=== PATIENT | male | born 1945 | race Caucasian/White ===

== ENCOUNTER 2017-07-03 20:06 | Inpatient (IN) | payer OTHER ==
[~2017-07-03] VITALS: Ht 182.9 cm; Wt 74.0 kg
[~2017-07-03 20:06] MED LIST: BUPR-79 PO; CRD1 PO; CTP1 PO; FINA5TAB PO; FLR1 PO; MULT-589 PO; PHEN-1043 PO; SERT-234 PO; SYMIN INH
[2017-07-03] MEDS ORDERED: SYMIN160 INH (20:52)
[2017-07-03] MEDS ORDERED: DOXA1TAB88 PO (20:52)
--- NOTE | 2017-07-03 21:52 | EMERGENCY ROOM VISIT NOTE ---
History Report prepared by Shivaibtheo: Kathi Lugo Under the Supervision of: Dr. Mindy Cool D.O. First contact with patient: 21:08 Chief Complaint: SHORTNESS OF BREATH Stated Complaint: TROUBLE BREATHING History of Present Illness The patient is a 72 year old male who presents to the Emergency Room with complaints of persistent shortness of breath. He has a history of COPD and states he has been short of breath for the past day. He has tried using his inhalers with minimal relief. He is still a current smoker. The patient also admits he is an alcoholic and states his last drink was earlier this morning after 5 days straight of drinking. He denies any history of seizures with his alcohol use or experiencing the DT's when he stops drinking. The patient states he was sober for 12 years before he started drinking again after losing his son and in the period of 5 months. He admits he has been nauseous and vomiting since he stopped drinking this morning. He has also experienced some abdominal pain from his vomiting. He denies any recent fevers, hematemesis, chest pain, melena or hematochezia. He denies any feelings of suicidal or homicidal ideation. He denies any visual or auditory hallucinations. Source of History: patient Onset: USED CAR [employer]OV[employer] Position: chest Quality: other (shortness of breath) Timing: other (persistent) Associated Symptoms: + nausea, + vomiting, + abdominal pain, No fevers, No chest pain, No melena, No hematochezia Review of Systems See HPI for pertinent positives & negatives. A total of 10 systems reviewed and were otherwise negative. Past Medical & Surgical Medical Problems: (1) Alcohol withdrawal (2) COPD (chronic obstructive pulmonary disease) (3) Hypertensive urgency (4) Mild emphysema Family History Diabetes mellitus Heart disease Hypertension Social History Smoking Status: Current Every Day Smoker Alcohol Use: occasionally Drug Use: none Marital Status: Housing Status: lives alone Occupation Status: employed Current/Historical Medications Scheduled Budesonide/Formoterol Fumarate (Symbicort 160/4.5 Inhaler ), 2 PUFFS INH BID Doxazosin Mesylate (Doxazosin Mesylate), 1 MG PO HS Sertraline (Zoloft), 2 TABS PO DAILY Allergies Coded Allergies: No Known Allergies (Unverified , 07/03/17) Physical Exam Vital Signs Date Time Temp Pulse Resp B/P (MAP) Pulse Ox O2 Delivery O2 Flow Rate FiO2 07/04/17 02:01 111 22 195/126 96 Room Air 07/04/17 01:35 109 26 201/128 96 Room Air 07/04/17 00:00 66 14 191/98 94 Room Air 07/03/17 23:49 68 07/03/17 23:10 94 16 187/119 97 Room Air 07/03/17 20:30 96 Room Air 07/03/17 20:18 36.3 93 20 137/91 95 Physical Exam GENERAL: Patient is alert, ill appearing, well nourished, no distress, non- toxic. EYE EXAM: normal conjunctiva, PERRL and EOM's grossly intact OROPHARYNX: no exudate, no erythema, lips, buccal mucosa, and tongue normal, mucous membranes are dry NECK: supple, no nuchal rigidity, no adenopathy, non-tender LUNGS: Breath sounds are decreased. Normal chest wall mechanics. No wheezes, rhonchi or rails. HEART: no murmurs, S1 normal and S2 normal ABDOMEN: abdomen soft, non-tender, normo-active bowel sounds, no masses, no rebound or guarding. BACK: Back is symmetrical on inspection and there is no deformity, no midline tenderness, no CVA tenderness. SKIN: no rashes and no bruising UPPER EXTREMITIES: upper extremities are grossly normal. LOWER EXTREMITIES: No pitting edema. NEURO EXAM: Fine tremor. Normal sensorium, cranial nerves II-XII grossly intact , normal speech, no gross weakness of arms, no gross weakness of legs. Medical Decision & Procedures ER Provider Diagnostic Interpretation: Radiology results have been interpreted and reviewed by me. ABDOMEN X-RAY 2 areas of plate like atelectasis in the left lung. No effusion. No wide mediastinum. No focal consolidation. Radiology results have been interpreted by the radiologist and reviewed by me. CT CHEST With Contrast: Comparison: CXR 07/03/17. There is rounded atelectasis in the left lower lobe with pleural thickening posteriorly and a small pleural calcification, possibly the sequela of previous pulmonary infection or asbestos-related pleural disease. There is no airspace consolidation, pleural effusion, or pneumothorax. There is mild centrilobular emphysema. Normal heart size. No pericardial effusion. Normal caliber main pulmonary artery. Thoracic aortic atherosclerosis without aneurysm. Multicompartment mediastinal lymph nodes, not significant by size criteria. Unremarkable visualized upper abdomen. No acute osseous findings. Radiologist: Cullen Xavier M.D. Laboratory Results Test 07/03/17 22:10 07/04/17 01:41 07/04/17 01:45 Immature Granulocyte % (Auto) 0.2 % White Blood Count 6.01 K/uL (4.8-10.8) Red Blood Count 4.91 M/uL (4.7-6.1) Hemoglobin 14.5 g/dL (14.0-18.0) Hematocrit 42.1 % (42-52) Mean Corpuscular Volume 85.7 fL (80-100) Mean Corpuscular Hemoglobin 29.5 pg (25-34) Mean Corpuscular Hemoglobin Concent 34.4 g/dl (32-36) Platelet Count 97 K/uL (130-400) Mean Platelet Volume 10.7 fL (7.4-10.4) Neutrophils (%) (Auto) 82.4 % Lymphocytes (%) (Auto) 8.5 % Monocytes (%) (Auto) 8.2 % Eosinophils (%) (Auto) 0.5 % Basophils (%) (Auto) 0.2 % Neutrophils # (Auto) 4.96 K/uL (1.4-6.5) Lymphocytes # (Auto) 0.51 K/uL (1.2-3.4) Monocytes # (Auto) 0.49 K/uL (0.11-0.59) Eosinophils # (Auto) 0.03 K/uL (0-0.5) Basophils # (Auto) 0.01 K/uL (0-0.2) Immature Granulocyte # (Auto) 0.01 K/uL (0.00-0.02) Platelet Estimate DECREASED Phosphorus Level 2.7 mg/dl (2.5-4.9) Magnesium Level 2.3 mg/dl (1.8-2.4) Total Bilirubin 0.7 mg/dl (0.2-1) Aspartate Amino Transf (AST/SGOT) 84 U/L (15-37) Alanine Aminotransferase (ALT/SGPT) 31 U/L (12-78) Alkaline Phosphatase 95 U/L (45-117) Troponin I < 0.015 ng/ml (0-0.045) Pro-B-Type Natriuretic Peptide 97 pg/ml (0-900) Total Protein 7.9 gm/dl (6.4-8.2) Albumin 3.9 gm/dl (3.4-5.0) Globulin 4.0 gm/dl (2.5-4.0) Albumin/Globulin Ratio 1.0 (0.9-2) Ethyl Alcohol mg/dL 35.0 mg/dl (0-3) Urine Color YELLOW Urine Appearance CLEAR (CLEAR) Urine pH 6.5 (4.5-7.5) Urine Specific [place] 1.025 (1.000-1.030) Urine Protein NEG (NEG) Urine Glucose (UA) TRACE (NEG) Urine Ketones TRACE (NEG) Urine Occult Blood TRACE (NEG) Urine Nitrite NEG (NEG) Urine Bilirubin NEG (NEG) Urine Urobilinogen NEG (NEG) Urine Leukocyte Esterase SMALL (NEG) Urine WBC (Auto) 1-5 /hpf (0-5) Urine RBC (Auto) 0-4 /hpf (0-4) Urine Hyaline Casts (Auto) 0 /lpf (0-5) Urine Epithelial Cells (Auto) 5-10 /lpf (0-5) Urine Bacteria (Auto) NEG (NEG) Urine Opiates Screen NEG (NEG) Urine Methadone, Qualitative NEG (NEG) Urine Barbiturates NEG (NEG) Urine Phencyclidine (PCP) Level NEG (NEG) Ur Amphetamine/Methamphetamine NEG (NEG) MDMA (Ecstasy) Screen NEG (NEG) Urine Benzodiazepines Screen NEG (NEG) Urine Cocaine Metabolite NEG (NEG) Urine Marijuana (THC) NEG (NEG) Bedside Lactic Acid Venous 2.76 mmol/L (0.90-1.70) Laboratory results per my review. Medications Administered Medications (Trade) Dose Ordered Sig/Frances Route Start Time Stop Time Status Last Admin Dose Admin Sodium Chloride 1,000 ml @ 999 mls/hr Q1H1M STAT IV 07/03/17 21:53 07/03/17 22:53 DC 07/03/17 23:50 999 MLS/HR Diazepam (Valium Inj) 5 mg NOW STAT IV 07/03/17 22:49 07/03/17 22:50 DC 07/03/17 23:51 5 MG Sodium Chloride 1,000 ml @ 999 mls/hr Q1H1M STAT IV 07/03/17 23:04 07/04/17 00:04 DC 07/03/17 23:51 999 MLS/HR Albuterol/ Ipratropium (Duoneb) 3 ml NOW STAT INH 07/04/17 00:02 07/04/17 00:03 DC 07/04/17 01:53 3 ML Multivitamins 10 ml/Thiamine HCl 100 mg/Folic Acid 1 mg/Sodium Chloride 1,011.2 ml @ 500 mls/ hr Q2H2M ONCE IV 07/04/17 01:15 07/04/17 03:16 DC 07/04/17 01:53 500 MLS/HR Methylprednisolone Sodium Succinate (Solu-Medrol IV) 125 mg NOW STAT IV 07/04/17 01:51 07/04/17 01:52 DC 07/04/17 01:55 125 MG Pantoprazole Sodium 40 mg/ Syringe 10 ml @ 5 mls/min NOW ONCE IV 07/04/17 02:00 07/04/17 02:01 DC 07/04/17 02:17 5 MLS/MIN Diazepam (Valium Inj) 5 mg NOW STAT IV 07/04/17 02:00 07/04/17 02:01 DC 07/04/17 02:18 5 MG ECG Indication: SOB/dyspnea Rate (beats per minute): 85 Rhythm: sinus rhythm Findings: no acute ischemic change, no ectopy, other (normal axis, normal intervals) ED Course 2142: The patient was evaluated in room C2. A complete history and physical exam was performed. 2153: NSS 1000 ml @ 999 mls/hr IV. 2249: Valium 5 mg IV. 2304: NSS 1000 ml @ 999 mls/hr IV. 0000: I reevaluated the patient. He states he feels better after receiving the Valium and IV fluids. 0002: Duoneb 3 ml INH. 0115: Multivitamins 10 ml/Thiamine HCl 100 mg/Folic Acid 1 mg/NSS 1011.2 ml @ 500 mls/hr IV. 0151: Solu-Medrol 125 mg IV. 0200: Pantoprazole Sodium 40 mg/Syringe 0208: I reevaluated the patient. He is still hypertensive. He is not tachycardic. He is otherwise resting comfortably. I discussed my recommendation that he remain in the hospital for further evaluation and management. He verbalized complete understanding and agreement. 0220: I discussed the patients case with Dr. Tolliver, FP resident working with [facility] Hospitalist. The patient will be further evaluated. Medical Decision Prior records/ancillary studies reviewed. Triage Nursing notes reviewed. The patient's history was concerning for respiratory difficulties. Differential diagnosis: Etiologies such as infections, reactive airway disease, pneumonia, pneumothorax , COPD, CHF, cardiac ischemia, pulmonary embolism, musculoskeletal, gastrointestinal, as well as others were entertained. No evidence for DT's, no seizures. Pt hypertensive but not tachycardic, no hallucinations. No evidence of occult infection, not hypoxic. Likely breathing worse from not using inhalers this week while driving. Doubt PE, cxr abnormal but CT without any additional acute pathology. Thrombocytopenia likely chronic from EtOH. No evidence of infectious etiology. Pt given IVF as AG and elevated lactate likely from Etoh and dehydration. Lactate improved. Doubt occult bacteremia/sepsis. Pt given valium to help with withdrawal sx. Pt admitted for continued monitoring given age, risk, sx. BP improved with valium but would begin to escalate again as effects of valium would wear off. Doubt cardiac pathology, no evidence fo Gi bleed, given protonix as a precaution given etoh hx and vomiting. Abd soft/nt, doubt additional Gi pathology. Medication Reconcilliation Current Medication List: was personally reviewed by me Blood Pressure Screening Patient's blood pressure: Elevated blood pressure Blood pressure disposition: Referred to PCP Consults Time Called: 0201 Consulting Physician: Dr. Tolliver, [facility] Hospitalist Returned Call: 0220 I discussed the patients case with Dr. Tolliver, [facility] Hospitalist. The patient will be further evaluated. Impression Primary Impression: COPD exacerbation Additional Impressions: Alcohol withdrawal Thrombocytopenia Hypertension Scribe Attestation The scribe's documentation has been prepared under my direction and personally reviewed by me in its entirety. I confirm that the note above accurately reflects all work, treatment, procedures, and medical decision making performed by me. Departure Information Dispostion Being Evaluated By Hospitalist Referrals No Doctor, Assigned (PCP) Patient Instructions [facility] Problem Qualifiers Additional Impressions: Alcohol withdrawal Complication of substance-induced condition: uncomplicated Qualified Codes: F10.230 - Alcohol dependence with withdrawal, uncomplicated Hypertension Hypertension type: essential hypertension Qualified Codes: I10 - Essential ( primary) hypertension
[2017-07-03] MEDS ORDERED: SODIUM CHLORIDE 0.9% 1000ML 1,000 ML IV STA ×2 (21:53→23:04)
[2017-07-03] MEDS ORDERED: DIAZEPAM INJ 5 MG/ML 2 ML CARP IV STA (22:49)
[2017-07-03 23:01] LABS: HEMATOCRIT 42.1 % (42-52); MEAN CELL VOLUME 85.7 fL (80-100); MEAN CORPUSCULAR HEMOGLOBIN 29.5 pg (25-34); MEAN CORPUSCULAR HGB CONC 34.4 g/dl (32-36); MEAN PLATELET VOLUME 10.7 fL (7.4-10.4); PLATELET COUNT 97 K/uL (130-400); RED BLOOD COUNT 4.91 M/uL (4.7-6.1); WHITE BLOOD COUNT 6.01 K/uL (4.8-10.8)
[2017-07-03 23:03] LABS: ALT/SGPT 31 U/L (12-78); AST/SGOT 84 U/L (15-37); BASO % 0.2 %; BASO ABS # 0.01 K/uL (0-0.2); BLOOD UREA NITROGEN 21 mg/dl (7-18); BUN/CREATININE RATIO 18.6 (10-20); CALCIUM 8.9 mg/dl (8.5-10.1); CARBON DIOXIDE 20 mmol/L (21-32); CHLORIDE 101 mmol/L (98-107); COMPLETE YES; EOS % 0.5 %; GLUCOSE 92 mg/dl (70-99); IG% 0.2 %; LYMPH % 8.5 %; LYMPH ABS # 0.51 K/uL (1.2-3.4); MAGNESIUM 2.3 mg/dl (1.8-2.4); MONO % 8.2 %; NEUT % 82.4 %; PLT ESTIMATE DECREASED; SODIUM 136 mmol/L (136-145)
[2017-07-03 23:08] LABS: ALKALINE PHOSPHATASE 95 U/L (45-117); PHOSPHORUS 2.7 mg/dl (2.5-4.9)
[2017-07-04] VITALS (16 sets, daily range): BP systolic 137–198; BP diastolic 84–117; PULSE 81–115; TEMP 36.3–36.9; O2SAT 94–97; Ht 182.9 cm; Wt 74.0 kg
[2017-07-04] MEDS ORDERED: ALBUT/IPRATROP 3MG/0.5MG NEB 3 ML VIAL INH STA (00:02)
[2017-07-04] MEDS ORDERED: OPTIRAY 320 IV PRN (00:15)
[2017-07-04] MEDS ORDERED: MULTI-VITAMIN INFUSION INJ 10 ML, THIAMINE HCL INJ 100 MG, FoLIC ACID INJ 1 MG in SODIU... IV ONE (01:15)
[2017-07-04] MEDS ORDERED: METHYLPREDNISOLONE 125 MG VIAL IV STA (01:51)
[2017-07-04 01:52] LABS: URINE APPEARANCE CLEAR (CLEAR); URINE BILIRUBIN NEG (NEG); URINE COLOR YELLOW; URINE NITRITE NEG (NEG); URINE PH 6.5 (4.5-7.5); URINE SPECIFIC GRAVITY 1.025 (1.000-1.030); UROBILINOGEN NEG (NEG); ZZUR CULT IF INDIC CLEAN CATCH NO
[2017-07-04] MEDS ORDERED: PANTOprazole INJ 40 MG in SYRINGE 0 ML IV ONE (02:00)
[2017-07-04] MEDS ORDERED: DIAZEPAM INJ 5 MG/ML 2 ML CARP IV STA (02:00)
[2017-07-04 02:10] LABS: BENZODIAZEPINE, URINE NEG (NEG); COCAINE,URINE NEG (NEG); PHENCYCLIDINE, URINE NEG (NEG)
[2017-07-04 02:19] LABS: MANUAL MICROSCOPIC REQUIRED? NO; REVIEW REQ? NO
[2017-07-04] MEDS ORDERED: LORAZEPAM 1 MG TAB PO PRN (02:45)
[2017-07-04] MEDS ORDERED: MAGNESIUM HYDROXIDE SUSP 30 ML UDC PO PRN (02:45)
[2017-07-04] MEDS ORDERED: ONDANSETRON INJ 2 MG/ML 2 ML VIAL IV PRN (02:45)
[2017-07-04] MEDS ORDERED: CHLORDIAZEPOXIDE 25 MG CAP PO SCH (02:45)
[2017-07-04] MEDS ORDERED: ALUMINUM/MAGNESIUM/SIMETH (MAALOX MAX) 30 ML UDC PO PRN (02:45)
[2017-07-04] MEDS ORDERED: HydrALAZINE HCL 20 MG/ML VIAL IV. PRN (02:45)
[2017-07-04] MEDS ORDERED: ACETAMINOPHEN 325 MG TAB PO PRN (02:45)
[2017-07-04] MEDS ORDERED: POLYETHYLENE (MIRALAX) 17 GM PACK PO PRN (02:45)
--- NOTE | 2017-07-04 03:00 | History and Physical ---
History & Physical Date & Time of Service: Jul 04, 2017 at 02:46 Chief Complaint: Trouble Breathing Primary Care Physician: No Doctor, Assigned History of Present Illness Source: patient, family, hospital records Mr Sauceda is a 72 yo M with known cigarette & alcohol abuse (last admission 1 year ago, had previously been sober about 12 years), who presents today after 5 days of binge drinking which he stopped doing this morning. He reports he has COPD and he felt short of breath today and his inhaler did not provide relief. He denies chest pain. He was previously sober for a long time, but lost his and son in a 5 month period, which made him drink again. Apparently daughter was here earlier (I did not meet her though). He reports he does have high BP but does not take medications for it. Past Medical/Surgical History PMHx Emphysema Alcohol abuse BPH HTN PSHx None Family History Diabetes mellitus Heart disease Hypertension Social History Smoking Status: Current Every Day Smoker Drug Use: none Marital Status: Occupational Status: employed Multi-Drug Resistant Organisms History of MDRO: No Allergies Coded Allergies: No Known Allergies (Unverified , 07/03/17) Home Medications Scheduled Budesonide/Formoterol Fumarate (Symbicort 160/4.5 Inhaler ), 2 PUFFS INH BID Doxazosin Mesylate (Doxazosin Mesylate), 1 MG PO HS Sertraline (Zoloft), 2 TABS PO DAILY Review of Systems See HPI for pertinent positives & negatives. A total of 10 systems reviewed and were otherwise negative. Physical Exam Vital Signs Date Time Temp Pulse Resp B/P (MAP) Pulse Ox O2 Delivery O2 Flow Rate FiO2 07/04/17 02:01 111 22 195/126 96 Room Air 07/04/17 01:35 109 26 201/128 96 Room Air 07/04/17 00:00 66 14 191/98 94 Room Air 07/03/17 23:49 68 07/03/17 23:10 94 16 187/119 97 Room Air 07/03/17 20:30 96 Room Air 07/03/17 20:18 36.3 93 20 137/91 95 General Appearance: WD/WN, + thin Head: normocephalic, atraumatic Eyes: normal inspection ENT: hearing grossly normal Neck: supple, no JVD Respiratory/Chest: lungs clear, normal breath sounds, no respiratory distress, + pertinent finding (after neb / steroid administration) Cardiovascular: no murmur, + tachycardia Abdomen/GI: normal bowel sounds, non tender, soft Extremities/Musculoskelatal: no calf tenderness, normal capillary refill Neurologic/Psych: alert, normal mood/affect, oriented x 3 Skin: no rash Diagnostics Laboratory Results Results Past 24 Hours Test 07/03/17 22:10 07/04/17 01:41 07/04/17 01:45 Range/Units White Blood Count 6.01 4.8-10.8 K/uL Red Blood Count 4.91 4.7-6.1 M/uL Hemoglobin 14.5 14.0-18.0 g/dL Hematocrit 42.1 42-52 % Mean Corpuscular Volume 85.7 80-100 fL Mean Corpuscular Hemoglobin 29.5 25-34 pg Mean Corpuscular Hemoglobin Concent 34.4 32-36 g/dl Platelet Count 97 130-400 K/uL Mean Platelet Volume 10.7 7.4-10.4 fL Neutrophils (%) (Auto) 82.4 % Lymphocytes (%) (Auto) 8.5 % Monocytes (%) (Auto) 8.2 % Eosinophils (%) (Auto) 0.5 % Basophils (%) (Auto) 0.2 % Neutrophils # (Auto) 4.96 1.4-6.5 K/uL Lymphocytes # (Auto) 0.51 1.2-3.4 K/uL Monocytes # (Auto) 0.49 0.11-0.59 K/uL Eosinophils # (Auto) 0.03 0-0.5 K/uL Basophils # (Auto) 0.01 0-0.2 K/uL RDW Standard Deviation 42.6 36.4-46.3 fL RDW Coefficient of Variation 13.6 11.5-14.5 % Immature Granulocyte % (Auto) 0.2 % Immature Granulocyte # (Auto) 0.01 0.00-0.02 K/uL Platelet Estimate DECREASED Sodium Level 136 136-145 mmol/L Potassium Level 4.0 3.5-5.1 mmol/L Chloride Level 101 98-107 mmol/L Carbon Dioxide Level 20 21-32 mmol/L Anion Gap 15.0 3-11 mmol/L Blood Urea Nitrogen 21 7-18 mg/dl Creatinine 1.10 0.60-1.40 mg/dl Est Creatinine Clear Calc Drug Dose 62.5 ml/min Estimated GFR () 78.4 Estimated GFR (Non- 67.7 BUN/Creatinine Ratio 18.6 10-20 Random Glucose 92 70-99 mg/dl Lactic Acid Level 5.4 0.4-2.0 mmol/L Calcium Level 8.9 8.5-10.1 mg/dl Phosphorus Level 2.7 2.5-4.9 mg/dl Magnesium Level 2.3 1.8-2.4 mg/dl Total Bilirubin 0.7 0.2-1 mg/dl Aspartate Amino Transf (AST/SGOT) 84 15-37 U/L Alanine Aminotransferase (ALT/SGPT) 31 12-78 U/L Alkaline Phosphatase 95 45-117 U/L Troponin I < 0.015 0-0.045 ng/ml Pro-B-Type Natriuretic Peptide 97 0-900 pg/ml Total Protein 7.9 6.4-8.2 gm/dl Albumin 3.9 3.4-5.0 gm/dl Globulin 4.0 2.5-4.0 gm/dl Albumin/Globulin Ratio 1.0 0.9-2 Ethyl Alcohol mg/dL 35.0 0-3 mg/dl Urine Color YELLOW Urine Appearance CLEAR CLEAR Urine pH 6.5 4.5-7.5 Urine Specific [place] 1.025 1.000-1.030 Urine Protein NEG NEG Urine Glucose (UA) TRACE NEG Urine Ketones TRACE NEG Urine Occult Blood TRACE NEG Urine Nitrite NEG NEG Urine Bilirubin NEG NEG Urine Urobilinogen NEG NEG Urine Leukocyte Esterase SMALL NEG Urine WBC (Auto) 1-5 0-5 /hpf Urine RBC (Auto) 0-4 0-4 /hpf Urine Hyaline Casts (Auto) 0 0-5 /lpf Urine Epithelial Cells (Auto) 5-10 0-5 /lpf Urine Bacteria (Auto) NEG NEG Urine Opiates Screen NEG NEG Urine Methadone, Qualitative NEG NEG Urine Barbiturates NEG NEG Urine Phencyclidine (PCP) Level NEG NEG Ur Amphetamine/Methamphetamine NEG NEG MDMA (Ecstasy) Screen NEG NEG Urine Benzodiazepines Screen NEG NEG Urine Cocaine Metabolite NEG NEG Urine Marijuana (THC) NEG NEG Bedside Lactic Acid Venous 2.76 0.90-1.70 mmol/L Diagnostic Radiology ABDOMEN X-RAY 2 areas of plate like atelectasis in the left lung. No effusion. No wide mediastinum. No focal consolidation. Radiology results have been interpreted by the radiologist and reviewed by me. CT CHEST With Contrast: Comparison: CXR 07/03/17. There is rounded atelectasis in the left lower lobe with pleural thickening posteriorly and a small pleural calcification, possibly the sequela of previous pulmonary infection or asbestos-related pleural disease. There is no airspace consolidation, pleural effusion, or pneumothorax. There is mild centrilobular emphysema. Normal heart size. No pericardial effusion. Normal caliber main pulmonary artery. Thoracic aortic atherosclerosis without aneurysm. Multicompartment mediastinal lymph nodes, not significant by size criteria. Unremarkable visualized upper abdomen. No acute osseous findings. Normal EKG (LVH criteria) Impression Assessment and Plan 72 yo M with COPD and known alcohol abuse, who presents after 5 days of drinking again with shortness of breath, with mild COPD exacerbation (likely from overall lack of compliance and continued smoking) Acute on Chronic COPD Exacerbation - Duonebs - Solu-medrol given in ED, will switch to prednisone 50mg x 5 days - PRN O2 - Smoking cessation consult Alcohol withdrawal - Librium / Ativan - Seizure precautions - Admit to Tele HTN - Hydralazine PRN BPH - Restart doxazosin Elevated lactate in ED - Decreased on repeat draw, and then received 2L fluids - No evidence of infection at this time - CT of chest ruled out VTE: Heparin CODE STATUS: Full (would discuss w/pt tomorrow) DISPO: Tele Resident Physician Supervision Note: I was present with Dr. Tolliver during the history and exam. I discussed the case with the resident and agree with the findings and plan as documented in the note. Any exceptions or clarifications are listed here: 72 y/o M Hx ETOH abuse and COPD - active smoker - presenting with early withdrawal and SOB - likely COPD exacerbation OE AAO x 2 S1,2 tachy, reg CTA - reduced air entry NT, ND No CCE Pt appears oriented but insists on getting up and walking around the room naked P: Treat for COPD exacerbation Treat fro ETOH withdrawal Smoking and ETOH cessation Documented By: Ricky Ahumada VTE Prophylaxis VTE Risk Assessment Done? Y/N: Yes Risk Level: Moderate Resident Tracking Resident Involvement: Resident Care Provided Care Provided: Adult Hospital Medicine
[2017-07-04] MEDS ORDERED: HydrALAZINE HCL 20 MG/ML VIAL ONE (03:27)
[2017-07-04] MEDS: NSS + 20MEQ KCL 1000ML 1,000 ML IV SCH ×2 (04:38→17:45)
[2017-07-04] MEDS: THIAMINE HCL INJ 100 MG in SYRINGE 9 ML IV SCH (04:39)
[2017-07-04] MEDS: LORAZEPAM 2 MG/ML 1 ML VIAL IV PRN (04:48)
[2017-07-04] MEDS: DOXAZosin TAB 1 MG TAB PO SCH ×2 (05:17→20:52)
[2017-07-04] MEDS: CHLORDIAZEPOXIDE 25MG 1ST DOSE PO SCH ×4 (05:17→21:22)
[2017-07-04] MEDS ORDERED: METOPROLOL TARTRATE 1 MG/ML VIAL IV STA ×2 (05:31→05:49)
[2017-07-04 06:43] LABS: INR 0.9 (0.9-1.1)
[2017-07-04] MEDS: ALBUT/IPRATROP 3MG/0.5MG NEB 3 ML VIAL INH SCH ×4 (07:05→19:15)
--- NOTE | 2017-07-04 07:39 | DIAGNOSTIC IMAGING REPORT ---
CHEST CT WITH CONTRAST CT DOSE: 276.40 mGy.cm HISTORY: Cough. Abnormal chest x-ray. TECHNIQUE: Multiaxial CT images of the chest were performed following the intravenous administration of contrast. A dose lowering technique was utilized adhering to the principles of ALARA. COMPARISON: Chest 05/19/2016. FINDINGS: Small amount of mucoid material within the right mainstem bronchus and partial opacification of the bilateral lower lobe bronchi. There is mild thickening of the central and lower lobe bronchi. No pneumothorax. Mild emphysema. A few tiny tree-in-bud nodular opacities within the base of right lower lobe medially. Patchy and linear densities seen within the left lower lobe posteriorly favor scarring/atelectasis. There is left basilar pleural thickening. No definite pleural or pericardial effusion. The heart is normal in size. No mediastinal or hilar lymphadenopathy. Normal caliber thoracic aorta. The main pulmonary arteries are patent. Severe hepatic steatosis. The visualized liver and adrenal glands are unremarkable. IMPRESSION: 1. Patchy and linear densities within the left lower lobe posteriorly favor scarring/atelectasis. There is also mild left basilar pleural thickening which is likely chronic. 2. A few tiny tree-in-bud nodular opacities within the base of the right lower lobe which favor mild inflammatory/infectious change. 3. Mild central and lower lobe bronchial wall thickening with a few opacified lobe bronchi. 4. Mild emphysema. 5. Severe hepatic steatosis. Electronically signed by: Chris Malave M.D. 07/04/2017 7:37 AM Dictated Date/Time: 07/04/2017 7:30 AM
[2017-07-04] MEDS: HEPARIN SOD 5000 UNIT/0.5 ML CARP SQ SCH ×3 (07:54→21:24)
[2017-07-04] MEDS: BUDESONIDE/FORMOTEROL FUMARATE 160/4.5 60 PUFFS/INHALER INH SCH ×2 (07:56→20:52)
--- NOTE | 2017-07-04 08:04 | DIAGNOSTIC IMAGING REPORT ---
AP CHEST WITH ABDOMINAL SERIES CLINICAL HISTORY: Cough. Vomiting. FINDINGS: An AP upright chest radiograph is compared to study dated 05/19/2016. The examination is significantly degraded by patient rotation. The cardiomediastinal silhouette is unremarkable. Emphysema and chronic interstitial thickening are similar to previous. Linear atelectasis versus scarring are noted in the left mid to lower lung. No airspace consolidation is identified typical for pneumonia and there is no large pleural effusion. No pneumothorax is seen. The bony skeletal structures are osteopenic. Degenerative change is seen throughout the thoracic spine. Supine and erect abdominal radiographs are obtained. No prior studies are available for comparison at the time of dictation. There is a nonobstructed abdominal bowel gas pattern. A mildly thick walled bowel loop is suggested in the right lower quadrant, possibly representing right colon. No evidence of intraperitoneal free air is seen. There are no abnormal abdominal calcifications. The lumbosacral spine and bony pelvis appear intact. Lumbosacral spondylosis is observed. IMPRESSION: 1. Emphysema and chronic parenchymal changes as above. There is no acute cardiopulmonary abnormality. 2. Nonobstructed abdominal bowel gas pattern. 3. A mildly thick walled bowel loop is suggested in the right lower quadrant, likely representing the right colon. Cortical clinically for evidence of colitis. Electronically signed by: Luis Robertson M.D. 07/04/2017 8:02 AM Dictated Date/Time: 07/04/2017 7:59 AM
[2017-07-04] MEDS: LORAZEPAM INJ 1 MG in SYRINGE 0.5 ML IV PRN ×2 (08:27→21:23)
[2017-07-04] MEDS ORDERED: LORAZEPAM INJ 3 MG in SYRINGE 1.5 ML IV PRN (08:30)
[2017-07-04] MEDS ORDERED: LORAZEPAM INJ 2 MG in SYRINGE 1 ML IV PRN (08:30)
[2017-07-04] MEDS: HydrALAZINE HCL 20 MG/ML VIAL IV. PRN (08:55)
[2017-07-04 13:16] LABS: HEMATOCRIT 42.5 % (42-52); MEAN CELL VOLUME 86.7 fL (80-100); MEAN CORPUSCULAR HEMOGLOBIN 30.2 pg (25-34); MEAN CORPUSCULAR HGB CONC 34.8 g/dl (32-36)
[2017-07-04 13:18] LABS: MEAN PLATELET VOLUME 10.4 fL (7.4-10.4); PLATELET COUNT 68 K/uL (130-400)
--- NOTE | 2017-07-04 13:36 | Family Medicine Progress Note ---
Progress Note Date of Service Jul 04, 2017. Subjective Pt evaluation today including: conversation w/ patient, physical exam, chart review, lab review, review of studies Voiding: dee catheter in place, voiding difficulty (pt has BPH and consequent urinary retention) 72M with known alcoholic disease admitted overnight for SOB and urinary retention after having spent 5 days drinking. Pt's son and daughter brought him to the ED from home when pt was overly intoxicated. Pt reports having drunk 1-2 fifths of vodka per day for the last five days, last drink being 07/03/17 in AM. Pt had been sober for 12 years until last year suffered a significant family event, when his and son within 5 months of one another. Pt was hospitalized after a similar binge drinking event 1 year ago then as well. Pt's PCP is with the [place], and his remaining children live in and around [place]. 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 Pt has a significant smoking history, is on treatment for his COPD, HTN and BPH at home, but had not been taking any of his medications for the last 5 days. Pt is resting in bed upright, appears sweaty and somewhat drowsy during the interview this morning, but states that he is comfortable now with the dee and feeling less anxiety than when he came in. Pt denies cough or sputum production, no chest pain, no abdominal pain. When spoke with pt re: inpatient rehab, pt stated he is not interested and wants to go home where he just recently moved in a bunch of [employer] for his business. Constitutional: + weakness Respiratory: + shortness of breath, No cough, No sputum, No dyspnea at rest Cardiovascular: No chest pain, No edema Male : + problem reported (pt reports that he was "freaking out" yesterday because he could not urinate) Psychiatric: + anxiety, + substance abuse (abuses alcohol and cigarettes) Medications Current Inpatient Medications Medications (Trade) Dose Ordered Sig/Frances Route Start Time Stop Time Status Last Admin Dose Admin Ioversol (Optiray 320) 100 ml UD PRN IV 07/04/17 00:15 07/08/17 00:14 Heparin Sodium (Porcine) (Heparin Sq 5000 Unit/0.5ml) 5,000 unit Q8 SQ 07/04/17 07:30 08/03/17 07:29 07/04/17 07:54 5,000 UNIT Potassium Chloride/Sodium Chloride 1,000 ml @ 75 mls/hr [id number] IV 07/04/17 04:30 07/05/17 19:26 07/04/17 04:38 125 MLS/HR Acetaminophen (Tylenol Tab) 650 mg Q4H PRN PO 07/04/17 02:45 08/03/17 02:44 Al Hydrox/Mg Hydrox/Simethicone (Maalox Max Susp) 15 ml Q4H PRN PO 07/04/17 02:45 08/03/17 02:44 Magnesium Hydroxide (Milk Of Magnesia Susp) 30 ml Q12H PRN PO 07/04/17 02:45 08/03/17 02:44 Ondansetron HCl (Zofran Inj) 4 mg Q6H PRN IV 07/04/17 02:45 08/03/17 02:44 Polyethylene (Miralax Powder Packet) 17 gm DAILY PRN PO 07/04/17 02:45 08/03/17 02:44 Multivitamins 10 ml/Thiamine HCl 100 mg/Folic Acid 1 mg/Sodium Chloride 1,011.2 ml @ 500 mls/ hr Q2H2M IV 07/05/17 09:00 08/04/17 08:59 Thiamine HCl 100 mg/Syringe 10 ml @ 2 mls/min Q24H IV 07/04/17 04:30 08/03/17 04:29 07/04/17 04:39 2 MLS/MIN Lorazepam (Ativan Tab) 1 mg ONE PRN PO 07/04/17 02:45 Lorazepam (Ativan Inj) PRN Dosing -Active Protocol Q1H PRN IV 07/04/17 02:45 08/03/17 02:44 07/04/17 04:48 4 MG Budesonide/ Formoterol Fumarate (Symbicort 160/ 4.5 Inh) 2 puffs BID INH 07/04/17 09:00 08/03/17 08:59 07/04/17 07:56 2 PUFFS Doxazosin Mesylate (Cardura Tab) 1 mg HS PO 07/04/17 21:00 08/03/17 20:59 07/04/17 05:17 1 MG Albuterol/ Ipratropium (Duoneb) 3 ml QIDR INH 07/04/17 08:00 08/03/17 07:59 07/04/17 11:06 3 ML Prednisone (PredniSONE TAB) 50 mg DAILY PO 07/04/17 09:00 07/09/17 08:59 07/04/17 07:56 50 MG Chlordiazepoxide (Librium Cap) 25 mg Q6H PO 07/04/17 04:00 07/04/17 22:01 07/04/17 08:54 25 MG Chlordiazepoxide (Librium Cap) 25 mg Q8H PO 07/05/17 06:00 07/05/17 22:01 Chlordiazepoxide (Librium Cap) 10 mg Q8H PO 07/06/17 06:00 07/06/17 22:01 Chlordiazepoxide (Librium Cap) 5 mg Q12H PO 07/07/17 08:00 07/07/17 20:01 Hydralazine HCl (HydrALAZINE INJ) 10 mg Q4H PRN IV. 07/04/17 05:45 08/03/17 05:44 07/04/17 08:55 10 MG Lorazepam 1 mg/ Syringe 1 ml @ 1 mls/min Q1H PRN IV 07/04/17 08:15 08/03/17 08:14 07/04/17 08:27 1 MLS/MIN Lorazepam 2 mg/ Syringe 2 ml @ 1 mls/min Q1H PRN IV 07/04/17 08:30 08/03/17 08:29 Lorazepam 3 mg/ Syringe 3 ml @ 1 mls/min Q1H PRN IV 07/04/17 08:30 08/03/17 08:29 Objective Vital Signs Date Time Temp Pulse Resp B/P (MAP) Pulse Ox O2 Delivery O2 Flow Rate FiO2 07/04/17 11:07 88 18 96 Room Air 07/04/17 10:00 36.7 89 17 157/94 (115) 95 Room Air 07/04/17 08:00 Room Air 07/04/17 07:18 82 200/113 07/04/17 07:05 81 18 95 Room Air 07/04/17 06:56 36.3 81 18 193/116 (141) 97 Room Air 07/04/17 06:45 36.3 81 18 193/116 (141) 97 Room Air 07/04/17 06:30 81 183/116 (138) 07/04/17 05:53 99 198/112 07/04/17 05:15 99 198/112 (140) 07/04/17 04:00 95 Room Air 07/04/17 04:00 36.5 115 26 196/117 95 Room Air 07/04/17 03:45 36.5 115 26 196/117 (143) 95 Room Air 07/04/17 03:23 107 18 218/137 93 07/04/17 02:01 111 22 195/126 96 Room Air 07/04/17 01:35 109 26 201/128 96 Room Air 07/04/17 00:00 66 14 191/98 94 Room Air 07/03/17 23:49 68 07/03/17 23:10 94 16 187/119 97 Room Air 07/03/17 20:30 96 Room Air 07/03/17 20:18 36.3 93 20 137/91 95 Physical Exam General Appearance: + mild distress, + cachetic, + thin Eyes: normal inspection, EOMI Neck: supple, no adenopathy, no JVD Respiratory/Chest: chest non-tender, no respiratory distress, no accessory muscle use, + wheezing (expiratory wheezes at LLL) Cardiovascular: regular rate, rhythm, no edema, no JVD, no murmur Abdomen: normal bowel sounds, non tender, soft Neurologic/Psychiatric: + depressed affect, + pertinent finding (drowsy and dozing off during initial interview; more alert later during lunch) Skin: normal color, warm/dry, no rash, + diaphoresis Laboratory Results 07/04/17 12:58 Test 07/03/17 22:10 07/04/17 01:41 07/04/17 01:45 07/04/17 05:49 Immature Granulocyte % (Auto) 0.2 % White Blood Count 6.01 K/uL (4.8-10.8) Red Blood Count 4.91 M/uL (4.7-6.1) Hemoglobin 14.5 g/dL (14.0-18.0) Hematocrit 42.1 % (42-52) Mean Corpuscular Volume 85.7 fL (80-100) Mean Corpuscular Hemoglobin 29.5 pg (25-34) Mean Corpuscular Hemoglobin Concent 34.4 g/dl (32-36) Platelet Count 97 K/uL (130-400) Mean Platelet Volume 10.7 fL (7.4-10.4) Neutrophils (%) (Auto) 82.4 % Lymphocytes (%) (Auto) 8.5 % Monocytes (%) (Auto) 8.2 % Eosinophils (%) (Auto) 0.5 % Basophils (%) (Auto) 0.2 % Neutrophils # (Auto) 4.96 K/uL (1.4-6.5) Lymphocytes # (Auto) 0.51 K/uL (1.2-3.4) Monocytes # (Auto) 0.49 K/uL (0.11-0.59) Eosinophils # (Auto) 0.03 K/uL (0-0.5) Basophils # (Auto) 0.01 K/uL (0-0.2) Immature Granulocyte # (Auto) 0.01 K/uL (0.00-0.02) Platelet Estimate DECREASED Est Creatinine Clear Calc Drug Dose 62.5 ml/min Phosphorus Level 2.7 mg/dl (2.5-4.9) Magnesium Level 2.3 mg/dl (1.8-2.4) Total Bilirubin 0.7 mg/dl (0.2-1) Aspartate Amino Transf (AST/SGOT) 84 U/L (15-37) Alanine Aminotransferase (ALT/SGPT) 31 U/L (12-78) Alkaline Phosphatase 95 U/L (45-117) Troponin I < 0.015 ng/ml (0-0.045) Pro-B-Type Natriuretic Peptide 97 pg/ml (0-900) Total Protein 7.9 gm/dl (6.4-8.2) Albumin 3.9 gm/dl (3.4-5.0) Globulin 4.0 gm/dl (2.5-4.0) Albumin/Globulin Ratio 1.0 (0.9-2) Ethyl Alcohol mg/dL 35.0 mg/dl (0-3) Urine Color YELLOW Urine Appearance CLEAR (CLEAR) Urine pH 6.5 (4.5-7.5) Urine Specific [place] 1.025 (1.000-1.030) Urine Protein NEG (NEG) Urine Glucose (UA) TRACE (NEG) Urine Ketones TRACE (NEG) Urine Occult Blood TRACE (NEG) Urine Nitrite NEG (NEG) Urine Bilirubin NEG (NEG) Urine Urobilinogen NEG (NEG) Urine Leukocyte Esterase SMALL (NEG) Urine WBC (Auto) 1-5 /hpf (0-5) Urine RBC (Auto) 0-4 /hpf (0-4) Urine Hyaline Casts (Auto) 0 /lpf (0-5) Urine Epithelial Cells (Auto) 5-10 /lpf (0-5) Urine Bacteria (Auto) NEG (NEG) Urine Opiates Screen NEG (NEG) Urine Methadone, Qualitative NEG (NEG) Urine Barbiturates NEG (NEG) Urine Phencyclidine (PCP) Level NEG (NEG) Ur Amphetamine/Methamphetamine NEG (NEG) MDMA (Ecstasy) Screen NEG (NEG) Urine Benzodiazepines Screen NEG (NEG) Urine Cocaine Metabolite NEG (NEG) Urine Marijuana (THC) NEG (NEG) Bedside Lactic Acid Venous 2.76 mmol/L (0.90-1.70) Prothrombin Time 10.0 SECONDS (9.0-12.0) Prothromb Time International Ratio 0.9 (0.9-1.1) Test 07/04/17 12:57 07/04/17 12:58 Red Blood Count 4.90 M/uL (4.7-6.1) Mean Corpuscular Volume 86.7 fL (80-100) Mean Corpuscular Hemoglobin 30.2 pg (25-34) Mean Corpuscular Hemoglobin Concent 34.8 g/dl (32-36) RDW Standard Deviation 43.9 fL (36.4-46.3) RDW Coefficient of Variation 13.8 % (11.5-14.5) Mean Platelet Volume 10.4 fL (7.4-10.4) Assessment and Plan 72M here for EtOH withdrawal with SOB (COPD exac vs PNA vs anxiety) and oliguria SOB sec to COPD exac - pt non compliant with his COPD medications and is a lifetime smoker - Solumedrol given in ED, switched now to Prednisone 50 PO daily - continuing home Symbicort and Duoneb - lactic acid trending down, procalcitonin negative, afebrile - O2 saturations 95-96 on room air - O2 ordered PRN but pt has not used it - CT of chest showed mild emphysema, chronic atelectasis in left lobe, mild inflammatory/infectious change. Also, severe hepatic steatosis. - Smoking cessation consult ordered EtOH withdrawal - AWSS scores are trending down per nurses, as of 10 am AWSS=2 and so did not qualify for any additional doses of Ativan. - titrating Librium dose so as not to cause excessive drowsiness - pt has used inpatient rehab for his alcohol abuse in the past, goal is to have him do that here but pt has expressed disinterest. Will discuss again tomorrow. Hypertension, chronic - continuing home Clonidine - BPs were high and labile on admission 187-218/91-137. Last BP is 166/97. BPH - after being given fluids, pt reported inability to empty his bladder. - dee in place - continuing home Doxazosin VTE ppx: Heparin Code status: full Dispo: Tele. Spoke with daughter (Ira [phone]) who lives 3 hours away and would like a daily afternoon update via phone. Pt has verbally agreed to this. Continued [facility] stay due to: abnormal vital signs, multiple IV medications needed Discharge planning: home Reviewed: Pt Seen/Exam by Me History feeling better since admission. upset about his drinking. would like to quit. breathing ok. Constitutional: denies: fever Cardiovascular: denies chest pain Gastrointestinal/Abdominal: negative: abdominal pain General Appearance: no apparent distress Respiratory: lungs clear, no respiratory distress Cardiovascular: regular rate, rhythm Gastrointestinal: normal bowel sounds, non tender, soft Neurologic/Psychiatric: alert, oriented x 3, other (anxious) Skin Characteristics: warm/dry Assessment/Plan Resident Physician Supervision Note: I was present with Dr. Robles in bedside. I verified the carson history and physical, reviewed labs and image studies, discussed the case with the resident and agree with the findings and care plan.
--- NOTE | 2017-07-04 13:41 | Medical Student: [facility] ---
Med Student Progress Note Date of Service Jul 04, 2017. Subjective Pt evaluation today including: conversation w/ patient, physical exam, chart review, lab review, review of studies Patient reports improvement since admission to the hospital. He continues being monitored for symptoms of withdrawal. He does not appear to be in any respiratory distress and he states he is comfortable. He is drowsy this morning after receiving ativan for high AWSS scores. Unable to address the patient's psychiatric problems at this time as he continued to fall asleep while I was talking to him. He states, "I would love for this to be my last drink, but I always end up not listening to my logical self and find myself drinking again for one reason or another." He would like to quit drinking, and states that he has done it in the past. His drinking has been more difficult to control since his and son . Review of Systems Constitutional: + sweats, + fatigue, No fever, No chills Eyes: No worsening of vision Respiratory: + dyspnea on exertion, No cough, No sputum, No wheezing, No shortness of breath Cardiac: No chest pain, No orthopnea, No edema, No palpitations Abdomen: No pain, No nausea, No vomiting, No diarrhea, No constipation Musculoskeletal: No joint pain Male : + slowing stream (Secondary to BPH), No dysuria, No urinary frequency , No incontinence Psychiatric: + depression symptoms Skin: No rash, No itch All Other Systems: Reviewed and Negative Objective Vital Signs Date Time Temp Pulse Resp B/P (MAP) Pulse Ox O2 Delivery O2 Flow Rate FiO2 07/04/17 11:07 88 18 96 Room Air 07/04/17 10:00 36.7 89 17 157/94 (115) 95 Room Air 07/04/17 08:00 Room Air 07/04/17 07:18 82 200/113 07/04/17 07:05 81 18 95 Room Air 07/04/17 06:56 36.3 81 18 193/116 (141) 97 Room Air 07/04/17 06:45 36.3 81 18 193/116 (141) 97 Room Air 07/04/17 06:30 81 183/116 (138) 07/04/17 05:53 99 198/112 07/04/17 05:15 99 198/112 (140) 07/04/17 04:00 95 Room Air 07/04/17 04:00 36.5 115 26 196/117 95 Room Air 07/04/17 03:45 36.5 115 26 196/117 (143) 95 Room Air 07/04/17 03:23 107 18 218/137 93 07/04/17 02:01 111 22 195/126 96 Room Air 07/04/17 01:35 109 26 201/128 96 Room Air 07/04/17 00:00 66 14 191/98 94 Room Air 07/03/17 23:49 68 07/03/17 23:10 94 16 187/119 97 Room Air 07/03/17 20:30 96 Room Air 07/03/17 20:18 36.3 93 20 137/91 95 Physical Exam Eyes: bilateral eyes normal inspection, bilateral eyes PERRL, bilateral eyes EOMI ENT: normal ENT inspection, hearing grossly normal, TMs normal, pharynx normal Neck: supple, no adenopathy, thyroid normal, no JVD, no carotid bruits, trachea midline Respiratory/Chest: chest non-tender, lungs clear, normal breath sounds, no respiratory distress, no accessory muscle use Cardiovascular: regular rate, rhythm, no edema, no gallop, no JVD, + gallop/S4 Abdomen: normal bowel sounds, non tender, soft, no organomegaly, no pulsatile mass Extremities: normal range of motion, non-tender, normal inspection, no pedal edema, no calf tenderness Neurologic/Psychiatric: no motor/sensory deficits, normal mood/affect, oriented x 3 Skin: normal color, warm/dry, no rash Lymphatic: no adenopathy Laboratory Results Last 24 Hours Test 07/03/17 22:10 07/04/17 01:41 07/04/17 01:45 07/04/17 05:49 White Blood Count 6.01 K/uL Red Blood Count 4.91 M/uL Hemoglobin 14.5 g/dL Hematocrit 42.1 % Mean Corpuscular Volume 85.7 fL Mean Corpuscular Hemoglobin 29.5 pg Mean Corpuscular Hemoglobin Concent 34.4 g/dl Platelet Count 97 K/uL Mean Platelet Volume 10.7 fL Neutrophils (%) (Auto) 82.4 % Lymphocytes (%) (Auto) 8.5 % Monocytes (%) (Auto) 8.2 % Eosinophils (%) (Auto) 0.5 % Basophils (%) (Auto) 0.2 % Neutrophils # (Auto) 4.96 K/uL Lymphocytes # (Auto) 0.51 K/uL Monocytes # (Auto) 0.49 K/uL Eosinophils # (Auto) 0.03 K/uL Basophils # (Auto) 0.01 K/uL RDW Standard Deviation 42.6 fL RDW Coefficient of Variation 13.6 % Immature Granulocyte % (Auto) 0.2 % Immature Granulocyte # (Auto) 0.01 K/uL Platelet Estimate DECREASED Sodium Level 136 mmol/L Potassium Level 4.0 mmol/L Chloride Level 101 mmol/L Carbon Dioxide Level 20 mmol/L Anion Gap 15.0 mmol/L Blood Urea Nitrogen 21 mg/dl Creatinine 1.10 mg/dl Est Creatinine Clear Calc Drug Dose 62.5 ml/min Estimated GFR () 78.4 Estimated GFR (Non- 67.7 BUN/Creatinine Ratio 18.6 Random Glucose 92 mg/dl Lactic Acid Level 5.4 mmol/L Calcium Level 8.9 mg/dl Phosphorus Level 2.7 mg/dl Magnesium Level 2.3 mg/dl Total Bilirubin 0.7 mg/dl Aspartate Amino Transf (AST/SGOT) 84 U/L Alanine Aminotransferase (ALT/SGPT) 31 U/L Alkaline Phosphatase 95 U/L Troponin I < 0.015 ng/ml Pro-B-Type Natriuretic Peptide 97 pg/ml Total Protein 7.9 gm/dl Albumin 3.9 gm/dl Globulin 4.0 gm/dl Albumin/Globulin Ratio 1.0 Ethyl Alcohol mg/dL 35.0 mg/dl Urine Color YELLOW Urine Appearance CLEAR Urine pH 6.5 Urine Specific [place] 1.025 Urine Protein NEG Urine Glucose (UA) TRACE Urine Ketones TRACE Urine Occult Blood TRACE Urine Nitrite NEG Urine Bilirubin NEG Urine Urobilinogen NEG Urine Leukocyte Esterase SMALL Urine WBC (Auto) 1-5 /hpf Urine RBC (Auto) 0-4 /hpf Urine Hyaline Casts (Auto) 0 /lpf Urine Epithelial Cells (Auto) 5-10 /lpf Urine Bacteria (Auto) NEG Urine Opiates Screen NEG Urine Methadone, Qualitative NEG Urine Barbiturates NEG Urine Phencyclidine (PCP) Level NEG Ur Amphetamine/Methamphetamine NEG MDMA (Ecstasy) Screen NEG Urine Benzodiazepines Screen NEG Urine Cocaine Metabolite NEG Urine Marijuana (THC) NEG Bedside Lactic Acid Venous 2.76 mmol/L Prothrombin Time 10.0 SECONDS Prothromb Time International Ratio 0.9 Test 8/3/17 12:57 07/04/17 12:58 White Blood Count 5.00 K/uL Red Blood Count 4.90 M/uL Hemoglobin 14.8 g/dL Hematocrit 42.5 % Mean Corpuscular Volume 86.7 fL Mean Corpuscular Hemoglobin 30.2 pg Mean Corpuscular Hemoglobin Concent 34.8 g/dl RDW Standard Deviation 43.9 fL RDW Coefficient of Variation 13.8 % Platelet Count 68 K/uL Mean Platelet Volume 10.4 fL Assessment and Plan Assessment and Plan: Assessment 72 yo M with COPD and known alcohol abuse, who presents after 5 days of drinking again with shortness of breath. Plan Alcohol withdrawal - Librium / Ativan PRN - Seizure precautions - On telemetry Acute on Chronic COPD Exacerbation - Seems unlikely that this is truly a COPD exacerbation. More likely due to alcohol withdrawal and overall deconditioning. - Duonebs - D/C solumedrol and transition to prednisone - Smoking cessation consult is placed HTN - Hydralazine PRN titrated to SBP <160 - Patient is not currently on home meds for HTN. [facility]. BPH - Restart doxazosin Elevated lactate - Decreased on repeat draw - No evidence of infection at this time - Likely due to several day binge drinking Continued [facility] stay due to: multiple IV medications needed Discharge planning: home
[2017-07-04 13:54] LABS: CALCIUM 8.6 mg/dl (8.5-10.1); CREATININE 1.3 mg/dl (0.60-1.40); POTASSIUM 3.5 mmol/L (3.5-5.1)
[2017-07-04 14:03] LABS: BETA-HYDROXYBUTYRATE 3.27 mg/dL (0.2-2.81)
[2017-07-05] VITALS (12 sets, daily range): BP systolic 132–180; BP diastolic 83–114; PULSE 75–107; TEMP 36.4–36.9; O2SAT 94–98
[2017-07-05] MEDS: CHLORDIAZEPOXIDE 25MG Q8H DOSE PO SCH ×3 (06:32→21:51)
[2017-07-05] MEDS: HEPARIN SOD 5000 UNIT/0.5 ML CARP SQ SCH ×3 (06:32→21:51)
[2017-07-05] MEDS: NSS + 20MEQ KCL 1000ML 1,000 ML IV SCH (06:33)
[2017-07-05] MEDS: LORAZEPAM INJ 1 MG in SYRINGE 0.5 ML IV PRN ×4 (07:36→20:56)
[2017-07-05] MEDS: BUDESONIDE/FORMOTEROL FUMARATE 160/4.5 60 PUFFS/INHALER INH SCH ×2 (07:37→20:55)
[2017-07-05] MEDS: ALBUT/IPRATROP 3MG/0.5MG NEB 3 ML VIAL INH SCH ×2 (07:37→12:00)
[2017-07-05] MEDS: THIAMINE HCL INJ 100 MG in SYRINGE 9 ML IV SCH (08:38)
[2017-07-05] MEDS ORDERED: MULTI-VITAMIN INFUSION INJ 10 ML, THIAMINE HCL INJ 100 MG, FoLIC ACID INJ 1 MG in SODIU... IV SCH (09:00)
--- NOTE | 2017-07-05 11:15 | Family Medicine Progress Note ---
Progress Note Date of Service Jul 05, 2017. Subjective Pt evaluation today including: conversation w/ patient, physical exam, chart review, conversation w/ workforce consultant, review of inpatient medication list Pain: none PO Intake: clear liquids Voiding: no voiding problems anxiety and sweats improving shortness of breath unchanged lower abdominal pain improving very hungry does not want to go to rehab Constitutional: + fatigue, No fever, No chills Respiratory: No cough, No wheezing, No shortness of breath Cardiovascular: No chest pain, No palpitations Abdomen: No pain, No nausea, No vomiting, No diarrhea Psychiatric: + insomnia Skin: No rash, No itch, No new/changing skin lesions Medications Current Inpatient Medications Medications (Trade) Dose Ordered Sig/Frances Route Start Time Stop Time Status Last Admin Dose Admin Ioversol (Optiray 320) 100 ml UD PRN IV 07/04/17 00:15 07/08/17 00:14 Heparin Sodium (Porcine) (Heparin Sq 5000 Unit/0.5ml) 5,000 unit Q8 SQ 07/04/17 07:30 08/03/17 07:29 07/05/17 06:32 5,000 UNIT Potassium Chloride/Sodium Chloride 1,000 ml @ 75 mls/hr [id number] IV 07/04/17 04:30 07/05/17 19:26 07/05/17 06:33 75 MLS/HR Acetaminophen (Tylenol Tab) 650 mg Q4H PRN PO 07/04/17 02:45 08/03/17 02:44 Al Hydrox/Mg Hydrox/Simethicone (Maalox Max Susp) 15 ml Q4H PRN PO 07/04/17 02:45 08/03/17 02:44 Magnesium Hydroxide (Milk Of Magnesia Susp) 30 ml Q12H PRN PO 07/04/17 02:45 08/03/17 02:44 Ondansetron HCl (Zofran Inj) 4 mg Q6H PRN IV 07/04/17 02:45 08/03/17 02:44 Polyethylene (Miralax Powder Packet) 17 gm DAILY PRN PO 07/04/17 02:45 08/03/17 02:44 Multivitamins 10 ml/Thiamine HCl 100 mg/Folic Acid 1 mg/Sodium Chloride 1,011.2 ml @ 500 mls/ hr Q2H2M IV 07/05/17 09:00 08/04/17 08:59 07/05/17 09:12 500 MLS/HR Thiamine HCl 100 mg/Syringe 10 ml @ 2 mls/min Q24H IV 07/04/17 04:30 08/03/17 04:29 07/05/17 08:38 2 MLS/MIN Lorazepam (Ativan Tab) 1 mg ONE PRN PO 07/04/17 02:45 Lorazepam (Ativan Inj) PRN Dosing -Active Protocol Q1H PRN IV 07/04/17 02:45 08/03/17 02:44 07/04/17 04:48 4 MG Budesonide/ Formoterol Fumarate (Symbicort 160/ 4.5 Inh) 2 puffs BID INH 07/04/17 09:00 08/03/17 08:59 07/05/17 07:37 2 PUFFS Doxazosin Mesylate (Cardura Tab) 1 mg HS PO 07/04/17 21:00 08/03/17 20:59 07/04/17 20:52 1 MG Albuterol/ Ipratropium (Duoneb) 3 ml QIDR INH 07/04/17 08:00 08/03/17 07:59 07/05/17 07:37 3 ML Prednisone (PredniSONE TAB) 50 mg DAILY PO 07/04/17 09:00 07/09/17 08:59 07/05/17 07:37 50 MG Chlordiazepoxide (Librium Cap) 25 mg Q8H PO 07/05/17 06:00 07/05/17 22:01 07/05/17 06:32 25 MG Chlordiazepoxide (Librium Cap) 10 mg Q8H PO 07/06/17 06:00 07/06/17 22:01 Chlordiazepoxide (Librium Cap) 5 mg Q12H PO 07/07/17 08:00 07/07/17 20:01 Hydralazine HCl (HydrALAZINE INJ) 10 mg Q4H PRN IV. 07/04/17 05:45 08/03/17 05:44 07/04/17 08:55 10 MG Lorazepam 1 mg/ Syringe 1 ml @ 1 mls/min Q1H PRN IV 07/04/17 08:15 08/03/17 08:14 07/05/17 07:36 1 MLS/MIN Lorazepam 2 mg/ Syringe 2 ml @ 1 mls/min Q1H PRN IV 07/04/17 08:30 08/03/17 08:29 Lorazepam 3 mg/ Syringe 3 ml @ 1 mls/min Q1H PRN IV 07/04/17 08:30 08/03/17 08:29 Objective Vital Signs Date Time Temp Pulse Resp B/P (MAP) Pulse Ox O2 Delivery O2 Flow Rate FiO2 07/05/17 08:09 36.8 78 16 132/84 (100) 95 07/05/17 07:37 75 18 97 Room Air 07/05/17 04:00 Room Air 07/05/17 03:20 36.4 75 18 163/92 (115) 96 Room Air 07/05/17 00:02 36.7 85 18 163/90 (114) 96 Room Air 07/05/17 00:00 Room Air 07/04/17 20:00 Room Air 07/04/17 19:30 36.6 88 18 147/87 (107) 96 Room Air 07/04/17 19:15 89 18 94 Room Air 07/04/17 16:04 36.9 95 18 166/97 (120) 94 Room Air 07/04/17 16:00 96 Room Air 07/04/17 15:46 97 16 96 Room Air 07/04/17 14:04 36.5 96 18 137/84 (101) 96 Room Air 07/04/17 12:00 Room Air Physical Exam General Appearance: WD/WN, no apparent distress, + pertinent finding (appears to be sweaty ) Eyes: normal inspection, PERRL ENT: hearing grossly normal, pharynx normal, + pertinent finding (has some front teeth missing) Neck: no JVD, no carotid bruits, trachea midline Respiratory/Chest: no respiratory distress, no accessory muscle use, + wheezing (diffuse wheezing throughout) Cardiovascular: regular rate, rhythm, no edema, no murmur Abdomen: normal bowel sounds, non tender, soft Extremities: non-tender, no pedal edema, no calf tenderness Neurologic/Psychiatric: alert, oriented x 3 Laboratory Results Results Past 24 Hours Test 07/04/17 12:57 07/04/17 12:58 Range/Units Sodium Level 134 136-145 mmol/L Potassium Level 3.5 3.5-5.1 mmol/L Chloride Level 100 98-107 mmol/L Carbon Dioxide Level 22 21-32 mmol/L Anion Gap 12.0 3-11 mmol/L Blood Urea Nitrogen 14 7-18 mg/dl Creatinine 1.30 0.60-1.40 mg/dl Est Creatinine Clear Calc Drug Dose 52.9 ml/min Estimated GFR () 64.1 Estimated GFR (Non- 55.3 BUN/Creatinine Ratio 11.0 10-20 Random Glucose 303 70-99 mg/dl Calcium Level 8.6 8.5-10.1 mg/dl Beta-Hydroxybutyric Acid 3.27 0.2-2.81 mg/dL Procalcitonin 0.16 0-0.5 ng/ml White Blood Count 5.00 4.8-10.8 K/uL Red Blood Count 4.90 4.7-6.1 M/uL Hemoglobin 14.8 14.0-18.0 g/dL Hematocrit 42.5 42-52 % Mean Corpuscular Volume 86.7 80-100 fL Mean Corpuscular Hemoglobin 30.2 25-34 pg Mean Corpuscular Hemoglobin Concent 34.8 32-36 g/dl RDW Standard Deviation 43.9 36.4-46.3 fL RDW Coefficient of Variation 13.8 11.5-14.5 % Platelet Count 68 130-400 K/uL Mean Platelet Volume 10.4 7.4-10.4 fL Lactic Acid Level 4.0 0.4-2.0 mmol/L Assessment and Plan 72M here for EtOH withdrawal with SOB (COPD exac vs PNA vs anxiety) and oliguria SOB sec to COPD exac - pt non compliant with his COPD medications and is a lifetime smoker - Solumedrol given in ED, switched now to Prednisone 50 PO daily - continuing home Symbicort and Duoneb - O2 saturations 95-96 on room air - CT of chest showed mild emphysema, chronic atelectasis in left lobe, mild inflammatory/infectious change. Also, severe hepatic steatosis. - Smoking cessation consult ordered EtOH withdrawal - titrating Librium dose so as not to cause excessive drowsiness - pt has used inpatient rehab for his alcohol abuse in the past, goal is to have him do that here but pt has expressed disinterest. Hypertension, chronic - continuing home Clonidine - BPs were high and labile on admission 187-218/91-137. - will add lisinopril 10mg OD and titrate it up while cutting clonidine down BPH - dee in place - continuing home Doxazosin Depression/Anxiety - on zoloft at home 2 pills daily, unsure of dose - hasn't received it here yet. will get home dose. in the meantime start 50mgs daily and follow Diet - advance diet to regular diet Dispo - case management to talk to patient about rehab options - ordered PT/OT VTE ppx: Heparin Continued [facility] stay due to: home environment unsafe for pt Reviewed: Pt Seen/Exam by Me History feeling tired and exhausted hasn't been able to sleep much Constitutional: denies: fever Respiratory: negative: short of breath Cardiovascular: denies chest pain General Appearance: no apparent distress Respiratory: lungs clear, no respiratory distress Cardiovascular: regular rate, rhythm Neurologic/Psychiatric: alert, oriented x 3 Assessment/Plan Resident Physician Supervision Note: I was present with Dr. Fernandez in bedside. I verified the carson history and physical, reviewed labs and image studies, discussed the case with the resident and agree with the findings and care plan.
[2017-07-05] MEDS ORDERED: LISINOPRIL 10 MG TAB PO ONE (12:15)
[2017-07-05] MEDS: IPRATROPIUM BROMIDE/ALBUTEROL respimat INH INH SCH ×2 (18:19→20:55)
[2017-07-05] MEDS: DOXAZosin TAB 1 MG TAB PO SCH (20:56)
[2017-07-05] MEDS: LORAZEPAM 2 MG/ML 1 ML VIAL IV PRN (23:15)
[2017-07-05] MEDS: HydrALAZINE HCL 20 MG/ML VIAL IV. PRN (23:15)
[2017-07-06] VITALS (11 sets, daily range): BP systolic 132–166; BP diastolic 77–92; PULSE 71–87; TEMP 36.5–36.9; O2SAT 94–97
[2017-07-06] MEDS: LORAZEPAM INJ 1 MG in SYRINGE 0.5 ML IV PRN ×4 (01:36→22:01)
[2017-07-06] MEDS: CHLORDIAZEPOXIDE 10MG Q8H DOSE PO SCH ×3 (05:51→21:59)
[2017-07-06] MEDS: HEPARIN SOD 5000 UNIT/0.5 ML CARP SQ SCH ×3 (05:52→22:00)
[2017-07-06] MEDS: BUDESONIDE/FORMOTEROL FUMARATE 160/4.5 60 PUFFS/INHALER INH SCH ×2 (08:51→22:00)
[2017-07-06] MEDS: THIAMINE HCL INJ 100 MG in SYRINGE 9 ML IV SCH (08:52)
[2017-07-06] MEDS: IPRATROPIUM BROMIDE/ALBUTEROL respimat INH INH SCH ×4 (08:52→22:00)
[2017-07-06] MEDS ORDERED: SERTRALINE HCL 50 MG TAB PO SCH (09:00)
[2017-07-06] MEDS ORDERED: LISINOPRIL 10 MG TAB PO SCH (09:00)
--- NOTE | 2017-07-06 14:58 | Family Medicine Progress Note ---
Progress Note Date of Service Jul 06, 2017. Subjective Pt evaluation today including: conversation w/ patient, physical exam, chart review, lab review, review of studies, conversation w/ continuous improvement consultant, review of inpatient medication list Pain: none PO Intake: good Voiding: dee catheter in place Patient continues to have hot and cold sweats overnight Anxiety improved Friend went home to get home medication dosages Had 2 episodes of runny diarrhea, was unable to make it to the toilet Constitutional: + chills, + sweats, + fatigue, No fever Respiratory: No cough, No sputum, No shortness of breath Cardiovascular: No chest pain, No edema, No palpitations Abdomen: + diarrhea, No pain, No nausea, No vomiting Medications Current Inpatient Medications Medications (Trade) Dose Ordered Sig/Frances Route Start Time Stop Time Status Last Admin Dose Admin Ioversol (Optiray 320) 100 ml UD PRN IV 07/04/17 00:15 07/08/17 00:14 Heparin Sodium (Porcine) (Heparin Sq 5000 Unit/0.5ml) 5,000 unit Q8 SQ 07/04/17 07:30 08/03/17 07:29 07/05/17 14:09 5,000 UNIT Acetaminophen (Tylenol Tab) 650 mg Q4H PRN PO 07/04/17 02:45 08/03/17 02:44 Al Hydrox/Mg Hydrox/Simethicone (Maalox Max Susp) 15 ml Q4H PRN PO 07/04/17 02:45 08/03/17 02:44 Magnesium Hydroxide (Milk Of Magnesia Susp) 30 ml Q12H PRN PO 07/04/17 02:45 08/03/17 02:44 Ondansetron HCl (Zofran Inj) 4 mg Q6H PRN IV 07/04/17 02:45 08/03/17 02:44 Polyethylene (Miralax Powder Packet) 17 gm DAILY PRN PO 07/04/17 02:45 08/03/17 02:44 Thiamine HCl 100 mg/Syringe 10 ml @ 2 mls/min Q24H IV 07/04/17 04:30 08/03/17 04:29 07/06/17 08:52 2 MLS/MIN Lorazepam (Ativan Tab) 1 mg ONE PRN PO 07/04/17 02:45 Lorazepam (Ativan Inj) PRN Dosing -Active Protocol Q1H PRN IV 07/04/17 02:45 08/03/17 02:44 07/05/17 23:15 1 MG Budesonide/ Formoterol Fumarate (Symbicort 160/ 4.5 Inh) 2 puffs BID INH 07/04/17 09:00 08/03/17 08:59 07/06/17 08:51 2 PUFFS Albuterol/ Ipratropium (Duoneb) 3 ml QIDR INH 07/04/17 08:00 08/03/17 07:59 07/05/17 07:37 3 ML Prednisone (PredniSONE TAB) 50 mg DAILY PO 07/04/17 09:00 07/09/17 08:59 07/06/17 08:52 50 MG Chlordiazepoxide (Librium Cap) 10 mg Q8H PO 07/06/17 06:00 07/06/17 22:01 07/06/17 05:51 10 MG Chlordiazepoxide (Librium Cap) 5 mg Q12H PO 07/07/17 08:00 07/07/17 20:01 Hydralazine HCl (HydrALAZINE INJ) 10 mg Q4H PRN IV. 07/04/17 05:45 08/03/17 05:44 07/05/17 23:15 10 MG Lorazepam 1 mg/ Syringe 1 ml @ 1 mls/min Q1H PRN IV 07/04/17 08:15 08/03/17 08:14 07/06/17 09:26 1 MLS/MIN Lorazepam 2 mg/ Syringe 2 ml @ 1 mls/min Q1H PRN IV 07/04/17 08:30 08/03/17 08:29 07/05/17 16:19 1 MLS/MIN Lorazepam 3 mg/ Syringe 3 ml @ 1 mls/min Q1H PRN IV 07/04/17 08:30 08/03/17 08:29 Albuterol/ Ipratropium (Combivent Respimat Inh) 1 puffs QID INH 07/05/17 17:00 08/04/17 16:59 07/06/17 08:52 1 PUFFS Doxazosin Mesylate (Cardura Tab) 4 mg HS PO 07/06/17 21:00 08/03/17 20:59 Lisinopril (Zestril Tab) 20 mg QAM PO 07/07/17 09:00 08/05/17 08:59 Sertraline HCl (Zoloft Tab) 100 mg BID PO 07/06/17 21:00 08/05/17 08:59 Mirtazapine (Remeron Tab) 30 mg HS PO 07/06/17 21:00 08/05/17 20:59 Objective Vital Signs Date Time Temp Pulse Resp B/P (MAP) Pulse Ox O2 Delivery O2 Flow Rate FiO2 07/06/17 12:00 96 Room Air 07/06/17 11:36 36.9 79 18 166/84 (111) 96 Room Air 07/06/17 08:00 95 Room Air 07/06/17 07:21 36.5 71 18 145/84 (104) 96 Room Air 07/06/17 05:00 36.7 73 16 147/88 (107) 97 Room Air 07/06/17 04:33 36.7 79 18 159/92 (114) 97 Room Air 07/06/17 04:00 Room Air 07/06/17 01:00 36.7 85 16 154/91 (112) 97 Room Air 07/06/17 00:00 Room Air 07/05/17 23:00 36.7 75 18 180/114 (136) 97 Room Air 07/05/17 20:00 Room Air 07/05/17 19:48 36.5 107 18 143/84 (103) 97 Room Air 07/05/17 16:00 96 Room Air 07/05/17 15:38 36.8 98 20 134/83 (100) 94 Room Air Physical Exam General Appearance: WD/WN, no apparent distress, + pertinent finding (appears tired) ENT: hearing grossly normal, pharynx normal Neck: supple, no JVD, no carotid bruits Respiratory/Chest: chest non-tender, no respiratory distress, no accessory muscle use, + wheezing (mild bilateral wheeze) Cardiovascular: regular rate, rhythm, no JVD, no murmur Abdomen: normal bowel sounds, non tender, soft Extremities: non-tender, no pedal edema, no calf tenderness Neurologic/Psychiatric: alert, normal mood/affect, oriented x 3 Assessment and Plan 72M here for EtOH withdrawal with SOB (COPD exac vs PNA vs anxiety) and oliguria due to noncompliance with home meds SOB sec to COPD exac - pt non compliant with his COPD medications and is a lifetime smoker - Solumedrol given in ED, switched now to Prednisone 50 PO daily - continuing home Symbicort and Duoneb - O2 saturations 95-96 on room air - CT of chest showed mild emphysema, chronic atelectasis in left lobe, mild inflammatory/infectious change. Also, severe hepatic steatosis. - Smoking cessation consult ordered EtOH withdrawal - titrating Librium dose so as not to cause excessive drowsiness - pt has used inpatient rehab for his alcohol abuse in the past, goal is to have him do that here but pt has expressed disinterest. Hypertension, chronic - stopped home clonidine - switched to lisinopril 20mg OD BPH - dee in place - continuing home Doxazosin 4mg daily qhs - will attempt a voiding trial tomorrow Depression/Anxiety - on zoloft and being given 100mg bid - Remeron 30mg QHS Diet - advance diet to regular diet Dispo - case management to talk to patient about rehab options - ordered PT/OT VTE ppx: Heparin Resident Physician Supervision Note: I interviewed and examined the patient. Discussed with Dr. Fernandez and agree with findings and plan as documented in the note. Any exceptions or clarifications are listed here: None Documented By: Rosas Licea diarrhea. notes happened a few times in the past few weeks - explosive and out of the blue. not constant or recurrent. not clearly tied to eating, but also doesn't recall waking him from sleep. breathing better. vitals noted nad breathing unlabored abd soft nd nt (presumed) COPD exacerbation -seems improving, continue current management for now, anticipate home on anticholinergic EtOH withdrawal -improving, continue current management diarrhea -check for Cdiff -?follow for how closely tied to eating -- ??pancreatic insufficiency from EtOH -if Cdiff negative and not clearly tied to eating, either consider fecal fat or outpt GI referral BPH w urinary retention -friend brought in home meds - he's actually on 4mg doxazosin HS - will increase to home dosing DVT proph - heparin SQ Continued [facility] stay due to: voiding difficulties, home environment unsafe for pt
[2017-07-06] MEDS ORDERED: METRONIDAZOLE 500 MG TAB PO ONE (21:06)
--- NOTE | 2017-07-06 21:09 | Progress Note ---
Progress Note Date of Service Jul 06, 2017. Progress Note Notified by nursing of C.diff positive status at 21:00. Patient otherwise stable, without reported abdominal tenderness, WBC is < 15, and serum albumin > 3. Patient categorized as mild-moderate C.diff infection. Patient started on Metronidazole 500 TID PO x 10 days
[2017-07-06] MEDS: MIRTAZAPINE TAB 15 MG TAB PO SCH (21:40)
[2017-07-06] MEDS: SERTRALINE HCL 100 MG TAB PO SCH (21:40)
[2017-07-06] MEDS: DOXAZosin MESYLATE TAB 2 MG TAB PO SCH (21:41)
[2017-07-07] VITALS (8 sets, daily range): BP systolic 105–135; BP diastolic 66–81; PULSE 68–89; TEMP 36.3–37.1; O2SAT 93–96
[2017-07-07] MEDS: THIAMINE HCL INJ 100 MG in SYRINGE 9 ML IV SCH (04:53)
[2017-07-07] MEDS: HEPARIN SOD 5000 UNIT/0.5 ML CARP SQ SCH ×3 (05:56→21:09)
[2017-07-07 06:38] LABS: HEMATOCRIT 37.4 % (42-52); MEAN CELL VOLUME 86.6 fL (80-100); MEAN CORPUSCULAR HEMOGLOBIN 29.2 pg (25-34); MEAN CORPUSCULAR HGB CONC 33.7 g/dl (32-36); RED BLOOD COUNT 4.32 M/uL (4.7-6.1); WHITE BLOOD COUNT 7.67 K/uL (4.8-10.8)
[2017-07-07 07:14] LABS: BUN/CREATININE RATIO 14.6 (10-20); CALCIUM 8.6 mg/dl (8.5-10.1); CREATININE 0.94 mg/dl (0.60-1.40)
[2017-07-07 07:26] LABS: MEAN PLATELET VOLUME 11.9 fL (7.4-10.4); PLATELET COUNT 71 K/uL (130-400)
[2017-07-07] MEDS: ALBUT/IPRATROP 3MG/0.5MG NEB 3 ML VIAL INH SCH ×5 (08:00→16:00)
[2017-07-07] MEDS: BUDESONIDE/FORMOTEROL FUMARATE 160/4.5 60 PUFFS/INHALER INH SCH ×2 (10:23→20:51)
[2017-07-07] MEDS: CHLORDIAZEPOXIDE 5MG Q12H DOSE PO SCH ×2 (10:23→21:08)
[2017-07-07] MEDS: IPRATROPIUM BROMIDE/ALBUTEROL respimat INH INH SCH ×4 (10:23→20:51)
[2017-07-07] MEDS: METRONIDAZOLE 500 MG TAB PO SCH ×3 (10:24→20:52)
[2017-07-07] MEDS: SERTRALINE HCL 100 MG TAB PO SCH ×2 (10:24→20:53)
--- NOTE | 2017-07-07 11:29 | Family Medicine Progress Note ---
Progress Note Date of Service Jul 07, 2017. Subjective Pt evaluation today including: conversation w/ patient, physical exam, chart review, lab review, conversation w/ career development consultant PO Intake: good Voiding: dee catheter in place Patient had cdiff return as positive and was started on metronidazole Diarrhea has slowed down (no bm's overnight) Had some abdominal cramping overnight No fevers, night sweats or chills overnight Hot and cold sweats have subsided and anxiety has improved Feels very tired and wants to rest Additional Comments: please see above note for ROS Medications Current Inpatient Medications Medications (Trade) Dose Ordered Sig/Frances Route Start Time Stop Time Status Last Admin Dose Admin Ioversol (Optiray 320) 100 ml UD PRN IV 07/04/17 00:15 07/08/17 00:14 Heparin Sodium (Porcine) (Heparin Sq 5000 Unit/0.5ml) 5,000 unit Q8 SQ 07/04/17 07:30 08/03/17 07:29 07/05/17 14:09 5,000 UNIT Acetaminophen (Tylenol Tab) 650 mg Q4H PRN PO 07/04/17 02:45 08/03/17 02:44 Al Hydrox/Mg Hydrox/Simethicone (Maalox Max Susp) 15 ml Q4H PRN PO 07/04/17 02:45 08/03/17 02:44 Magnesium Hydroxide (Milk Of Magnesia Susp) 30 ml Q12H PRN PO 07/04/17 02:45 08/03/17 02:44 Ondansetron HCl (Zofran Inj) 4 mg Q6H PRN IV 07/04/17 02:45 08/03/17 02:44 Polyethylene (Miralax Powder Packet) 17 gm DAILY PRN PO 07/04/17 02:45 08/03/17 02:44 Thiamine HCl 100 mg/Syringe 10 ml @ 2 mls/min Q24H IV 07/04/17 04:30 08/03/17 04:29 07/07/17 04:53 2 MLS/MIN Lorazepam (Ativan Tab) 1 mg ONE PRN PO 07/04/17 02:45 Lorazepam (Ativan Inj) PRN Dosing -Active Protocol Q1H PRN IV 07/04/17 02:45 08/03/17 02:44 07/05/17 23:15 1 MG Budesonide/ Formoterol Fumarate (Symbicort 160/ 4.5 Inh) 2 puffs BID INH 07/04/17 09:00 08/03/17 08:59 07/07/17 10:23 2 PUFFS Albuterol/ Ipratropium (Duoneb) 3 ml QIDR INH 07/04/17 08:00 08/03/17 07:59 07/05/17 07:37 3 ML Prednisone (PredniSONE TAB) 50 mg DAILY PO 07/04/17 09:00 07/09/17 08:59 07/06/17 08:52 50 MG Chlordiazepoxide (Librium Cap) 5 mg Q12H PO 07/07/17 08:00 07/07/17 20:01 07/07/17 10:23 5 MG Hydralazine HCl (HydrALAZINE INJ) 10 mg Q4H PRN IV. 07/04/17 05:45 08/03/17 05:44 07/05/17 23:15 10 MG Lorazepam 1 mg/ Syringe 1 ml @ 1 mls/min Q1H PRN IV 07/04/17 08:15 08/03/17 08:14 07/06/17 22:01 1 MLS/MIN Lorazepam 2 mg/ Syringe 2 ml @ 1 mls/min Q1H PRN IV 07/04/17 08:30 08/03/17 08:29 07/05/17 16:19 1 MLS/MIN Lorazepam 3 mg/ Syringe 3 ml @ 1 mls/min Q1H PRN IV 07/04/17 08:30 08/03/17 08:29 Albuterol/ Ipratropium (Combivent Respimat Inh) 1 puffs QID INH 07/05/17 17:00 08/04/17 16:59 07/07/17 10:23 1 PUFFS Doxazosin Mesylate (Cardura Tab) 4 mg HS PO 07/06/17 21:00 08/03/17 20:59 07/06/17 21:41 4 MG Lisinopril (Zestril Tab) 20 mg QAM PO 07/07/17 09:00 08/05/17 08:59 Sertraline HCl (Zoloft Tab) 100 mg BID PO 07/06/17 21:00 08/05/17 08:59 07/07/17 10:24 100 MG Mirtazapine (Remeron Tab) 30 mg HS PO 07/06/17 21:00 08/05/17 20:59 07/06/17 21:40 30 MG Metronidazole (Flagyl Tab) 500 mg TID PO 07/07/17 09:00 07/17/17 08:59 07/07/17 10:24 500 MG Objective Vital Signs Date Time Temp Pulse Resp B/P (MAP) Pulse Ox O2 Delivery O2 Flow Rate FiO2 07/07/17 07:31 36.3 68 18 132/79 (96) 95 Room Air 07/07/17 04:26 36.6 78 18 132/81 (98) 95 Room Air 07/07/17 04:00 Room Air 07/07/17 00:00 Room Air 07/06/17 23:25 36.7 81 20 132/77 (95) 95 Room Air 07/06/17 20:00 Room Air 07/06/17 19:22 36.6 81 20 163/85 (111) 95 Room Air 07/06/17 16:00 94 Room Air 07/06/17 15:40 36.7 87 18 138/88 (105) 95 Room Air 07/06/17 12:00 96 Room Air 07/06/17 11:36 36.9 79 18 166/84 (111) 96 Room Air Physical Exam General Appearance: WD/WN, no apparent distress, + pertinent finding (patient appears tired) Neck: supple, no JVD, no carotid bruits, trachea midline Respiratory/Chest: no respiratory distress, no accessory muscle use, + crackles (mild crackles at the bases) Cardiovascular: regular rate, rhythm, no edema, no murmur Abdomen: normal bowel sounds, soft, + tenderness (mild tenderness throughout) Extremities: non-tender, no calf tenderness, normal capillary refill Neurologic/Psychiatric: alert, normal mood/affect, oriented x 3 Skin: normal color, warm/dry, no rash Assessment and Plan 72M here for EtOH withdrawal with SOB (COPD exac vs PNA vs anxiety) and oliguria due to noncompliance with home meds Was found to be c.diff positive and was started on Metronidazole tid for 10 days. Seems to be improving from his withdrawal symptoms. Will try to d/c dee and have a voiding trial today. Plan to discharge tomorrow with steroid taper. SOB sec to COPD exac - pt non compliant with his COPD medications and is a lifetime smoker - Solumedrol given in ED, now on 50mg prednisone PO, will taper today likely to 25 - continuing home Symbicort and Duoneb - O2 saturations 95-96 on room air - CT of chest showed mild emphysema, chronic atelectasis in left lobe, mild inflammatory/infectious change. Also, severe hepatic steatosis. - Smoking cessation consult ordered Hypokalemia - potassium was 3 - give 40meq of potassium once and 20 daily EtOH withdrawal - titrating Librium dose so as not to cause excessive drowsiness - pt has used inpatient rehab for his alcohol abuse in the past, goal is to have him do that here but pt has expressed disinterest. C.diff - metronidazole tid for 10 days Hypertension, chronic - stopped home clonidine - switched to lisinopril 20mg OD BPH - will d/c dee and have a voiding trial - continuing home Doxazosin 4mg daily qhs Depression/Anxiety - on zoloft and being given 100mg bid - Remeron 30mg QHS Diet - advance diet to regular diet Dispo - case management talked to patient about rehab options but patient does not want to go to rehab - ordered PT/OT Resident Physician Supervision Note: I interviewed and examined the patient. Discussed with Dr. Fernandez and agree with findings and plan as documented in the note. Any exceptions or clarifications are listed here: None Documented By: Rosas Licea feeling better diarrhea slowing son updated w pt's permission and appreciation. all other ROS otherwise negative except for as above vitals noted nad breathing unlabored no pallor or icterus COPD exac - improving Cdiff colitis - improving. flagyl. discussed potential of disulfiram like reaction w pt - he's hopeful this will help w EtOH abuse BPH/urinary retention - dee now out, voiding, continue to follow EtOH withdrawal - improving possibly home 07/08 Continued [facility] stay due to: home environment unsafe for pt
[2017-07-07] MEDS ORDERED: NURSING VERBAL MED ORDER ONE (11:45)
[2017-07-07] MEDS: LISINOPRIL 20 MG TAB PO SCH (11:50)
[2017-07-07] MEDS ORDERED: POTASSIUM CHLORIDE 20 MEQ TABCR PO ONE (12:00)
[2017-07-07 18:19] LABS: BUN/CREATININE RATIO 11.2 (10-20); CALCIUM 8.6 mg/dl (8.5-10.1); CREATININE 1.4 mg/dl (0.60-1.40); POTASSIUM 3.6 mmol/L (3.5-5.1)
[2017-07-07] MEDS: DOXAZosin MESYLATE TAB 2 MG TAB PO SCH (20:54)
[2017-07-07] MEDS: MIRTAZAPINE TAB 15 MG TAB PO SCH (20:55)
[2017-07-08] VITALS (7 sets, daily range): BP systolic 116–197; BP diastolic 65–110; PULSE 69–89; TEMP 36.2–37; O2SAT 93–97
[2017-07-08] MEDS: HydrALAZINE HCL 20 MG/ML VIAL IV. PRN (03:33)
[2017-07-08] MEDS: THIAMINE HCL INJ 100 MG in SYRINGE 9 ML IV SCH (04:43)
[2017-07-08] MEDS: HEPARIN SOD 5000 UNIT/0.5 ML CARP SQ SCH ×3 (06:00→22:00)
[2017-07-08 07:06] LABS: HEMATOCRIT 36.1 % (42-52); MEAN CELL VOLUME 88.5 fL (80-100); MEAN CORPUSCULAR HEMOGLOBIN 29.7 pg (25-34); MEAN CORPUSCULAR HGB CONC 33.5 g/dl (32-36); RED BLOOD COUNT 4.08 M/uL (4.7-6.1); WHITE BLOOD COUNT 9.96 K/uL (4.8-10.8)
[2017-07-08 07:38] LABS: MEAN PLATELET VOLUME 10.5 fL (7.4-10.4); PLATELET COUNT 92 K/uL (130-400)
[2017-07-08] MEDS: ALBUT/IPRATROP 3MG/0.5MG NEB 3 ML VIAL INH SCH ×2 (08:00→12:00)
[2017-07-08] MEDS: METRONIDAZOLE 500 MG TAB PO SCH ×3 (08:40→21:00)
[2017-07-08] MEDS: LISINOPRIL 20 MG TAB PO SCH (08:40)
[2017-07-08] MEDS: POTASSIUM CHLORIDE 20 MEQ TABCR PO SCH (08:41)
[2017-07-08] MEDS: IPRATROPIUM BROMIDE/ALBUTEROL respimat INH INH SCH ×4 (08:41→20:58)
[2017-07-08] MEDS: SERTRALINE HCL 100 MG TAB PO SCH ×2 (08:41→21:02)
[2017-07-08] MEDS: BUDESONIDE/FORMOTEROL FUMARATE 160/4.5 60 PUFFS/INHALER INH SCH ×2 (08:41→20:59)
--- NOTE | 2017-07-08 20:06 | Family Medicine Progress Note ---
Progress Note Date of Service Jul 08, 2017. Subjective Pt evaluation today including: conversation w/ patient, physical exam, chart review, lab review Pt resting comfortably in bed today. Discussed with pt at length options for going home. Pt expressed that he still does not have his strength yet. Discussed risk of further adverse events like infections should he remain in the hospital too long. Discussed with pt the option of inpatient rehab, but pt refused. Pt states he will go home. Pt denies pain anywhere, states his stool is loose, but that the diarrhea is improving. Pt is seen ambulating to the toilet during the interview. Constitutional: + weakness, No fever, No chills, No sweats Respiratory: No cough, No sputum, No shortness of breath Cardiovascular: No chest pain, No edema, No palpitations Abdomen: + diarrhea, No pain, No nausea, No vomiting, No constipation Objective Physical Exam General Appearance: WD/WN, no apparent distress, + cachetic Eyes: normal inspection, PERRL, EOMI Respiratory/Chest: lungs clear, normal breath sounds, no respiratory distress, no accessory muscle use Cardiovascular: regular rate, rhythm, no edema, no gallop, no JVD, no murmur Abdomen: normal bowel sounds, non tender, soft, no organomegaly Extremities: normal range of motion, normal inspection, no pedal edema Neurologic/Psychiatric: alert, normal mood/affect, oriented x 3 Assessment and Plan 72M here for EtOH withdrawal with SOB (COPD exac vs PNA vs anxiety) and oliguria due to noncompliance with home meds SOB sec to COPD exac - resolved - pt non compliant with his COPD medications and is a lifetime smoker - Solumedrol given in ED, now on 50mg prednisone PO, tapering to 25 - continuing home Symbicort and Duoneb - O2 saturations 95-96 on room air - CT of chest showed mild emphysema, chronic atelectasis in left lobe, mild inflammatory/infectious change. Also, severe hepatic steatosis. - Smoking cessation consult ordered Hypokalemia - improving - potassium was 3 - gave 40meq of potassium once and 20 daily EtOH withdrawal - improving - titrated Librium dose so as not to cause excessive drowsiness. Pt is no longer requiring PRN doses for anxiety. - Have discussed at length the option of transferring to inpatient rehab, pt declined. C.diff - pt complained of diarrhea on Saturday, culture came back + for C. diff. - Metronidazole administered, will continue dose for 2 weeks post DC Hypertension, chronic - stopped home clonidine - switched to lisinopril 20mg OD BPH - Janis dee pt voiding well - continuing home Doxazosin 4mg daily qhs Depression/Anxiety - on zoloft and being given 100mg bid - Remeron 30mg QHS Diet - regular diet Dispo - case management talked to patient about rehab options but patient does not want to go to rehab. Will go home - ordered PT/OT Resident Physician Supervision Note: I interviewed and examined the patient. Discussed with Dr. Robles and agree with findings and plan as documented in the note. Any exceptions or clarifications are listed here: None Documented By: Rosas Licea diarrhea improving. weakness improving. doesn't want to think about home vs rehab. vitals noted nad breathing unlabored no pallor or icterus cdiff colitis - improving - flagyl EtOH withdrawal - resolved COPD / exacerbation - improving encouraged activity, PT/OT -- discussed risk of nosocomial infection and deconditioning -- tomorrow either home or [facility] Continued [facility] stay due to: home environment unsafe for pt Discharge planning: home
[2017-07-08] MEDS: DOXAZosin MESYLATE TAB 2 MG TAB PO SCH (21:00)
[2017-07-08] MEDS: MIRTAZAPINE TAB 15 MG TAB PO SCH (21:01)
[2017-07-08] MEDS: LORAZEPAM INJ 1 MG in SYRINGE 0.5 ML IV PRN (23:51)
[2017-07-09] VITALS (12 sets, daily range): BP systolic 125–169; BP diastolic 71–85; PULSE 72–101; TEMP 36.4–37; O2SAT 92–98
[2017-07-09] MEDS: THIAMINE HCL INJ 100 MG in SYRINGE 9 ML IV SCH (04:52)
[2017-07-09] MEDS: HEPARIN SOD 5000 UNIT/0.5 ML CARP SQ SCH ×3 (06:00→21:53)
[2017-07-09] MEDS: SERTRALINE HCL 100 MG TAB PO SCH ×2 (07:54→20:48)
[2017-07-09] MEDS: LISINOPRIL 20 MG TAB PO SCH (07:55)
[2017-07-09] MEDS: METRONIDAZOLE 500 MG TAB PO SCH ×3 (07:55→20:48)
[2017-07-09] MEDS: BUDESONIDE/FORMOTEROL FUMARATE 160/4.5 60 PUFFS/INHALER INH SCH ×2 (07:57→20:45)
[2017-07-09] MEDS: IPRATROPIUM BROMIDE/ALBUTEROL respimat INH INH SCH ×4 (07:57→20:45)
[2017-07-09] MEDS: POTASSIUM CHLORIDE 20 MEQ TABCR PO SCH (07:57)
--- NOTE | 2017-07-09 19:15 | Family Medicine Progress Note ---
Progress Note Date of Service Jul 09, 2017. Subjective Pt evaluation today including: conversation w/ patient, physical exam, chart review, lab review Voiding: no voiding problems Pt resting comfortably in bed, complaining of not being able to get enough rest at the hospital. Discussed at length with pt the need to rest at home or at [facility], so as to prevent complications from in hospital infections. Pt agreed that he would be able to go to [facility] tomorrow. Pt irritable but cooperative. Constitutional: No fever, No chills Respiratory: No cough, No sputum, No shortness of breath Cardiovascular: No chest pain, No orthopnea Abdomen: No pain, No nausea Male : No dysuria, No incontinence Objective Physical Exam General Appearance: WD/WN, no apparent distress, + thin, + pertinent finding ( irritable.) Eyes: normal inspection, PERRL, EOMI Respiratory/Chest: lungs clear, normal breath sounds, no respiratory distress Cardiovascular: regular rate, rhythm, no edema, no JVD Abdomen: normal bowel sounds, non tender, soft Extremities: normal range of motion, non-tender, normal inspection, no pedal edema Neurologic/Psychiatric: no motor/sensory deficits, alert, oriented x 3 Assessment and Plan 72M here for EtOH withdrawal with SOB (COPD exac vs PNA vs anxiety) and oliguria due to noncompliance with home meds SOB sec to COPD exac - resolved - pt non compliant with his COPD medications and is a lifetime smoker - Solumedrol given in ED, now on 50mg prednisone PO, tapering to 25 - continuing home Symbicort and Duoneb - O2 saturations 95-96 on room air - CT of chest showed mild emphysema, chronic atelectasis in left lobe, mild inflammatory/infectious change. Also, severe hepatic steatosis. - Smoking cessation consult ordered Hypokalemia - improving - potassium was 3 - gave 40meq of potassium once and 20 daily EtOH withdrawal - improving - titrated Librium dose so as not to cause excessive drowsiness. Pt is no longer requiring PRN doses for anxiety. - Have discussed at length the option of transferring to inpatient rehab, pt declined. C.diff - pt complained of diarrhea on Saturday, culture came back + for C. diff. - Metronidazole administered, will continue dose for 2 weeks post DC Hypertension, chronic - stopped home clonidine - switched to lisinopril 20mg OD BPH - DCed dee, pt voiding well - continuing home Doxazosin 4mg daily qhs Depression/Anxiety - on zoloft and being given 100mg bid - Remeron 30mg QHS Diet - regular diet Dispo - will go to [facility] tomorrow. Resident Physician Supervision Note: I interviewed and examined the patient. Discussed with Dr. Robles and agree with findings and plan as documented in the note. Any exceptions or clarifications are listed here: None Documented By: Rosas Licea diarrhea improving breathing better. vitals noted nad breathing unlabored no pallor or icterus Cdiff - flagyl COPD exac - improving etoh withdrawal - improved weakness/deconditioning - [facility] tomorrow Continued [facility] stay due to: home environment unsafe for pt Discharge planning: rehab hospital Resident Tracking Resident Involvement: Resident Care Provided Care Provided: Adult Hospital Medicine
[2017-07-09] MEDS: DOXAZosin MESYLATE TAB 2 MG TAB PO SCH (20:47)
[2017-07-09] MEDS: MIRTAZAPINE TAB 15 MG TAB PO SCH (20:48)
[2017-07-09] MEDS: LORAZEPAM INJ 1 MG in SYRINGE 0.5 ML IV PRN (21:46)
[2017-07-10] VITALS (7 sets, daily range): BP systolic 144–183; BP diastolic 70–100; PULSE 73–89; TEMP 36.3–36.5; O2SAT 93–97
[2017-07-10] MEDS: HydrALAZINE HCL 20 MG/ML VIAL IV. PRN (03:59)
[2017-07-10] MEDS: THIAMINE HCL INJ 100 MG in SYRINGE 9 ML IV SCH (04:01)
[2017-07-10] MEDS: HEPARIN SOD 5000 UNIT/0.5 ML CARP SQ SCH ×2 (04:06→14:00)
--- NOTE | 2017-07-10 06:33 | Discharge Instructions ---
Discharge Instructions Date of Service Jul 10, 2017. Admission Reason for Admission: Alcohol Withdrawl, Copd Exacerbation Discharge Discharge Diagnosis / Problem: Alcohol Withdrawal, COPD Exacerbation Discharge Goals Goal(s): Decrease discomfort, Improve function, Increase independence, Improve disease control, Learn about illness, Therapeutic intervention Activity Recommendations Activity Limitations: as noted below Lifting Limitations: gradually increase as tolerated Shower/Bathe: no limitations . Instructions / Follow-Up Instructions / Follow-Up COPD - wasn't taking meds at home, therefore under treated. - Exacerbation resolving - Meds as ordered should suffice to finish exac treatment - Please encourage compliance with inhalers after DC from rehab. C diff - active infection, currently improving with treatment on metronidazole - treat as above, follow closely after 1st week of cessation from antibiotics Alcohol withdrawal - resolved - encourage sobriety after DC from rehab Urinary retention - wasn't taking meds at home, therefore under treated - continue doxazosin - having presumably prostate retated LUTS - may need straight q6 PRN urinary retention - if an ongoing issue consider dee or urology eval Current Hospital Diet Patient's current hospital diet: Regular Diet Discharge Diet Recommended Diet: Regular Diet Pending Studies Studies pending at discharge: no Medical Emergencies . Who to Call and When: Medical Emergencies: If at any time you feel your situation is an emergency, please call 911 immediately. . Non-Emergent Contact Non-Emergency issues call your: Primary Care Provider Call Non-Emergent contact if: you have any medication questions . Past History Medical & Surgical History: (1) COPD exacerbation (2) Alcohol withdrawal . "Provider Documentation" section prepared by Nay Robles. . VTE Core Measure Inpt VTE Proph given/why not?: Enoxaparin (Lovenox)SQ
[2017-07-10] MEDS ORDERED: MTR500 PO ×2 (06:40→10:53)
[2017-07-10] MEDS ORDERED: LSN20 PO ×2 (06:40→10:53)
--- NOTE | 2017-07-10 06:43 | Discharge Summary ---
Discharge Summary Date of Service Jul 10, 2017. (Nay Robles M.D.) Discharge Summary Admission Date: Jul 04, 2017 at 02:41 Discharge Date: Jul 10, 2017 Discharge Disposition: Rehab Principal Diagnosis: Alcohol withdrawal, COPD exacerbation (Nay Robles M.D.) Medication Reconciliation New Medications: Lisinopril (Lisinopril) 20 Mg Tab 20 MG PO QAM for 30 Days, #30 TAB 3 Refills Metronidazole (Metronidazole) 500 Mg Tab 500 MG PO TID for 10 Days, #30 TAB 0 Refills Continued Medications: Budesonide/Formoterol Fumarate (Symbicort 160/4.5 Inhaler ) Aero 2 PUFFS INH BID, INHALER PT STATES "DOESN'T TAKE REGULARLY". Doxazosin Mesylate (Doxazosin Mesylate) 1 Mg Tab 1 MG PO HS Sertraline (Zoloft) Unknown Strength Tab 2 TABS PO DAILY, TAB Discharge Exam Pt complains of dribbling when urinating and bladder fullness but denies dysuria. Pt worried about [facility] ability to take care of his bladder issues should he retain urine again. Pt refuses to urinate into bucket per nurse. Pt also complains of shortness of breath when he gets up to go to the bathroom, but denies chest pain or dizziness. No syncope reported. Review of Systems: Constitutional: + weakness, No fever, No chills, No sweats Respiratory: + shortness of breath, No cough, No sputum, No dyspnea at rest Cardiovascular: No chest pain, No orthopnea, No edema Abdomen: No pain, No nausea, No vomiting, No diarrhea Musculoskeletal: No joint pain, No muscle pain, No swelling Genitourinary - Male: + urinary frequency, + urinary retention, No hematuria , No dysuria Neurologic: No paralysis, No balance problems Physical Exam: General Appearance: WD/WN, no apparent distress Eyes: normal inspection, PERRL, EOMI Respiratory/Chest: chest non-tender, lungs clear, no respiratory distress, no accessory muscle use Cardiovascular: regular rate, rhythm, no edema, no murmur, normal peripheral pulses Abdomen / GI: normal bowel sounds, non tender, soft Extremities: normal inspection, no pedal edema, normal range of motion Neurologic/Psychiatric: alert, normal mood/affect, oriented x 3 Skin: normal color, warm/dry, no rash (Nay Robles M.D.) Hospital Course 72M here for EtOH withdrawal with SOB (COPD exac vs PNA vs anxiety) and oliguria due to noncompliance with home meds SOB sec to COPD exac - resolved - Pt found to be non compliant with his COPD medications and is a lifetime smoker. - Solumedrol given in ED, now on 50mg prednisone PO, tapering to 25. - Continued home Symbicort and Duoneb. Educated pt on importance of taking meds regularly. - O2 saturations 95-96 on room air - CT of chest showed mild emphysema, chronic atelectasis in left lobe, mild inflammatory/infectious change. Also, severe hepatic steatosis. - Smoking cessation consult given. Hypokalemia - improved. - potassium was 3 - gave 40meq of potassium once and 20 daily EtOH withdrawal - improving - Treated with IV Ativan, IV phenobarbital, nursing 1:1, Librium and IV electrolyte monitoring and replacement per protocol. - Have discussed at length the option of transferring to inpatient alcoholic rehab, pt declined. C.diff - Pt developed diarrhea on Saturday, culture came back + for C. diff. - Metronidazole administered, prescribed doses to be completed 2 weeks post DC. Hypertension, chronic - Stopped home clonidine - Switched to lisinopril 20mg OD BPH - DCed dee, pt voiding well. On last day, pt complained of bladder fullness and dribbling. - Sent [facility] instructions to treat with straight cath if more than 300ml left in bladder PRN. - Continuing home Doxazosin 4mg daily qhs. Depression/Anxiety - On zoloft and being given 100mg bid - Remeron 30mg QHS. Diet - regular diet Total Time Spent: Greater than 30 minutes This includes examination of the patient, discharge planning, medication reconciliation, and communication with other providers. (Nay Robles M.D.) Resident Physician Supervision Note: I interviewed and examined the patient. Discussed with Dr. Robles and agree with findings and plan as documented in the note. Any exceptions or clarifications are listed here: None Documented By: Rosas Licea urinary retention bothering him able to void but always feeling like he has to void. discussed management of this - dee vs attempting to void and straight cath prn - for now since retention but able to void medically would prefer straight cath prn. he's amenable to this. extensive extensive discussion on rehab placement - he's reticent to go but really today notes mostly due to urinary retention - after discussions on how this can be managed at rehab and that in general it's an outpatient dx he's still reticent but ceases to refuse to leave. no other acute complaints today. vitals noted up to bathroom twice to try to void during interview, somewhat angry, but able to be calmed. breathing unlabored COPD exacerbation - improving Cdiff - flagyl EtOH abuse/withdrawal - out of withdrawal BPH w urinary retention - had dee, now back on doxazosin, ongoing follow and straight cath q6 prn, possibly will need re-placement of dee and/or urology evaluation deconditioning / weakness - for rehab otherwise as above Total Time Spent: Greater than 30 minutes (Rosas Licea, D.Travis.) Discharge Instructions Please refer to the electronic Patient Visit Report (Discharge Instructions) for additional information. (Nay Robles M.D.) Follow-Up Recommend follow up with your PCP to evaluate for further treatment for BPH. (Nay Robles M.D.) [facility]
[2017-07-10] MEDS: METRONIDAZOLE 500 MG TAB PO SCH ×2 (08:06→14:00)
[2017-07-10] MEDS: LISINOPRIL 20 MG TAB PO SCH (08:06)
[2017-07-10] MEDS: SERTRALINE HCL 100 MG TAB PO SCH (08:07)
[2017-07-10] MEDS: POTASSIUM CHLORIDE 20 MEQ TABCR PO SCH (08:08)
[2017-07-10] MEDS: IPRATROPIUM BROMIDE/ALBUTEROL respimat INH INH SCH ×2 (08:08→13:00)
[2017-07-10] MEDS: BUDESONIDE/FORMOTEROL FUMARATE 160/4.5 60 PUFFS/INHALER INH SCH (08:08)
--- NOTE | 2017-07-11 19:42 | Progress Note ---
Progress Note Date of Service Jul 11, 2017. Progress Note informed by case management this AM that pt never arrived at [facility] yesterday [facility] case management, [facility] team have been trying to reach pt by phone -no answers i've tried to call personally - no answer [facility] called noting that pt's sister called them wondering if they knew patient's whereabouts - noted that they and sister are also trying to reach him this is an unfortunate turn of events in his decision making since he was willing to go to [facility], and his medical plan was set to continue under the auspices that he would be going to a rehab hospital. in that respect it would be likely that his Cdiff would continue to improve w treatment, COPD would be under treatment, and urinary retention would have time to self-resolve under medical supervision and straight cath q6 prn, failing that then dee. were he to tell us he never planned on going to [facility] discharge plan would have been modified to make home safe (likely including short term dee and urology follow up w urinary retention) discussed with family practice nurse practitioner for other options since pt has not been accessible by phone and i have fears for his well being since his essentially AMA status has him at risk - she will see if police would be able to check on him for safety.
== END 2017-07-10 16:00 | DRG 191 ==
LOC: C.EDB 20:07 → C.MED 07-04 02:41 → ENRESERV 07-04 03:01 → C.MED 07-06 09:06
PROVIDERS: ADMIT Internal Medicine; ATTEND Family Medicine
DX: J44.1 Chronic obstructive pulmonary disease with (acute) exacerbation (principal); F10.239 Alcohol dependence with withdrawal, unspecified; B96.89 Other specified bacterial agents as the cause of diseases classified elsewhere; F17.200 Nicotine dependence, unspecified, uncomplicated; I10 Essential (primary) hypertension; D69.6 Thrombocytopenia, unspecified; N40.0 Benign prostatic hyperplasia without lower urinary tract symptoms; F32.9 Major depressive disorder, single episode, unspecified; F41.9 Anxiety disorder, unspecified; Z82.49 Family history of ischemic heart disease and other diseases of the circulatory system; Z83.3 Family history of diabetes mellitus

== ENCOUNTER 2017-11-07 17:16 | Inpatient (IN) | payer OTHER ==
[~2017-11-07] VITALS: Ht 182.9 cm; Wt 78.5 kg
[~2017-11-07 17:16] MED LIST changes: -BUPR-79 PO; -CRD1 PO; -CTP1 PO; +DOXA1TAB88 PO; -FINA5TAB PO; -FLR1 PO; +LSN20 PO; +MTR500 PO; -MULT-589 PO; -PHEN-1043 PO; -SYMIN INH; +SYMIN160 INH
[2017-11-07] MEDS ORDERED: ONDANSETRON INJ 2 MG/ML 2 ML VIAL IV STA (17:32)
[2017-11-07] MEDS ORDERED: LORAZEPAM 2 MG/ML 1 ML VIAL IV STA ×3 (17:32→19:04)
[2017-11-07] MEDS ORDERED: ALBUT/IPRATROP 3MG/0.5MG NEB 3 ML VIAL INH STA (17:32)
[2017-11-07] MEDS ORDERED: MULTI-VITAMIN INFUSION INJ 10 ML, THIAMINE HCL INJ 100 MG, FoLIC ACID INJ 1 MG in SODIU... IV ONE ×2 (17:45→21:45)
[2017-11-07] MEDS ORDERED: METHYLPREDNISOLONE IV 125 MG in SYRINGE 0 ML IV STA (18:06)
--- NOTE | 2017-11-07 18:06 | EMERGENCY ROOM VISIT NOTE ---
History First contact with patient: 17:21 Chief Complaint: OTHER COMPLAINT Stated Complaint: ALCOHOL WITHDRAW, COPD, TROUBLE BREATHING History of Present Illness 72 M presents to the ED with SOB, abdominal pain, vomiting, shaking for one day. Patient has a PMH significant for alcohol abuse, COPD. He says that he has been on a 5 day drinking binge and reports having his last drink last night. He reports drinking 750 ml of Vodka and smokes 1 PPD. Over the past day, he describes general abdominal discomfort, nausea and vomiting. He describes about 5 episodes of nonbloody emesis. He also reports to falling and hitting his head. Patient was brought in by a friend who has been watching over him, otherwise he lives alone. Patient was released from a 21 day alcohol rehab program on . Patient also endorses hematuria. Review of Systems see below Eyes: + worsening of vision Respiratory: + cough, + wheezing, + shortness of breath, No hemoptysis Abdomen: + pain, + nausea, + vomiting, + diarrhea, No GI bleeding Genitourinary - Male: + hematuria Psychiatric: + anxiety, + substance abuse Past Medical/Surgical History Medical Problems: (1) Alcohol withdrawal (2) COPD (chronic obstructive pulmonary disease) (3) Delirium tremens (4) Hypertensive urgency (5) Mild emphysema Family History Diabetes mellitus Heart disease Hypertension Social History Smoking Status: Current Every Day Smoker Alcohol Use: occasionally Drug Use: none Marital Status: Housing Status: lives alone Occupation Status: employed Current/Historical Medications Scheduled Doxazosin Mesylate (Doxazosin), 4 MG PO HS Mirtazapine (Mirtazapine), 30 MG PO HS Sertraline (Zoloft), 100 MG PO DAILY Physical Exam Vital Signs Date Time Temp Pulse Resp B/P (MAP) Pulse Ox O2 Delivery O2 Flow Rate FiO2 11/07/17 19:14 101 20 148/87 92 Room Air 11/07/17 18:53 106 22 182/95 96 Room Air 11/07/17 18:34 106 26 95 Room Air 11/07/17 17:53 97 11/07/17 17:40 97 Room Air 11/07/17 17:18 36.4 97 18 175/82 95 Room Air Physical Exam see below General Appearance: + moderate distress Head: normocephalic, atraumatic Eyes: PERRL, EOMI (normal movement, but patient has difficulty tracking and focusing ) Neck: supple, no adenopathy Respiratory/Chest: chest non-tender, + accessory muscle use, + wheezing ( left sided ) Cardiovascular: regular rate, rhythm, no edema, no gallop, no murmur Abdomen / GI: + distended Extremities: no calf tenderness, no pedal edema Neurologic/Psych: legal compliance officer II-XII nml as tested, no motor/sensory deficits Medical Decision & Procedures Laboratory Results 11/07/17 18:20 Red Blood Count 4.61, Mean Corpuscular Volume 90.0, Mean Corpuscular Hemoglobin 30.8, Mean Corpuscular Hemoglobin Concent 34.2, Mean Platelet Volume 10.1, Neutrophils (%) (Auto) 91.5, Lymphocytes (%) (Auto) 4.3, Monocytes (%) (Auto) 4.0, Eosinophils (%) (Auto) 0.0, Basophils (%) (Auto) 0.1, Neutrophils # (Auto) 7.05, Lymphocytes # (Auto) 0.33, Monocytes # (Auto) 0.31, Eosinophils # (Auto) 0.00, Basophils # (Auto) 0.01 11/07/17 18:20 Test 11/07/17 18:20 11/07/17 18:27 11/07/17 18:30 White Blood Count 7.71 K/uL (4.8-10.8) Red Blood Count 4.61 M/uL (4.7-6.1) Hemoglobin 14.2 g/dL (14.0-18.0) Hematocrit 41.5 % (42-52) Mean Corpuscular Volume 90.0 fL (80-100) Mean Corpuscular Hemoglobin 30.8 pg (25-34) Mean Corpuscular Hemoglobin Concent 34.2 g/dl (32-36) Platelet Count 73 K/uL (130-400) Mean Platelet Volume 10.1 fL (7.4-10.4) Neutrophils (%) (Auto) 91.5 % Lymphocytes (%) (Auto) 4.3 % Monocytes (%) (Auto) 4.0 % Eosinophils (%) (Auto) 0.0 % Basophils (%) (Auto) 0.1 % Neutrophils # (Auto) 7.05 K/uL (1.4-6.5) Lymphocytes # (Auto) 0.33 K/uL (1.2-3.4) Monocytes # (Auto) 0.31 K/uL (0.11-0.59) Eosinophils # (Auto) 0.00 K/uL (0-0.5) Basophils # (Auto) 0.01 K/uL (0-0.2) RDW Standard Deviation 44.1 fL (36.4-46.3) RDW Coefficient of Variation 13.5 % (11.5-14.5) Immature Granulocyte % (Auto) 0.1 % Immature Granulocyte # (Auto) 0.01 K/uL (0.00-0.02) Prothrombin Time 9.5 SECONDS (9.0-12.0) Prothromb Time International Ratio 0.9 (0.9-1.1) Activated Partial Thromboplast Time 24.0 SECONDS (21.0-31.0) Partial Thromboplastin Ratio 0.9 Anion Gap 15.0 mmol/L (3-11) Est Creatinine Clear Calc Drug Dose 70.1 ml/min Estimated GFR () 83.9 Estimated GFR (Non- 72.4 BUN/Creatinine Ratio 18.1 (10-20) Calcium Level 8.8 mg/dl (8.5-10.1) Total Bilirubin 0.6 mg/dl (0.2-1) Aspartate Amino Transf (AST/SGOT) 45 U/L (15-37) Alanine Aminotransferase (ALT/SGPT) 32 U/L (12-78) Alkaline Phosphatase 96 U/L (45-117) Total Creatine Kinase 134 U/L (39-308) Troponin I < 0.015 ng/ml (0-0.045) Total Protein 8.1 gm/dl (6.4-8.2) Albumin 3.9 gm/dl (3.4-5.0) Globulin 4.2 gm/dl (2.5-4.0) Albumin/Globulin Ratio 0.9 (0.9-2) Lipase 128 U/L (73-393) Ethyl Alcohol mg/dL 15.0 mg/dl (0-3) Urine Color YELLOW Urine Appearance CLEAR (CLEAR) Urine pH 5.0 (4.5-7.5) Urine Specific [place] 1.027 (1.000-1.030) Urine Protein TRACE (NEG) Urine Glucose (UA) TRACE (NEG) Urine Ketones 2+ (NEG) Urine Occult Blood 2+ (NEG) Urine Nitrite POS (NEG) Urine Bilirubin NEG (NEG) Urine Urobilinogen NEG (NEG) Urine Leukocyte Esterase SMALL (NEG) Urine WBC (Auto) 10-30 /hpf (0-5) Urine RBC (Auto) 0-4 /hpf (0-4) Urine Hyaline Casts (Auto) 0 /lpf (0-5) Urine Epithelial Cells (Auto) 5-10 /lpf (0-5) Urine Bacteria (Auto) 1+ (NEG) Urine Yeast (Auto) BUDDING (NONE PRSENT) Medications Administered Medications (Trade) Dose Ordered Sig/Frances Route Start Time Stop Time Status Last Admin Dose Admin Ondansetron HCl (Zofran Inj) 4 mg NOW STAT IV 11/07/17 17:32 11/07/17 17:40 DC 11/07/17 18:20 4 MG Lorazepam (Ativan Inj) 1 mg NOW STAT IV 11/07/17 17:32 11/07/17 17:40 DC 11/07/17 18:20 1 MG Albuterol/ Ipratropium (Duoneb) 3 ml ONE STAT INH 11/07/17 17:32 11/07/17 17:40 DC 11/07/17 18:10 3 ML Multivitamins 10 ml/Thiamine HCl 100 mg/Folic Acid 1 mg/Sodium Chloride 1,011.2 ml @ 250 mls/ hr Q4H3M ONCE IV 11/07/17 17:45 11/07/17 21:47 11/07/17 18:20 250 MLS/HR Methylprednisolone Sodium Succinate 125 mg/Syringe 2 ml @ 1.5 mls/min ONE STAT IV 11/07/17 18:06 11/07/17 18:08 DC 11/07/17 18:25 1.5 MLS/MIN Sodium Chloride 1,000 ml @ 999 mls/hr Q1H1M IV 11/07/17 19:15 12/07/17 19:14 11/07/17 19:08 999 MLS/HR Lorazepam (Ativan Inj) 2 mg NOW STAT IV 11/07/17 19:04 11/07/17 19:06 DC 11/07/17 19:08 2 MG ECG Rate (beats per minute): 94 Rhythm: normal sinus Change: no significant change ED Course 1800 History and physical performed 181 Ordered labs and imaging 183 Prescribed patient Ativan, Zofran, banana bag 1900 Reaccessed patient, provided 2nd dose of ativan 1930 discussed case with hospitalist Medical Decision 72 M presents to the ED with SOB, abdominal pain, vomiting, shaking for one day Considering the following differential; alcohol withdraw, Wernicke Korsakoff, COPD, pancreatitis, liver cirrhosis, viral gastroenteritis Ordered the following test; CBC, CMP, lipase, PT INR, PTT, EKG, Chest Xray, head CT No acute finding found on head CT and CXR. Treating the patients withdrawal symptoms/dehydration; Zofran, Ativan, banana bag Treating patient for COPD exacerbation; Duoneb treatment and IV Solumedrol. Admitting the patient for acute withdrawal. Dr. Holt discussed the case with Dr. Ahumada Impression Primary Impression: Alcohol withdrawal Departure Information Dispostion Admitted as an inpatient Condition FAIR Referrals No Doctor, Assigned (PCP) Patient Instructions [facility]
--- NOTE | 2017-11-07 18:14 | DIAGNOSTIC IMAGING REPORT ---
CHEST ONE VIEW PORTABLE CLINICAL HISTORY: Shortness of breath. COMPARISON STUDY: Chest radiograph and chest CT July 03, 2017. FINDINGS: Lung volumes are normal. There is no pneumothorax or pleural effusion. There is no evidence of pulmonary edema. Blunting of the left costophrenic angle is chronic. Linear left lung opacities are consistent with atelectasis or scarring. There is no consolidation to suggest pneumonia. Cardiomediastinal silhouette is normal. IMPRESSION: 1. No acute findings. 2. Linear left lung opacities consistent with atelectasis or scarring. Electronically signed by: Chavez Alvarez M.D. 11/07/2017 6:13 PM Dictated Date/Time: 11/07/2017 6:08 PM
[2017-11-07 18:45] LABS: INR 0.9 (0.9-1.1); PARTIAL THROMBOPLASTIN RATIO 0.9; PROTHROMBIN TIME (PATIENT) 9.5 SECONDS (9.0-12.0)
--- NOTE | 2017-11-07 18:51 | DIAGNOSTIC IMAGING REPORT ---
CT OF THE HEAD WITHOUT CONTRAST CLINICAL HISTORY: alcohol intox, fall COMPARISON STUDY: Head CT May 19, 2016. CT DOSE: 614.27 mGy.cm TECHNIQUE: Helical axial images of the head were obtained without IV contrast. Automated exposure control was utilized for the study. A dose lowering technique was utilized adhering to the principles of ALARA. FINDINGS: No acute intracranial hemorrhage, midline shift or mass effect is present. Ventricular system is stable. Basilar cisterns are patent. There are no extra-axial collections. Extensive white matter hypodensities are similar to prior exam and suggest small vessel disease. There are no findings to suggest acute dural sinus thrombosis or acute territorial infarct. There is no calvarial fracture. A probable left maxillary sinus mucous retention cyst is partially imaged. IMPRESSION: 1. No acute intracranial findings. No significant change since exam of May 19, 2016. 2. No calvarial fracture. Electronically signed by: Chavez Alvarez M.D. 11/07/2017 6:49 PM Dictated Date/Time: 11/07/2017 6:45 PM
[2017-11-07 18:57] LABS: HEMATOCRIT 41.5 % (42-52); MEAN CORPUSCULAR HEMOGLOBIN 30.8 pg (25-34); MEAN CORPUSCULAR HGB CONC 34.2 g/dl (32-36); MEAN PLATELET VOLUME 10.1 fL (7.4-10.4); PLATELET COUNT 73 K/uL (130-400); RED BLOOD COUNT 4.61 M/uL (4.7-6.1); WHITE BLOOD COUNT 7.71 K/uL (4.8-10.8)
[2017-11-07 18:58] LABS: BASO % 0.1 %; BASO ABS # 0.01 K/uL (0-0.2); COMPLETE YES; IG% 0.1 %; LYMPH % 4.3 %; LYMPH ABS # 0.33 K/uL (1.2-3.4); NEUT % 91.5 %
[2017-11-07 18:59] LABS: ALT/SGPT 32 U/L (12-78); AST/SGOT 45 U/L (15-37); BLOOD UREA NITROGEN 19 mg/dl (7-18); BUN/CREATININE RATIO 18.1 (10-20); CALCIUM 8.8 mg/dl (8.5-10.1); CARBON DIOXIDE 16 mmol/L (21-32); CHLORIDE 105 mmol/L (98-107); CREATININE 1.04 mg/dl (0.60-1.40); GLUCOSE 122 mg/dl (70-99); POTASSIUM 4.4 mmol/L (3.5-5.1); SODIUM 136 mmol/L (136-145)
[2017-11-07 19:03] LABS: URINE APPEARANCE CLEAR (CLEAR); URINE BILIRUBIN NEG (NEG); URINE COLOR YELLOW; URINE NITRITE POS (NEG); URINE SPECIFIC GRAVITY 1.027 (1.000-1.030); UROBILINOGEN NEG (NEG); ZZUR CULT IF INDIC CLEAN CATCH YES
[2017-11-07 19:04] LABS: ALB/GLOB RATIO 0.9 (0.9-2); ALKALINE PHOSPHATASE 96 U/L (45-117)
[2017-11-07 19:04] LABS: MANUAL MICROSCOPIC REQUIRED? NO; REVIEW REQ? YES
[2017-11-07] MEDS ORDERED: SODIUM CHLORIDE 0.9% 1000ML 1,000 ML IV SCH (19:15)
[2017-11-07] MEDS ORDERED: DOXA4TAB5 PO (19:20)
[2017-11-07] MEDS ORDERED: SERT-234 PO (19:20)
[2017-11-07] MEDS ORDERED: RMR15 PO (19:20)
[2017-11-07] MEDS ORDERED: LORAZEPAM 2 MG/ML 1 ML VIAL IV PRN ×2 (19:45)
--- NOTE | 2017-11-07 19:53 | EMERGENCY ROOM VISIT NOTE ---
ED Visit Note First contact with patient: 17:21 Resident Physician Supervision Note: Dr. Robles was resident physician during care of patient. I separately evaluated patient and did history and exam. I discussed the case with the resident and generally agree with the findings and plan. 72 yr old male arrives following week long etoh binge. He is quite tremulous, tachycardic and hypertensive 1 day post last drink. Findings consistent with acute etoh withdrawal. Also with mild COPD exacerbation on top of this. No clear evidence aspiration though did admit some vomiting. Labs consistent with dehydration (low bicarb). Given IV fluids, Ativan IV, Banana Bag for etoh issues, given duoneb/solumedrol for COPD exacerbation. Reviewed with hospitalist and will defer abx to them as not clear lung infection and UA may just be dehydration related. Diagnosis: Alcohol Withdrawal COPD Exacerbation Dehydration Documented By: Eze Holt MD
[2017-11-07] MEDS ORDERED: ALBUT/IPRATROP 3MG/0.5MG NEB 3 ML VIAL INH PRN (20:00)
[2017-11-07] MEDS ORDERED: CLONIDINE HCL 0.1 MG TAB PO PRN (20:00)
--- NOTE | 2017-11-07 20:29 | History and Physical ---
History & Physical Date & Time of Service: Nov 07, 2017 at 20:08 Chief Complaint: Alcohol Withdraw, Copd, Trouble Breathing Primary Care Physician: No Doctor, Assigned History of Present Illness Source: patient 72 y/o M Hx ETOH abuse, COPD. The pt was admitted approximately one month prior and attended a 21 day rehab program following. Upon discharge he promptly resumed alcohol use. He has been on a 5 day darian, consuming at least a 5th of Vodka daily. He became ill earlier in the day, describing abdominal discomfort, nausea and 5 episodes of vomiting. He additionally c/o weakness and SOB which is chronic. He denies CP, fevers/rigors, diarrhea. He is exhibiting moderate withdrawal symptoms at the time of admission. Labs are consistent with dehydration. Past Medical/Surgical History 1) Alcohol abuse 2) COPD 3) Thrombocytopenia Family History Diabetes mellitus Heart disease Hypertension Social History Smoking Status: Current Every Day Smoker Drug Use: none Marital Status: Occupational Status: employed Multi-Drug Resistant Organisms History of MDRO: No Allergies Coded Allergies: No Known Allergies (Unverified , 07/03/17) Home Medications Scheduled Doxazosin Mesylate (Doxazosin), 4 MG PO HS Mirtazapine (Mirtazapine), 30 MG PO HS Sertraline (Zoloft), 100 MG PO DAILY Review of Systems Constitutional: No fever, No chills, No sweats Eyes: + worsening of vision ENT: + hearing loss, + nasal symptoms Respiratory: + cough, + shortness of breath (chronic), No wheezing Cardiovascular: No chest pain, No orthopnea, No PND Abdomen: + pain, + nausea, + vomiting Genitourinary - Male: No hematuria, No dysuria Psychiatric: No depression symptoms Endocrine: No fatigue Hematologic / Lymphatic: No abnormal bleeding/bruising, No clotting problems Integumentary: No rash Allergic / Immunologic: No environmental allergies Physical Exam Vital Signs Date Time Temp Pulse Resp B/P (MAP) Pulse Ox O2 Delivery O2 Flow Rate FiO2 11/07/17 19:14 101 20 148/87 92 Room Air 11/07/17 18:53 106 22 182/95 96 Room Air 11/07/17 18:34 106 26 95 Room Air 11/07/17 17:53 97 11/07/17 17:40 97 Room Air 11/07/17 17:18 36.4 97 18 175/82 95 Room Air General Appearance: WD/WN, no apparent distress, + pertinent finding ( Disheveled, elderly male - no distress - tremors noted BL) Head: normocephalic Eyes: normal inspection ENT: normal ENT inspection, pharynx normal Neck: supple, no JVD Respiratory/Chest: chest non-tender, lungs clear, normal breath sounds Cardiovascular: no edema, no gallop, + tachycardia Abdomen/GI: normal bowel sounds, non tender, soft Back: normal inspection, no CVA tenderness Extremities/Musculoskelatal: normal inspection, no calf tenderness, normal capillary refill, no pedal edema, normal range of motion Neurologic/Psych: it service continuity supervisor II-XII nml as tested, no motor/sensory deficits, alert, oriented x 3 Skin: + pertinent finding (Genrrally erythematous in appearance) Diagnostics Laboratory Results Results Past 24 Hours Test 11/07/17 18:20 11/07/17 18:27 11/07/17 18:30 Range/Units White Blood Count 7.71 4.8-10.8 K/uL Red Blood Count 4.61 4.7-6.1 M/uL Hemoglobin 14.2 14.0-18.0 g/dL Hematocrit 41.5 42-52 % Mean Corpuscular Volume 90.0 80-100 fL Mean Corpuscular Hemoglobin 30.8 25-34 pg Mean Corpuscular Hemoglobin Concent 34.2 32-36 g/dl Platelet Count 73 130-400 K/uL Mean Platelet Volume 10.1 7.4-10.4 fL Neutrophils (%) (Auto) 91.5 % Lymphocytes (%) (Auto) 4.3 % Monocytes (%) (Auto) 4.0 % Eosinophils (%) (Auto) 0.0 % Basophils (%) (Auto) 0.1 % Neutrophils # (Auto) 7.05 1.4-6.5 K/uL Lymphocytes # (Auto) 0.33 1.2-3.4 K/uL Monocytes # (Auto) 0.31 0.11-0.59 K/uL Eosinophils # (Auto) 0.00 0-0.5 K/uL Basophils # (Auto) 0.01 0-0.2 K/uL RDW Standard Deviation 44.1 36.4-46.3 fL RDW Coefficient of Variation 13.5 11.5-14.5 % Immature Granulocyte % (Auto) 0.1 % Immature Granulocyte # (Auto) 0.01 0.00-0.02 K/uL Prothrombin Time 9.5 9.0-12.0 SECONDS Prothromb Time International Ratio 0.9 0.9-1.1 Activated Partial Thromboplast Time 24.0 21.0-31.0 SECONDS Partial Thromboplastin Ratio 0.9 Sodium Level 136 136-145 mmol/L Potassium Level 4.4 3.5-5.1 mmol/L Chloride Level 105 98-107 mmol/L Carbon Dioxide Level 16 21-32 mmol/L Anion Gap 15.0 3-11 mmol/L Blood Urea Nitrogen 19 7-18 mg/dl Creatinine 1.04 0.60-1.40 mg/dl Est Creatinine Clear Calc Drug Dose 70.1 ml/min Estimated GFR () 83.9 Estimated GFR (Non- 72.4 BUN/Creatinine Ratio 18.1 10-20 Random Glucose 122 70-99 mg/dl Calcium Level 8.8 8.5-10.1 mg/dl Total Bilirubin 0.6 0.2-1 mg/dl Aspartate Amino Transf (AST/SGOT) 45 15-37 U/L Alanine Aminotransferase (ALT/SGPT) 32 12-78 U/L Alkaline Phosphatase 96 45-117 U/L Total Creatine Kinase 134 39-308 U/L Troponin I < 0.015 0-0.045 ng/ml Total Protein 8.1 6.4-8.2 gm/dl Albumin 3.9 3.4-5.0 gm/dl Globulin 4.2 2.5-4.0 gm/dl Albumin/Globulin Ratio 0.9 0.9-2 Lipase 128 73-393 U/L Ethyl Alcohol mg/dL 15.0 0-3 mg/dl Urine Color YELLOW Urine Appearance CLEAR CLEAR Urine pH 5.0 4.5-7.5 Urine Specific [place] 1.027 1.000-1.030 Urine Protein TRACE NEG Urine Glucose (UA) TRACE NEG Urine Ketones 2+ NEG Urine Occult Blood 2+ NEG Urine Nitrite POS NEG Urine Bilirubin NEG NEG Urine Urobilinogen NEG NEG Urine Leukocyte Esterase SMALL NEG Urine WBC (Auto) 10-30 0-5 /hpf Urine RBC (Auto) 0-4 0-4 /hpf Urine Hyaline Casts (Auto) 0 0-5 /lpf Urine Epithelial Cells (Auto) 5-10 0-5 /lpf Urine Bacteria (Auto) 1+ NEG Urine Yeast (Auto) BUDDING NONE PRSENT Microbiology Results 11/07/17 Urine Culture, Received Pending Impression Assessment and Plan 72 y/o M Hx ETOH abuse, COPD. The pt was admitted approximately one month prior and attended a 21 day rehab program following. Upon discharge he promptly resumed alcohol use. He has been on a 5 day darian, consuming at least a 5th of Vodka daily. He became ill earlier in the day, describing abdominal discomfort, nausea and 5 episodes of vomiting. He additionally c/o weakness and SOB which is chronic. He denies CP, fevers/rigors, diarrhea. He is exhibiting moderate withdrawal symptoms at the time of admission. Labs are consistent with dehydration. 1) Alcohol abuse - early DTs - Pt placed on PRN Ativan, scheduled Librium, Thiamine, Folate and IVF. He will be started on a Bblocker and PRN Hydralazine as he takes scheduled Doxazosin. 2) Nausea and vomiting - etiology not clear - may be ETOH-related. Appears to have resolved - IVF and fluids provided - clear diet. 3) COPD - no evidence of exacerbation - he may hae baselein 02 requirements and continues to smoke. He has been placed on an 02 protocol and PRN Duonebs. He would likely benefit from scheduled medication, however, compliance is an issue. 4) Tobacco use - there is no intent to quit presently and we believe ETOH is a more pressing issue. 5) Thrombocytopenia - platelet count is stable. Full code - SCDs due to fall risk Total time for this admit including review of labs, meds, imaging - discussion with pt and ER attending - 37 min Level of Care Telemetry Resuscitation Status FULL RESUSCITATION VTE Prophylaxis VTE Risk Assessment Done? Y/N: Yes Risk Level: Low Given or contraindicated: SCD's
[2017-11-07 21:00] VITALS: BP_SYST 223; BP_DIAS 125; BP_DIAS 131; PULSE 120; TEMP 37.2; O2SAT 93; Ht 182.9 cm; Wt 78.5 kg
[2017-11-07] MEDS ORDERED: LORAZEPAM INJ 2 MG in SYRINGE 1 ML IV PRN (21:45)
[2017-11-07] MEDS: CHLORDIAZEPOXIDE 25 MG CAP PO SCH (21:52)
[2017-11-07] MEDS: HydrALAZINE HCL 20 MG/ML VIAL IV. PRN (21:52)
[2017-11-07 22:06] VITALS: BP 199/107; PULSE 103
[2017-11-07] MEDS: DOXAZosin MESYLATE TAB 4 MG TAB PO SCH (22:37)
[2017-11-07] MEDS: METOPROLOL TARTRATE 25 MG TAB PO SCH (22:37)
[2017-11-07 23:05] VITALS: BP 195/111; PULSE 112; TEMP 36.8; O2SAT 95
[2017-11-08] VITALS (11 sets, daily range): BP systolic 146–210; BP diastolic 85–121; PULSE 62–95; TEMP 36.3–37; O2SAT 93–98
[2017-11-08] MEDS: LORAZEPAM 2 MG/ML 1 ML VIAL IV PRN ×2 (00:14→03:28)
[2017-11-08] MEDS: D5W AND NSS 1,000 ML IV SCH ×2 (03:28→08:00)
[2017-11-08] MEDS ORDERED: NURSING VERBAL MED ORDER ONE (04:45)
[2017-11-08] MEDS: HydrALAZINE HCL 20 MG/ML VIAL IV. PRN (04:50)
[2017-11-08] MEDS ORDERED: HydrALAZINE HCL 20 MG/ML VIAL IV. STA (05:29)
[2017-11-08] MEDS: CHLORDIAZEPOXIDE 25 MG CAP PO SCH ×3 (06:13→21:06)
[2017-11-08] MEDS: MULTI-VITAMIN INFUSION INJ 10 ML, THIAMINE HCL INJ 100 MG, FoLIC ACID INJ 1 MG in SODIU... IV SCH ×2 (08:16→19:43)
[2017-11-08] MEDS: SERTRALINE HCL 100 MG TAB PO SCH (08:17)
[2017-11-08] MEDS: METOPROLOL TARTRATE 25 MG TAB PO SCH ×3 (08:17→19:48)
[2017-11-08] MEDS ORDERED: MULTI-VITAMIN INFUSION INJ 10 ML, THIAMINE HCL INJ 100 MG, FoLIC ACID INJ 1 MG in SODIU... IV SCH (09:00)
[2017-11-08 09:56] LABS: BUN/CREATININE RATIO 17.5 (10-20); CALCIUM 8.4 mg/dl (8.5-10.1); CREATININE 0.93 mg/dl (0.60-1.40); MAGNESIUM 2.3 mg/dl (1.8-2.4); POTASSIUM 3.7 mmol/L (3.5-5.1)
--- NOTE | 2017-11-08 10:41 | Clinical Documentation Query ---
SUMMER Siddiqui : CLINICAL DOCUMENTATION QUERY Patient is a 72 year old male admitted for evaluation and treatment of abdominal pain, vomiting, tremors. Patient reported hematuria on admission. Issues with retention and frequency on night of admission. UA additionally positive for nitrite, leukocyte esterase, WBC's. Urine culture pending. As appropriate, until ruled out, consider documentation of possible and/or suspected diagnosis(es). In your clinical opinion is this patient being managed for: ( ) (Possible/Suspected) Urinary tract infection (x ) Not Agree ( ) Other explanation of clinical findings (Please Explain) ( ) Unable to determine (Please Define) ( ) Need to Discuss The medical record reflects the following clinical findings, treatment, and risk factors. Clinical Indicators: As above Treatment: UA additionally positive for nitrite, leukocyte esterase, WBC's. Urine culture pending. Please clarify and document your clinical opinion in the progress notes and discharge summary. Terms such as "probable", "suspected", "likely", "questionable", "possible", or "still to be ruled out" are acceptable. IF IN AGREEMENT, YOU MUST DOCUMENT ABOVE DIAGNOSTIC STATEMENT IN DAILY PROGRESS NOTES AND DISCHARGE SUMMARY. This document is not part of the patient's record. Thank You, Anand Cano, RN [phone]
--- NOTE | 2017-11-08 17:42 | Hospitalist Progress Note ---
Hospitalist Progress Note Date of Service Nov 08, 2017. (Sarina Loza PA-C) Subjective Pt evaluation today including: conversation w/ patient, physical exam, chart review, lab review, review of studies, review of inpatient medication list Patient seen and evaluated. Currently withdrawing from alcohol. He reports he feels anxious and restless. He is on schedule Librium with Ativan per AWSS protocol. Tolerating diet so far without issue. Was incontinent of loose stool. Case management discussed with patient and supervisor dog license officer. Initially stated he would prefer to return home but then agreed to having help. money position officer concern that ETOH treatment did not focus on depression as patient does present with concerns for this. Patient is pleasant and calm. Tremors noted but affect is flat. Minimally conversational. Constitutional: No fever, No chills Respiratory: No cough, No shortness of breath Cardiovascular: No chest pain Abdomen: + diarrhea, No pain, No nausea, No vomiting, No constipation, No GI bleeding Musculoskeletal: No swelling, No calf pain Male : No dysuria Psychiatric: + substance abuse Skin: No rash (Sarina Loza, DATC) Medications Current Inpatient Medications Medications (Trade) Dose Ordered Sig/Frances Route Start Time Stop Time Status Last Admin Dose Admin Lorazepam (Ativan Inj) 1 mg Q2H PRN IV 11/07/17 19:45 12/07/17 19:44 Lorazepam (Ativan Inj) 2 mg Q2H PRN IV 11/07/17 19:45 12/07/17 19:44 11/07/17 21:51 2 MG Chlordiazepoxide (Librium Cap) 25 mg Q8H PO 11/07/17 22:00 12/07/17 21:59 11/08/17 15:24 25 MG Metoprolol Tartrate (Lopressor Tab) 12.5 mg TID PO 11/08/17 09:00 12/08/17 08:59 11/08/17 15:23 12.5 MG Albuterol/ Ipratropium (Duoneb) 3 ml Q6H PRN INH 11/07/17 20:00 12/07/17 19:59 Dextrose/Sodium Chloride 1,000 ml @ 100 mls/hr Q10H IV 11/07/17 22:00 11/08/17 17:59 11/08/17 03:28 100 MLS/HR Doxazosin Mesylate (Cardura Tab) 4 mg HS PO 11/08/17 21:00 12/08/17 20:59 11/07/17 22:37 4 MG Sertraline HCl (Zoloft Tab) 100 mg DAILY PO 11/08/17 09:00 12/08/17 08:59 11/08/17 08:17 100 MG Multivitamins 10 ml/Thiamine HCl 100 mg/Folic Acid 1 mg/Sodium Chloride 1,011.2 ml @ 100 mls/ hr Q10H7M IV 11/08/17 09:00 12/08/17 08:59 11/08/17 08:16 100 MLS/HR Lorazepam 1 mg/ Syringe 1 ml @ 1 mls/min Q2H PRN IV 11/07/17 21:45 12/07/17 21:44 Lorazepam 2 mg/ Syringe 2 ml @ 1 mls/min Q2H PRN IV 11/07/17 21:45 12/07/17 21:44 Lorazepam (Ativan Inj) PRN Dosing -Active Protocol Q1H PRN IV 11/07/17 23:45 12/07/17 23:44 11/08/17 03:28 2 MG Hydralazine HCl (HydrALAZINE INJ) 10 mg Q6 PRN IV. 11/08/17 08:45 12/08/17 08:44 (Sarina Loza, DATC) Objective Vital Signs Date Time Temp Pulse Resp B/P (MAP) Pulse Ox O2 Delivery O2 Flow Rate FiO2 11/08/17 16:10 36.9 72 18 150/86 (107) 97 11/08/17 16:00 98 Nasal Cannula 2.0 11/08/17 12:00 Nasal Cannula 2.0 11/08/17 12:00 37.0 83 18 165/94 (117) 96 Nasal Cannula 3.0 11/08/17 10:27 156/85 (108) 11/08/17 08:00 97 Nasal Cannula 2.0 11/08/17 07:34 36.5 80 18 178/99 (125) 97 Nasal Cannula 2.0 181/95 (123) 11/08/17 05:18 83 162/88 (112) 11/08/17 04:00 Nasal Cannula 2.0 11/08/17 03:22 36.3 95 18 210/121 (150) 93 Nasal Cannula 2.0 11/08/17 00:57 36.7 85 16 170/90 (116) 95 Nasal Cannula 2.0 11/07/17 23:59 Nasal Cannula 2.0 11/07/17 23:05 36.8 112 24 195/111 (139) 95 Nasal Cannula 2.0 11/07/17 22:06 103 199/107 (137) 11/07/17 21:00 37.2 120 24 223/125 93 Nasal Cannula 2.0 223/131 11/07/17 20:18 96 16 171/93 96 Nasal Cannula 2.0 11/07/17 19:14 101 20 148/87 92 Room Air 11/07/17 18:53 106 22 182/95 96 Room Air 11/07/17 18:34 106 26 95 Room Air 11/07/17 17:53 97 11/07/17 17:40 97 Room Air (Sarina Loza, PA-C) Physical Exam General Appearance: + mild distress (mildly restless/tremors) Eyes: + abnormal sclerae exam (mild icterus) ENT: hearing grossly normal Neck: supple, no JVD, trachea midline Respiratory/Chest: lungs clear, normal breath sounds, no respiratory distress, no accessory muscle use Cardiovascular: regular rate, rhythm, no gallop, no murmur Abdomen: normal bowel sounds, non tender, soft Extremities: no pedal edema, no calf tenderness Neurologic/Psychiatric: alert, oriented x 3, + depressed affect, + pertinent finding (tremors of b/l hands) Skin: normal color, warm/dry (Sarina Loza, PA-C) Laboratory Results Last 24 Hours Test 11/07/17 18:20 11/07/17 18:27 11/07/17 18:30 11/08/17 09:00 White Blood Count 7.71 K/uL Red Blood Count 4.61 M/uL Hemoglobin 14.2 g/dL Hematocrit 41.5 % Mean Corpuscular Volume 90.0 fL Mean Corpuscular Hemoglobin 30.8 pg Mean Corpuscular Hemoglobin Concent 34.2 g/dl Platelet Count 73 K/uL Mean Platelet Volume 10.1 fL Neutrophils (%) (Auto) 91.5 % Lymphocytes (%) (Auto) 4.3 % Monocytes (%) (Auto) 4.0 % Eosinophils (%) (Auto) 0.0 % Basophils (%) (Auto) 0.1 % Neutrophils # (Auto) 7.05 K/uL Lymphocytes # (Auto) 0.33 K/uL Monocytes # (Auto) 0.31 K/uL Eosinophils # (Auto) 0.00 K/uL Basophils # (Auto) 0.01 K/uL RDW Standard Deviation 44.1 fL RDW Coefficient of Variation 13.5 % Immature Granulocyte % (Auto) 0.1 % Immature Granulocyte # (Auto) 0.01 K/uL Prothrombin Time 9.5 SECONDS Prothromb Time International Ratio 0.9 Activated Partial Thromboplast Time 24.0 SECONDS Partial Thromboplastin Ratio 0.9 Sodium Level 136 mmol/L 134 mmol/L Potassium Level 4.4 mmol/L 3.7 mmol/L Chloride Level 105 mmol/L 104 mmol/L Carbon Dioxide Level 16 mmol/L 23 mmol/L Anion Gap 15.0 mmol/L 7.0 mmol/L Blood Urea Nitrogen 19 mg/dl 16 mg/dl Creatinine 1.04 mg/dl 0.93 mg/dl Est Creatinine Clear Calc Drug Dose 70.1 ml/min 79.3 ml/min Estimated GFR () 83.9 96.1 Estimated GFR (Non- 72.4 82.9 BUN/Creatinine Ratio 18.1 17.5 Random Glucose 122 mg/dl 179 mg/dl Calcium Level 8.8 mg/dl 8.4 mg/dl Total Bilirubin 0.6 mg/dl Aspartate Amino Transf (AST/SGOT) 45 U/L Alanine Aminotransferase (ALT/SGPT) 32 U/L Alkaline Phosphatase 96 U/L Total Creatine Kinase 134 U/L Troponin I < 0.015 ng/ml Total Protein 8.1 gm/dl Albumin 3.9 gm/dl Globulin 4.2 gm/dl Albumin/Globulin Ratio 0.9 Lipase 128 U/L Ethyl Alcohol mg/dL 15.0 mg/dl Urine Color YELLOW Urine Appearance CLEAR Urine pH 5.0 Urine Specific [place] 1.027 Urine Protein TRACE Urine Glucose (UA) TRACE Urine Ketones 2+ Urine Occult Blood 2+ Urine Nitrite POS Urine Bilirubin NEG Urine Urobilinogen NEG Urine Leukocyte Esterase SMALL Urine WBC (Auto) 10-30 /hpf Urine RBC (Auto) 0-4 /hpf Urine Hyaline Casts (Auto) 0 /lpf Urine Epithelial Cells (Auto) 5-10 /lpf Urine Bacteria (Auto) 1+ Urine Yeast (Auto) BUDDING Magnesium Level 2.3 mg/dl (Sarina Loza PA-C) Assessment and Plan 72 y/o M Hx ETOH abuse, COPD. The pt was admitted approximately one month prior and attended a 21 day rehab program following. Upon discharge he promptly resumed alcohol use. He has been on a 5 day binge, consuming at least a 5th of Vodka daily. He became ill earlier in the day, describing abdominal discomfort, nausea and 5 episodes of vomiting. He additionally c/o weakness and SOB which is chronic. He denies CP, fevers/rigors, diarrhea. He is exhibiting moderate withdrawal symptoms at the time of admission. Labs are consistent with dehydration. ETOH Abuse: Early DTs - Completed 21 day program through [place] then resumed drinking - supervisor dog license officer concerned that may need focus on both ETOH and depression - guilt and depression over of son and - Banana bag and continued hydration - AWSS protocol with PRN Ativan; Continue Librium 25 mg Q8H FRANCES and will taper pending response Nausea and Vomiting: Likely ETOH-Related: - Resolving - continue clear liquid diet and re-evaluate in AM for advancement COPD without Exacerbation: - PRN nebulizers Thrombocytopenia: Likely from ETOH Use/Liver Disease?: STABLE DVT Prophylaxis: SCDs Disposition: - Agreeing for rehab - case management following Continued [facility] stay due to: multiple IV medications needed (Sarina Loza PA-C) After examining patient, I agree with above note. I also discussed case with APC and patient. I also answered all of the patient's questions. My exam is below: General Appearance: WD/WN, no apparent distress Eyes: scleral icterus noted Neck: supple, no JVD, trachea midline Respiratory/Chest: lungs clear, normal breath sounds, no respiratory distress Cardiovascular: regular rate, rhythm, no gallop, no murmur Abdomen: normal bowel sounds, non tender, soft Extremities: no pedal edema, no calf tenderness, tremors noted, Neurologic/Psychiatric: alert, decreased affect Skin: normal color, warm/dry (Jeovany Cervantes M.D.)
[2017-11-08] MEDS: DOXAZosin MESYLATE TAB 4 MG TAB PO SCH (19:48)
[2017-11-08] MEDS ORDERED: METOCLOPRAMIDE HCL INJ 5 MG/ML 2 ML VIAL IV SCH (21:00)
[2017-11-09] VITALS (8 sets, daily range): BP systolic 125–199; BP diastolic 78–106; PULSE 60–98; TEMP 36.4–36.9; O2SAT 94–98
[2017-11-09] MEDS: MULTI-VITAMIN INFUSION INJ 10 ML, THIAMINE HCL INJ 100 MG, FoLIC ACID INJ 1 MG in SODIU... IV SCH ×2 (05:10→16:27)
[2017-11-09] MEDS: CHLORDIAZEPOXIDE 25 MG CAP PO SCH ×3 (05:10→21:10)
[2017-11-09 07:47] LABS: RED BLOOD COUNT 4.55 M/uL (4.7-6.1); WHITE BLOOD COUNT 8.18 K/uL (4.8-10.8)
[2017-11-09 07:48] LABS: HEMATOCRIT 41.1 % (42-52); MEAN CELL VOLUME 90.3 fL (80-100); MEAN CORPUSCULAR HEMOGLOBIN 30.8 pg (25-34); MEAN CORPUSCULAR HGB CONC 34.1 g/dl (32-36)
[2017-11-09 07:56] LABS: MEAN PLATELET VOLUME 11.7 fL (7.4-10.4); PLATELET COUNT 62 K/uL (130-400)
[2017-11-09 08:20] LABS: BUN/CREATININE RATIO 14.1 (10-20); CALCIUM 7.9 mg/dl (8.5-10.1); CREATININE 1.02 mg/dl (0.60-1.40); POTASSIUM 3.4 mmol/L (3.5-5.1)
[2017-11-09] MEDS ORDERED: POTASSIUM CHLORIDE 10 MEQ TABCR PO STA (08:33)
[2017-11-09] MEDS: METOPROLOL TARTRATE 25 MG TAB PO SCH ×3 (08:40→20:30)
[2017-11-09] MEDS: SERTRALINE HCL 100 MG TAB PO SCH (08:40)
[2017-11-09] MEDS: DOXAZosin MESYLATE TAB 4 MG TAB PO SCH (20:31)
[2017-11-09] MEDS: LORAZEPAM INJ 1 MG in SYRINGE 0.5 ML IV PRN (21:09)
--- NOTE | 2017-11-09 21:20 | Progress Note ---
Subjective Date of Service: Nov 09, 2017. Subjective Pt evaluation today including: conversation w/ patient, physical exam, chart review, lab review 72 yo male presents to hospital with recent alcohol intoxication and is currently going through withdrawal. Patient reports that his symptoms have only mildly improved since when I saw him yesterday. Patient continues to feel fatigued and is having mild tremors. Patient states that the ativan helps with his symptoms. Px denies nausea, vomiting. Problem List Medical Problems: (1) Alcohol intoxication Status: Acute (2) COPD exacerbation Status: Acute (3) Fall Status: Acute (4) Head injury Status: Acute (5) Hypertension Status: Acute (6) Orthostatic dizziness Status: Acute (7) Scalp laceration Status: Acute Review of Systems Constitutional: No fever, No chills ENT: No hearing loss Respiratory: No cough, No sputum Cardiac: No chest pain, No orthopnea Abdomen: No pain, No nausea Musculoskeletal: No joint pain Psychiatric: No depression symptoms, No anhedonism Skin: No rash, No itch All Other Systems: Reviewed and Negative Medications Current Inpatient Medications Medications (Trade) Dose Ordered Sig/Frances Route Start Time Stop Time Status Last Admin Dose Admin Lorazepam (Ativan Inj) 1 mg Q2H PRN IV 11/07/17 19:45 12/07/17 19:44 Lorazepam (Ativan Inj) 2 mg Q2H PRN IV 11/07/17 19:45 12/07/17 19:44 11/07/17 21:51 2 MG Chlordiazepoxide (Librium Cap) 25 mg Q8H PO 11/07/17 22:00 12/07/17 21:59 11/10/17 06:01 25 MG Metoprolol Tartrate (Lopressor Tab) 12.5 mg TID PO 11/08/17 09:00 12/08/17 08:59 11/10/17 08:29 12.5 MG Albuterol/ Ipratropium (Duoneb) 3 ml Q6H PRN INH 11/07/17 20:00 12/07/17 19:59 Doxazosin Mesylate (Cardura Tab) 4 mg HS PO 11/08/17 21:00 12/08/17 20:59 11/09/17 20:31 4 MG Sertraline HCl (Zoloft Tab) 100 mg DAILY PO 11/08/17 09:00 12/08/17 08:59 11/10/17 08:30 100 MG Multivitamins 10 ml/Thiamine HCl 100 mg/Folic Acid 1 mg/Sodium Chloride 1,011.2 ml @ 100 mls/ hr Q10H7M IV 11/08/17 09:00 12/08/17 08:59 11/10/17 03:19 100 MLS/HR Lorazepam 1 mg/ Syringe 1 ml @ 1 mls/min Q2H PRN IV 11/07/17 21:45 12/07/17 21:44 11/10/17 00:07 1 MLS/MIN Lorazepam 2 mg/ Syringe 2 ml @ 1 mls/min Q2H PRN IV 11/07/17 21:45 12/07/17 21:44 Lorazepam (Ativan Inj) PRN Dosing -Active Protocol Q1H PRN IV 11/07/17 23:45 12/07/17 23:44 11/08/17 03:28 2 MG Hydralazine HCl (HydrALAZINE INJ) 10 mg Q6 PRN IV. 11/08/17 08:45 12/08/17 08:44 11/10/17 01:43 10 MG Potassium Chloride (Klor-Con M10) 30 meq BID PO 11/10/17 18:00 11/11/17 09:01 UNV Objective Vital Signs Date Time Temp Pulse Resp B/P (MAP) Pulse Ox O2 Delivery O2 Flow Rate FiO2 11/09/17 19:41 36.4 76 20 160/88 (112) 95 Room Air 11/09/17 17:00 95 Room Air 11/09/17 17:00 36.9 83 20 125/78 (94) 94 Room Air 11/09/17 16:07 36.8 74 16 95 11/09/17 16:00 Room Air 11/09/17 12:00 36.7 98 17 148/90 (109) 94 Room Air 11/09/17 12:00 Room Air 11/09/17 08:00 Room Air 11/09/17 08:00 36.4 64 17 163/90 (114) 98 Room Air 11/09/17 04:00 Nasal Cannula 2.0 11/09/17 03:45 36.8 60 18 159/87 (111) 98 Room Air 11/08/17 23:59 Nasal Cannula 2.0 11/08/17 23:05 36.6 62 19 146/88 (107) 98 Nasal Cannula 2.0 Physical Exam General Appearance: WD/WN, no apparent distress Neck: supple, no adenopathy Respiratory/Chest: chest non-tender, lungs clear, normal breath sounds Cardiovascular: regular rate, rhythm, no edema Abdomen: normal bowel sounds, non tender, soft Extremities: normal range of motion, non-tender Lymphatic: no adenopathy Laboratory Results Last 24 Hours Test 11/09/17 07:18 White Blood Count 8.18 K/uL Red Blood Count 4.55 M/uL Hemoglobin 14.0 g/dL Hematocrit 41.1 % Mean Corpuscular Volume 90.3 fL Mean Corpuscular Hemoglobin 30.8 pg Mean Corpuscular Hemoglobin Concent 34.1 g/dl RDW Standard Deviation 44.1 fL RDW Coefficient of Variation 13.4 % Platelet Count 62 K/uL Mean Platelet Volume 11.7 fL Sodium Level 138 mmol/L Potassium Level 3.4 mmol/L Chloride Level 109 mmol/L Carbon Dioxide Level 22 mmol/L Anion Gap 7.0 mmol/L Blood Urea Nitrogen 14 mg/dl Creatinine 1.02 mg/dl Est Creatinine Clear Calc Drug Dose 74.0 ml/min Estimated GFR () 85.9 Estimated GFR (Non- 74.1 BUN/Creatinine Ratio 14.1 Random Glucose 87 mg/dl Calcium Level 7.9 mg/dl Assessment and Plan 72 y/o M Hx ETOH abuse, COPD. The pt was admitted approximately one month prior and attended a 21 day rehab program following. Upon discharge he promptly resumed alcohol use. He has been on a 5 day binge, consuming at least a 5th of Vodka daily. He became ill earlier in the day, describing abdominal discomfort, nausea and 5 episodes of vomiting. He additionally c/o weakness and SOB which is chronic. He denies CP, fevers/rigors, diarrhea. He is exhibiting moderate withdrawal symptoms at the time of admission. Labs are consistent with dehydration. 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 Nausea and Vomiting: Likely ETOH-Related: - Appears to have resolved. advance diet as tolerated. COPD without Exacerbation: - PRN nebulizers Thrombocytopenia: Likely from ETOH Use/Liver Disease?: STABLE DVT Prophylaxis: SCDs Disposition: - Agreeing for rehab - case management following Continued [facility] stay due to: multiple IV medications needed
[2017-11-10] MEDS: LORAZEPAM INJ 1 MG in SYRINGE 0.5 ML IV PRN (00:07)
[2017-11-10 01:35] VITALS: BP 180/93
[2017-11-10] MEDS: HydrALAZINE HCL 20 MG/ML VIAL IV. PRN ×2 (01:43→21:41)
[2017-11-10] MEDS: MULTI-VITAMIN INFUSION INJ 10 ML, THIAMINE HCL INJ 100 MG, FoLIC ACID INJ 1 MG in SODIU... IV SCH ×3 (03:19→21:24)
[2017-11-10 04:24] VITALS: BP 136/73; PULSE 71
[2017-11-10] MEDS: CHLORDIAZEPOXIDE 25 MG CAP PO SCH ×3 (06:01→21:42)
[2017-11-10 06:47] LABS: HEMATOCRIT 41.6 % (42-52); MEAN CELL VOLUME 89.3 fL (80-100); MEAN CORPUSCULAR HEMOGLOBIN 30.7 pg (25-34); MEAN CORPUSCULAR HGB CONC 34.4 g/dl (32-36); PLATELET COUNT 53 K/uL (130-400); RED BLOOD COUNT 4.66 M/uL (4.7-6.1); WHITE BLOOD COUNT 6.66 K/uL (4.8-10.8)
[2017-11-10 07:18] LABS: CREATININE 0.79 mg/dl (0.60-1.40); POTASSIUM 3.1 mmol/L (3.5-5.1)
[2017-11-10] MEDS ORDERED: NURSING VERBAL MED ORDER ONE (07:30)
[2017-11-10 07:58] VITALS: BP 162/89; PULSE 70; TEMP 36.2; O2SAT 95
[2017-11-10] MEDS ORDERED: POTASSIUM CHLORIDE 10 MEQ TABCR PO ONE (08:00)
[2017-11-10] MEDS ORDERED: POTASSIUM CHLORIDE 20 MEQ TABCR PO ONE (08:00)
[2017-11-10] MEDS: METOPROLOL TARTRATE 25 MG TAB PO SCH ×3 (08:29→21:27)
[2017-11-10] MEDS: SERTRALINE HCL 100 MG TAB PO SCH (08:30)
[2017-11-10 09:34] VITALS: BP 125/70; PULSE 89
[2017-11-10 15:57] VITALS: BP 135/81; PULSE 73; TEMP 36.5; O2SAT 95
[2017-11-10] MEDS ORDERED: LORAZEPAM 1 MG TAB PO PRN (21:15)
[2017-11-10 21:21] VITALS: BP 162/87; PULSE 75
[2017-11-10] MEDS: DOXAZosin MESYLATE TAB 4 MG TAB PO SCH (21:25)
[2017-11-10] MEDS: POTASSIUM CHLORIDE 10 MEQ TABCR PO SCH (21:25)
[2017-11-11] VITALS (11 sets, daily range): BP systolic 138–208; BP diastolic 81–100; PULSE 70–91; TEMP 36.3–36.9; O2SAT 94–97
[2017-11-11 03:14] LABS: URINE APPEARANCE CLEAR (CLEAR); URINE BILIRUBIN NEG (NEG); URINE COLOR YELLOW; URINE NITRITE POS (NEG); URINE SPECIFIC GRAVITY 1.014 (1.000-1.030); UROBILINOGEN NEG (NEG); ZZURINE CULT IF INDIC CATH YES
[2017-11-11 03:19] LABS: MANUAL MICROSCOPIC REQUIRED? NO; REVIEW REQ? NO
[2017-11-11] MEDS: HydrALAZINE HCL 20 MG/ML VIAL IV. PRN ×2 (04:49→15:59)
[2017-11-11] MEDS: CEFTRIAXONE SOD INJ 1 GM in DEXTROSE 5% ADD-VANTAGE 50ML 50 ML IV SCH (04:50)
[2017-11-11] MEDS: LORAZEPAM INJ 1 MG in SYRINGE 0.5 ML IV PRN ×4 (05:16→16:52)
[2017-11-11] MEDS: CHLORDIAZEPOXIDE 25 MG CAP PO SCH (05:19)
--- NOTE | 2017-11-11 06:07 | Progress Note ---
Progress Note Date of Service Nov 11, 2017. Progress Note urinary frequency and retention (300cc post void) x 24 hours noted by RN, admission UA was positive for UTI however urine culture equivocal and no abx noted to be administered. UA repeat with cath and once again positive for UTI with nitrates pos. Rocephin initiated. Prostatis vs Uti? Considered addition of Tamsulosin but will defer to day teams reassessment as patient already on Doxazosin.
--- NOTE | 2017-11-11 07:00 | Progress Note ---
Subjective Date of Service: Nov 10, 2017. Subjective Pt evaluation today including: conversation w/ patient, physical exam, chart review Patient examined at 15:00 on 72 yo male in hospital for alcohol withdrawal. Patient reports feeling some mild improvement as his tremors and anxiety have decreased somewhat. Patient denies any nausea, vomiting, chest pain, abd. pain, diarrhea. Problem List Medical Problems: (1) Alcohol intoxication Status: Acute (2) COPD exacerbation Status: Acute (3) Fall Status: Acute (4) Head injury Status: Acute (5) Hypertension Status: Acute (6) Orthostatic dizziness Status: Acute (7) Scalp laceration Status: Acute Review of Systems All Other Systems: Reviewed and Negative Medications Current Inpatient Medications Medications (Trade) Dose Ordered Sig/Frances Route Start Time Stop Time Status Last Admin Dose Admin Lorazepam (Ativan Inj) 1 mg Q2H PRN IV 11/07/17 19:45 12/07/17 19:44 Lorazepam (Ativan Inj) 2 mg Q2H PRN IV 11/07/17 19:45 12/07/17 19:44 11/07/17 21:51 2 MG Chlordiazepoxide (Librium Cap) 25 mg Q8H PO 11/07/17 22:00 12/07/17 21:59 11/11/17 05:19 25 MG Metoprolol Tartrate (Lopressor Tab) 12.5 mg TID PO 11/08/17 09:00 12/08/17 08:59 11/10/17 21:27 12.5 MG Albuterol/ Ipratropium (Duoneb) 3 ml Q6H PRN INH 11/07/17 20:00 12/07/17 19:59 Doxazosin Mesylate (Cardura Tab) 4 mg HS PO 11/08/17 21:00 12/08/17 20:59 11/10/17 21:25 4 MG Sertraline HCl (Zoloft Tab) 100 mg DAILY PO 11/08/17 09:00 12/08/17 08:59 11/10/17 08:30 100 MG Multivitamins 10 ml/Thiamine HCl 100 mg/Folic Acid 1 mg/Sodium Chloride 1,011.2 ml @ 100 mls/ hr Q10H7M IV 11/08/17 09:00 12/08/17 08:59 11/10/17 21:24 100 MLS/HR Lorazepam 1 mg/ Syringe 1 ml @ 1 mls/min Q2H PRN IV 11/07/17 21:45 12/07/17 21:44 11/11/17 05:16 1 MLS/MIN Lorazepam 2 mg/ Syringe 2 ml @ 1 mls/min Q2H PRN IV 11/07/17 21:45 12/07/17 21:44 Lorazepam (Ativan Inj) PRN Dosing -Active Protocol Q1H PRN IV 11/07/17 23:45 12/07/17 23:44 11/08/17 03:28 2 MG Hydralazine HCl (HydrALAZINE INJ) 10 mg Q6 PRN IV. 11/08/17 08:45 12/08/17 08:44 11/11/17 04:49 10 MG Potassium Chloride (Klor-Con M10) 30 meq BID PO 11/10/17 21:00 11/11/17 21:01 11/10/17 21:25 30 MEQ Ceftriaxone Sodium 1 gm/ Dextrose 50 ml @ 100 mls/hr Q24H IV 11/11/17 05:00 11/16/17 04:59 11/11/17 04:50 100 MLS/HR Objective Vital Signs Date Time Temp Pulse Resp B/P (MAP) Pulse Ox O2 Delivery O2 Flow Rate FiO2 11/11/17 05:52 138/81 (100) 11/11/17 04:55 36.3 88 24 208/100 (136) 96 Room Air 11/11/17 00:30 Room Air 11/11/17 00:16 36.8 71 20 160/89 (112) 94 Room Air 11/10/17 21:21 75 162/87 (112) 11/10/17 15:57 36.5 73 18 135/81 (99) 95 Room Air 11/10/17 15:25 Room Air 11/10/17 09:34 89 125/70 (88) 11/10/17 08:00 Room Air 11/10/17 07:58 36.2 70 20 162/89 (113) 95 Physical Exam Comments: General Appearance: not in any acute distress Eyes: + abnormal sclerae exam (mild icterus) ENT: hearing grossly normal Neck: supple, no JVD, trachea midline Respiratory/Chest: lungs clear, normal breath sounds, no respiratory distress, no accessory muscle use Cardiovascular: regular rate, rhythm, no gallop, no murmur Abdomen: normal bowel sounds, non tender, soft Extremities: no pedal edema, no calf tenderness Neurologic/Psychiatric: alert, oriented x 3, + depressed affect, + pertinent finding (decreased tremors of b/l hands) Skin: normal color, warm/dry Laboratory Results Last 24 Hours Test 11/11/17 00:00 11/11/17 06:30 Urine Color YELLOW Urine Appearance CLEAR Urine pH 6.0 Urine Specific [place] 1.014 Urine Protein NEG Urine Glucose (UA) NEG Urine Ketones NEG Urine Occult Blood NEG Urine Nitrite POS Urine Bilirubin NEG Urine Urobilinogen NEG Urine Leukocyte Esterase NEG Urine WBC (Auto) 1-5 /hpf Urine RBC (Auto) 0-4 /hpf Urine Hyaline Casts (Auto) 0 /lpf Urine Epithelial Cells (Auto) 5-10 /lpf Urine Bacteria (Auto) 1+ Assessment and Plan 72 y/o M Hx ETOH abuse, COPD. The pt was admitted approximately one month prior and attended a 21 day rehab program following. Upon discharge he promptly resumed alcohol use. He has been on a 5 day binge, consuming at least a 5th of Vodka daily. He became ill earlier in the day, describing abdominal discomfort, nausea and 5 episodes of vomiting. He additionally c/o weakness and SOB which is chronic. He denies CP, fevers/rigors, diarrhea. He is exhibiting moderate withdrawal symptoms at the time of admission. Labs are consistent with dehydration. ETOH Abuse:going through withdrawal -Stable and improving. 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 will check in AM Nausea and Vomiting: Likely ETOH-Related: - Appears to have resolved. advance diet as tolerated. COPD without Exacerbation: - PRN nebulizers Thrombocytopenia: Likely from ETOH Use/Liver Disease?: STABLE DVT Prophylaxis: SCDs Disposition: - Agreeing for rehab - case management following Continued [facility] stay due to: multiple IV medications needed
[2017-11-11 07:30] LABS: HEMATOCRIT 42.2 % (42-52); MEAN CORPUSCULAR HGB CONC 34.8 g/dl (32-36); MEAN PLATELET VOLUME 12.3 fL (7.4-10.4); PLATELET COUNT 69 K/uL (130-400); RED BLOOD COUNT 4.74 M/uL (4.7-6.1); WHITE BLOOD COUNT 6.88 K/uL (4.8-10.8)
[2017-11-11] MEDS: MULTI-VITAMIN INFUSION INJ 10 ML, THIAMINE HCL INJ 100 MG, FoLIC ACID INJ 1 MG in SODIU... IV SCH (07:41)
[2017-11-11] MEDS: POTASSIUM CHLORIDE 10 MEQ TABCR PO SCH ×2 (07:42→21:10)
[2017-11-11] MEDS: METOPROLOL TARTRATE 25 MG TAB PO SCH ×3 (07:42→21:10)
[2017-11-11] MEDS: SERTRALINE HCL 100 MG TAB PO SCH (07:44)
[2017-11-11 07:49] LABS: CALCIUM 8.4 mg/dl (8.5-10.1); CREATININE 0.92 mg/dl (0.60-1.40); POTASSIUM 3.7 mmol/L (3.5-5.1)
--- NOTE | 2017-11-11 12:48 | Hospitalist Progress Note ---
Hospitalist Progress Note Date of Service Nov 11, 2017. (Sarina Loza PA-C) Subjective Pt evaluation today including: conversation w/ patient, physical exam, chart review, lab review, review of studies, review of inpatient medication list Patient seen and evaluated. No acute events overnight. Required 1 mg Ativan in later evening and 1 mg this AM. Complaining of urinary retention and feeling of the need to void but not going. Started Rocephin overnight and will continue at this time. He has had long standing issues with urination and follows with Dr. Villatoro. Was previously on Flomax but reports that it has not helped. Currently on Doxazosin 4 mg. Doesn't think he has tried Proscar but given this medication will take time to be effective would defer to outpatient. Reporting less anxiousness and improvement in tremors. Tolerating lunch on my visit without issue. Constitutional: No fever, No chills, No sweats Respiratory: No cough, No shortness of breath Cardiovascular: No chest pain, No palpitations Abdomen: No pain, No nausea, No vomiting, No diarrhea, No constipation Musculoskeletal: No swelling, No calf pain Male : + urinary frequency, + problem reported (retention - chronic) Psychiatric: + anxiety (improving), + substance abuse (Sarina Loza, LIZETH -C) Medications Current Inpatient Medications Medications (Trade) Dose Ordered Sig/Frances Route Start Time Stop Time Status Last Admin Dose Admin Lorazepam (Ativan Inj) 1 mg Q2H PRN IV 11/07/17 19:45 12/07/17 19:44 Lorazepam (Ativan Inj) 2 mg Q2H PRN IV 11/07/17 19:45 12/07/17 19:44 11/07/17 21:51 2 MG Metoprolol Tartrate (Lopressor Tab) 12.5 mg TID PO 11/08/17 09:00 12/08/17 08:59 11/11/17 07:42 12.5 MG Albuterol/ Ipratropium (Duoneb) 3 ml Q6H PRN INH 11/07/17 20:00 12/07/17 19:59 Doxazosin Mesylate (Cardura Tab) 4 mg HS PO 11/08/17 21:00 12/08/17 20:59 11/10/17 21:25 4 MG Sertraline HCl (Zoloft Tab) 100 mg DAILY PO 11/08/17 09:00 12/08/17 08:59 11/11/17 07:44 100 MG Multivitamins 10 ml/Thiamine HCl 100 mg/Folic Acid 1 mg/Sodium Chloride 1,011.2 ml @ 100 mls/ hr Q10H7M IV 11/08/17 09:00 12/08/17 08:59 11/11/17 07:41 100 MLS/HR Lorazepam 1 mg/ Syringe 1 ml @ 1 mls/min Q2H PRN IV 11/07/17 21:45 12/07/17 21:44 11/11/17 09:42 1 MLS/MIN Lorazepam 2 mg/ Syringe 2 ml @ 1 mls/min Q2H PRN IV 11/07/17 21:45 12/07/17 21:44 Lorazepam (Ativan Inj) PRN Dosing -Active Protocol Q1H PRN IV 11/07/17 23:45 12/07/17 23:44 11/08/17 03:28 2 MG Hydralazine HCl (HydrALAZINE INJ) 10 mg Q6 PRN IV. 11/08/17 08:45 12/08/17 08:44 11/11/17 04:49 10 MG Potassium Chloride (Klor-Con M10) 30 meq BID PO 11/10/17 21:00 11/11/17 21:01 11/11/17 07:42 30 MEQ Ceftriaxone Sodium 1 gm/ Dextrose 50 ml @ 100 mls/hr Q24H IV 11/11/17 05:00 11/16/17 04:59 11/11/17 04:50 100 MLS/HR Chlordiazepoxide (Librium Cap) 10 mg Q8H PO 11/11/17 14:00 12/07/17 21:59 (Sarina Loza, DARLENE) Objective Vital Signs Date Time Temp Pulse Resp B/P (MAP) Pulse Ox O2 Delivery O2 Flow Rate FiO2 11/11/17 09:42 88 155/92 (113) 11/11/17 07:39 Room Air 11/11/17 06:56 36.4 85 17 175/95 (121) 96 Room Air 11/11/17 05:52 138/81 (100) 11/11/17 04:55 36.3 88 24 208/100 (136) 96 Room Air 11/11/17 00:30 Room Air 11/11/17 00:16 36.8 71 20 160/89 (112) 94 Room Air 11/10/17 21:21 75 162/87 (112) 11/10/17 15:57 36.5 73 18 135/81 (99) 95 Room Air 11/10/17 15:25 Room Air (Sarina Loza PA-C) Physical Exam General Appearance: WD/WN, no apparent distress Eyes: + pertinent finding (mildly icteric sclera) ENT: hearing grossly normal Neck: supple, no JVD, trachea midline Respiratory/Chest: lungs clear, normal breath sounds, no respiratory distress, no accessory muscle use Cardiovascular: regular rate, rhythm, no gallop, no murmur Abdomen: normal bowel sounds, non tender, soft Extremities: no pedal edema, no calf tenderness Neurologic/Psychiatric: alert, normal mood/affect, oriented x 3, + pertinent finding (mild hand tremor) Skin: normal color, warm/dry (Sarina Loza, LIZETH-C) Laboratory Results Last 24 Hours Test 11/11/17 00:00 11/11/17 06:30 Urine Color YELLOW Urine Appearance CLEAR Urine pH 6.0 Urine Specific [place] 1.014 Urine Protein NEG Urine Glucose (UA) NEG Urine Ketones NEG Urine Occult Blood NEG Urine Nitrite POS Urine Bilirubin NEG Urine Urobilinogen NEG Urine Leukocyte Esterase NEG Urine WBC (Auto) 1-5 /hpf Urine RBC (Auto) 0-4 /hpf Urine Hyaline Casts (Auto) 0 /lpf Urine Epithelial Cells (Auto) 5-10 /lpf Urine Bacteria (Auto) 1+ White Blood Count 6.88 K/uL Red Blood Count 4.74 M/uL Hemoglobin 14.7 g/dL Hematocrit 42.2 % Mean Corpuscular Volume 89.0 fL Mean Corpuscular Hemoglobin 31.0 pg Mean Corpuscular Hemoglobin Concent 34.8 g/dl RDW Standard Deviation 42.7 fL RDW Coefficient of Variation 13.1 % Platelet Count 69 K/uL Mean Platelet Volume 12.3 fL Sodium Level 138 mmol/L Potassium Level 3.7 mmol/L Chloride Level 107 mmol/L Carbon Dioxide Level 21 mmol/L Anion Gap 10.0 mmol/L Blood Urea Nitrogen 11 mg/dl Creatinine 0.92 mg/dl Est Creatinine Clear Calc Drug Dose 82.0 ml/min Estimated GFR () 97.3 Estimated GFR (Non- 84.0 BUN/Creatinine Ratio 12.0 Random Glucose 90 mg/dl Calcium Level 8.4 mg/dl (Sarina Loza, DATC) Assessment and Plan Mr. Sauceda is a 72 y/o male who [facility] but promptly resumed drinking. Went on 5 day binge consuming 5th of vodka daily where with withdrawal symptoms and abdominal pain/nausea/vomiting ETOH Abuse with Withdrawal: IMPROVING - Tolerating diet and will stop further fluids - give MVI, Folic 1 mg, and Thiamine 100 mg daily - Continue AWSS protocol with PRN Ativan - requiring less dosing - Taper Librium - continue with 10 mg TID and continue to taper Chronic Urinary Retention with BPH: - Previously on Flomax but reports minimal improvement - UTI possible? Will treat with Rocephin and monitor - Would defer Proscar to outpatient given no added benefit immediately - follows with Dr. Villatoro - Bladder scan and straight cath PRN Hypokalemia: RESOLVED Nausea/Vomiting: RESOLVED - likely due to ETOH use COPD without Exacerbation: - Nebulizers PRN Thrombocytopenia: STABLE DVT Prophylaxis: SCDs since he is fall risk Disposition: - Agreeing for rehab - case management following - discussing with patient's binder caser tomorrow Continued [facility] stay due to: multiple IV medications needed Discharge planning: other (ETOH rehab) (Sarina Loza, PA-C) i personally examined pt and verified all carson points w Ubaldo Loza PAC feeling weak and peeing all the time angry with me for having him go to [facility] last time notes that he doesn't want to leave the hospital until his voiding situation is better and he's not as weak. wants to achieve this with rest. vitals noted nad breathing unlabored no pallor or icterus EtOH abuse and withdrawal - appearing out of risk w time since last drink and general lack of symptoms. at this point refusing rehab again BPH w LUTS - d/w urology and can see as outpt, as above noted will give trial to flomax instead of doxazosin, although doubt it will make a big impact. can start proscar, most importantly will need outpt urology f/u. d/w pt quite frankly thought that it is unrealistic for him to expect much of any (let alone dramatic) change in his LUTS without urology involvement, which by medical necessity and confirmed by informal discussion with urology is as outpt deconditioning/weakness - PT/OT, d/w pt re rehab again and he fairly angrily refused, noted that he wants to rest to get stronger, states that resting in bed and watching saturday night football will make him stronger. d/w him that this, too, is fairly unrealistic, and if he's too weak right now staying in bed will only make him weaker. otherwise as above (Rosas Licea, D.O.)
[2017-11-11] MEDS: CHLORDIAZEPOXIDE 10 MG CAP PO SCH ×2 (14:02→21:17)
[2017-11-11] MEDS: DOXAZosin MESYLATE TAB 4 MG TAB PO SCH (21:09)
[2017-11-12] VITALS (7 sets, daily range): BP systolic 92–180; BP diastolic 51–99; PULSE 72–84; TEMP 36.4–36.7; O2SAT 95–97
[2017-11-12] MEDS: HydrALAZINE HCL 20 MG/ML VIAL IV. PRN (04:48)
[2017-11-12] MEDS: CEFTRIAXONE SOD INJ 1 GM in DEXTROSE 5% ADD-VANTAGE 50ML 50 ML IV SCH (04:48)
[2017-11-12] MEDS: CHLORDIAZEPOXIDE 10 MG CAP PO SCH ×3 (05:10→21:16)
[2017-11-12] MEDS: SERTRALINE HCL 100 MG TAB PO SCH (07:59)
[2017-11-12] MEDS: METOPROLOL TARTRATE 25 MG TAB PO SCH ×3 (07:59→21:16)
[2017-11-12] MEDS: THIAMINE HCL 100 MG TAB PO SCH (07:59)
[2017-11-12] MEDS: MULTIVITAMIN TAB PO SCH (07:59)
[2017-11-12] MEDS ORDERED: ONDANSETRON INJ 2 MG/ML 2 ML VIAL IV STA (11:40)
[2017-11-12] MEDS ORDERED: ONDANSETRON INJ 2 MG/ML 2 ML VIAL IV. PRN (11:45)
--- NOTE | 2017-11-12 14:59 | Hospitalist Progress Note ---
Hospitalist Progress Note Date of Service Nov 12, 2017. (Sarina Loza PA-C) Subjective Pt evaluation today including: conversation w/ patient, physical exam, chart review, lab review, review of studies, review of inpatient medication list Patient seen and evaluated. Reporting poor sleep due to urinary retention requiring straight cath. Discussed his long-term issues with urination due to BPH. States he hasn't discussed any procedures with Urology but encouraged to follow-up as outpatient and he verbalized understanding. Encouraged him to try and urinate normally. Promoted going to the toilet and standing up but reinforced the need to call for assistance to reduce falls. Also complaining of generalized weakness. Emphasized the importance of safely ambulating and even simple things of sitting in the chair. Reporting that he knows his weakness has been a progressive thing. Is complaining of nausea and did order a dose of Zofran. Said he didn't have much of an appetite today. Continues to verify that Librium and Ativan are ordered. Asked for an extra Librium to sleep. Explained that he is on a protocol and has scheduled Librium three times a day and Ativan is based on evaluations for withdrawal. States he feels anxious but is objectively calm and no tremor noted. Constitutional: No fever, No chills Abdomen: + nausea, No pain, No vomiting, No diarrhea, No constipation Musculoskeletal: No swelling, No calf pain Male : + problem reported (urinary retention), No dysuria Psychiatric: + anxiety Heme: No abnormal bleeding/bruising Skin: No rash (Sarina Loza, DATC) Medications Current Inpatient Medications Medications (Trade) Dose Ordered Sig/Frances Route Start Time Stop Time Status Last Admin Dose Admin Lorazepam (Ativan Inj) 1 mg Q2H PRN IV 11/07/17 19:45 12/07/17 19:44 Lorazepam (Ativan Inj) 2 mg Q2H PRN IV 11/07/17 19:45 12/07/17 19:44 11/07/17 21:51 2 MG Metoprolol Tartrate (Lopressor Tab) 12.5 mg TID PO 11/08/17 09:00 12/08/17 08:59 11/12/17 07:59 12.5 MG Albuterol/ Ipratropium (Duoneb) 3 ml Q6H PRN INH 11/07/17 20:00 1/6/18 19:59 Doxazosin Mesylate (Cardura Tab) 4 mg HS PO 11/08/17 21:00 12/08/17 20:59 11/11/17 21:09 4 MG Sertraline HCl (Zoloft Tab) 100 mg DAILY PO 11/08/17 09:00 12/08/17 08:59 11/12/17 07:59 100 MG Lorazepam 1 mg/ Syringe 1 ml @ 1 mls/min Q2H PRN IV 11/07/17 21:45 12/07/17 21:44 11/11/17 16:52 1 MLS/MIN Lorazepam 2 mg/ Syringe 2 ml @ 1 mls/min Q2H PRN IV 11/07/17 21:45 12/07/17 21:44 Lorazepam (Ativan Inj) PRN Dosing -Active Protocol Q1H PRN IV 11/07/17 23:45 12/07/17 23:44 11/08/17 03:28 2 MG Hydralazine HCl (HydrALAZINE INJ) 10 mg Q6 PRN IV. 11/08/17 08:45 12/08/17 08:44 11/12/17 04:48 10 MG Ceftriaxone Sodium 1 gm/ Dextrose 50 ml @ 100 mls/hr Q24H IV 11/11/17 05:00 11/16/17 04:59 11/12/17 04:48 100 MLS/HR Chlordiazepoxide (Librium Cap) 10 mg Q8H PO 11/11/17 14:00 12/07/17 21:59 11/12/17 13:35 10 MG Multivitamins (Multivitamin Tab) 1 tab QAM PO 11/12/17 09:00 12/12/17 08:59 11/12/17 07:59 1 TAB Folic Acid (Folvite Tab) 1 mg QAM PO 11/12/17 09:00 12/12/17 08:59 11/12/17 08:00 1 MG Thiamine HCl (Vitamin B-1 Tab) 100 mg QAM PO 11/12/17 09:00 12/12/17 08:59 11/12/17 07:59 100 MG Ondansetron HCl (Zofran Inj) 4 mg Q6H PRN IV. 11/12/17 11:45 12/12/17 11:44 (Sarina Loza, PA-C) Objective Vital Signs Date Time Temp Pulse Resp B/P (MAP) Pulse Ox O2 Delivery O2 Flow Rate FiO2 11/12/17 13:32 84 92/51 (65) 11/12/17 08:00 Room Air 11/12/17 07:10 36.6 72 18 120/66 (84) 95 Room Air 11/12/17 04:43 36.4 77 20 180/99 (126) 97 Room Air 11/12/17 00:00 95 Room Air 11/11/17 22:37 75 154/88 (110) 11/11/17 22:32 36.6 74 20 163/93 (116) 95 Room Air 11/11/17 21:15 75 175/93 (120) 11/11/17 18:55 36.4 91 18 160/88 (112) 97 Room Air 11/11/17 16:00 Room Air 11/11/17 15:32 36.9 70 20 159/92 (114) 96 Room Air (Sarina Loza PA-C) Physical Exam General Appearance: no apparent distress Respiratory/Chest: lungs clear, normal breath sounds, no respiratory distress, no accessory muscle use Cardiovascular: regular rate, rhythm, no gallop, no murmur Abdomen: normal bowel sounds, non tender, soft Extremities: no pedal edema, no calf tenderness Neurologic/Psychiatric: alert, oriented x 3 (Sarina Loza, PA-C) Assessment and Plan Mr. Sauceda is a 72 y/o male who [facility] but promptly [facility]. Went on 5 day binge consuming 5th of vodka daily where with withdrawal symptoms and abdominal pain/nausea/vomiting ETOH Abuse with Withdrawal: IMPROVING - Tolerating diet but is reporting nausea today - give MVI, Folic 1 mg, and Thiamine 100 mg daily - Continue AWSS protocol with PRN Ativan - requiring less dosing - last dose afternoon - Taper Librium - continue with 10 mg TID and continue to taper Chronic Urinary Retention with BPH: - Previously on Flomax but reports minimal improvement and states Doxazosin normally works for him - UTI possible? Will treat with Rocephin and monitor - cx with staph species and could easily be contamination - Would defer Proscar to outpatient given no added benefit immediately - follows with Dr. Villatoro - Bladder scan and straight cath PRN Hypokalemia: RESOLVED Nausea/Vomiting: - likely due to ETOH use COPD without Exacerbation: - Nebulizers PRN Thrombocytopenia: STABLE DVT Prophylaxis: SCDs since he is fall risk Disposition: - No longer wanting inpatient ETOH but states he will do "aggressive" outpatient ETOH rehab - Is agreeing to see what services he could qualify for including consideration for acute rehab -- Patient did have acceptance on previous admission but unfortunately did not go and will need to consider transportation to facilitate arrival (Sarina Loza, PA-C) i personally examined pt and verified all carson points w A Dago PAC still w voiding issues vitals noted nad breathing unlabored BPH w LUTS - meds, urology referral, cath prn deconditioning - PT/OT otherwise as above (Rosas Licea D.O.)
[2017-11-12] MEDS: DOXAZosin MESYLATE TAB 4 MG TAB PO SCH (21:16)
[2017-11-13] MEDS: CEFTRIAXONE SOD INJ 1 GM in DEXTROSE 5% ADD-VANTAGE 50ML 50 ML IV SCH (05:12)
[2017-11-13] MEDS: CHLORDIAZEPOXIDE 10 MG CAP PO SCH (05:34)
[2017-11-13 06:53] VITALS: BP 183/105; PULSE 83; TEMP 36.4; O2SAT 96
[2017-11-13] MEDS: HydrALAZINE HCL 20 MG/ML VIAL IV. PRN (06:56)
[2017-11-13] MEDS: THIAMINE HCL 100 MG TAB PO SCH (07:18)
[2017-11-13] MEDS: SERTRALINE HCL 100 MG TAB PO SCH (07:18)
[2017-11-13] MEDS: METOPROLOL TARTRATE 25 MG TAB PO SCH ×3 (07:18→20:32)
[2017-11-13] MEDS: MULTIVITAMIN TAB PO SCH (07:18)
[2017-11-13] MEDS: LORAZEPAM INJ 1 MG in SYRINGE 0.5 ML IV PRN ×2 (07:19→21:00)
[2017-11-13 07:21] VITALS: BP 132/74; PULSE 67
[2017-11-13] MEDS: CHLORDIAZEPOXIDE 5 MG CAP PO SCH ×2 (08:43→20:45)
[2017-11-13 14:19] VITALS: BP 134/79; PULSE 90
[2017-11-13 15:25] VITALS: BP 154/83; PULSE 79; TEMP 36.9; O2SAT 95
[2017-11-13 16:00] VITALS: O2SAT 95
--- NOTE | 2017-11-13 16:45 | Hospitalist Progress Note ---
Hospitalist Progress Note Date of Service Nov 13, 2017. (Sarina Loza PA-C) Subjective Pt evaluation today including: conversation w/ patient, physical exam, chart review, review of inpatient medication list Patient seen and evaluated. Reporting that he is feeling better and urinary symptoms improving. States he hasn't had great sleep because of urinary issues. States he still is anxious but relates that he does have chronic issues with this. No further nausea today but is not very motivated to move or leave the hospital. [facility]. Is in agreement for outpatient appointments with the [place] and outpatient ETOH help. Have appointments set for . Discussed with increasing Doxazosin to 8 mg daily and will try this as blood pressure would allow it. Outpatient urology appt. established Constitutional: No fever, No chills Respiratory: No shortness of breath Cardiovascular: No chest pain Abdomen: No pain, No nausea, No vomiting, No diarrhea, No constipation Musculoskeletal: No swelling, No calf pain Male : + problem reported (retention but improving), No dysuria Psychiatric: + anxiety (Sarina Loza, DATC) Medications Current Inpatient Medications Medications (Trade) Dose Ordered Sig/Frances Route Start Time Stop Time Status Last Admin Dose Admin Lorazepam (Ativan Inj) 1 mg Q2H PRN IV 11/07/17 19:45 12/07/17 19:44 Lorazepam (Ativan Inj) 2 mg Q2H PRN IV 11/07/17 19:45 12/07/17 19:44 11/07/17 21:51 2 MG Metoprolol Tartrate (Lopressor Tab) 12.5 mg TID PO 11/08/17 09:00 12/08/17 08:59 11/13/17 14:21 12.5 MG Albuterol/ Ipratropium (Duoneb) 3 ml Q6H PRN INH 11/07/17 20:00 12/07/17 19:59 Sertraline HCl (Zoloft Tab) 100 mg DAILY PO 11/08/17 09:00 12/08/17 08:59 11/13/17 07:18 100 MG Lorazepam 1 mg/ Syringe 1 ml @ 1 mls/min Q2H PRN IV 11/07/17 21:45 12/07/17 21:44 11/13/17 07:19 1 MLS/MIN Lorazepam 2 mg/ Syringe 2 ml @ 1 mls/min Q2H PRN IV 11/07/17 21:45 12/07/17 21:44 Lorazepam (Ativan Inj) PRN Dosing -Active Protocol Q1H PRN IV 11/07/17 23:45 12/07/17 23:44 11/08/17 03:28 2 MG Hydralazine HCl (HydrALAZINE INJ) 10 mg Q6 PRN IV. 11/08/17 08:45 12/08/17 08:44 11/13/17 06:56 10 MG Multivitamins (Multivitamin Tab) 1 tab QAM PO 11/12/17 09:00 12/12/17 08:59 11/13/17 07:18 1 TAB Folic Acid (Folvite Tab) 1 mg QAM PO 11/12/17 09:00 12/12/17 08:59 11/13/17 07:18 1 MG Thiamine HCl (Vitamin B-1 Tab) 100 mg QAM PO 11/12/17 09:00 12/12/17 08:59 11/13/17 07:18 100 MG Ondansetron HCl (Zofran Inj) 4 mg Q6H PRN IV. 11/12/17 11:45 12/12/17 11:44 Chlordiazepoxide (Librium Cap) 5 mg BID PO 11/13/17 09:00 12/07/17 21:59 11/13/17 08:43 5 MG Doxazosin Mesylate (Cardura Tab) 8 mg HS PO 11/13/17 21:00 12/08/17 20:59 (Sarina Loza, DATC) Objective Vital Signs Date Time Temp Pulse Resp B/P (MAP) Pulse Ox O2 Delivery O2 Flow Rate FiO2 11/13/17 15:25 36.9 79 20 154/83 (106) 95 Room Air 11/13/17 14:19 90 134/79 (97) 11/13/17 08:00 Room Air 11/13/17 07:21 67 132/74 (93) 11/13/17 06:53 36.4 83 18 183/105 (131) 96 Room Air 11/13/17 00:15 Room Air 11/12/17 22:32 36.7 78 20 148/79 (102) 96 Room Air 11/12/17 21:17 78 154/88 (110) (Sarina Loza PA-C) Physical Exam General Appearance: WD/WN, no apparent distress Respiratory/Chest: lungs clear, normal breath sounds, no respiratory distress, no accessory muscle use Cardiovascular: regular rate, rhythm, no gallop, no murmur Abdomen: normal bowel sounds, non tender, soft Neurologic/Psychiatric: no motor/sensory deficits, alert, oriented x 3 Skin: normal color, warm/dry (Sarina Loza, DATC) Assessment and Plan Mr. Sauceda is a 72 y/o male who [facility] but promptly [facility]. Went on 5 day binge consuming 5th of vodka daily where with withdrawal symptoms and abdominal pain/nausea/vomiting ETOH Abuse with Withdrawal: IMPROVING - MVI, Folic 1 mg, and Thiamine 100 mg daily - Continue AWSS protocol with PRN Ativan - only required 1 mg today and appears to be more from underlying chronic anxiety instead of withdrawal - Librium 5 mg BID - last dose tonight on 11/13 Chronic Urinary Retention with BPH: - Previously on Flomax but reports minimal improvement and states Doxazosin normally works for him - will increase to 8 mg daily as BP will tolerate - Cx with MRSA however urinary symptoms are chronic and improving currently; afebrile and without leukocytosis; possible skin contamination of sample? - Would defer Proscar to outpatient given no added benefit immediately; possible need for TURP?- follows with Dr. Villatoro - Bladder scan and straight cath PRN Hypokalemia: RESOLVED Nausea/Vomiting: RESOLVED - likely due to ETOH use COPD without Exacerbation: - Nebulizers PRN Thrombocytopenia: STABLE DVT Prophylaxis: SCDs since he is fall risk Disposition: - No longer wanting inpatient ETOH but states he will do outpatient ETOH rehab - O/P appointments set for 11/15 plan for D/C tomorrow; not highly motivated for D/C Discharge planning: home with home health (Sarina Loza, DATC) i personally examined pt and verified all carson points w Ubaldo Loza PAC feeling better voiding a ltitle better hoping to get home tomorrow vitals noted nad breathing unlabored BPH w LUTS - increase doxazosin weakness - ongiong increase activity hopefully home tomorrow (Rosas Licea D.O.)
[2017-11-13 20:28] VITALS: BP 125/72; PULSE 79; TEMP 36.3; O2SAT 98
[2017-11-13] MEDS: DOXAZosin MESYLATE TAB 4 MG TAB PO SCH (20:33)
[2017-11-14] VITALS (7 sets, daily range): BP systolic 115–171; BP diastolic 73–97; PULSE 66–76; TEMP 36.5–36.9; O2SAT 92–97
[2017-11-14 06:09] LABS: HEMATOCRIT 40.4 % (42-52); MEAN CORPUSCULAR HEMOGLOBIN 31.1 pg (25-34); MEAN CORPUSCULAR HGB CONC 34.2 g/dl (32-36); RED BLOOD COUNT 4.44 M/uL (4.7-6.1); WHITE BLOOD COUNT 6.83 K/uL (4.8-10.8)
[2017-11-14 06:37] LABS: CALCIUM 8.5 mg/dl (8.5-10.1); POTASSIUM 3.9 mmol/L (3.5-5.1)
[2017-11-14 06:45] LABS: MEAN PLATELET VOLUME 10.2 fL (7.4-10.4); PLATELET COUNT 96 K/uL (130-400)
[2017-11-14] MEDS: SERTRALINE HCL 100 MG TAB PO SCH (07:19)
[2017-11-14] MEDS: THIAMINE HCL 100 MG TAB PO SCH (07:19)
[2017-11-14] MEDS: MULTIVITAMIN TAB PO SCH (07:19)
[2017-11-14] MEDS: METOPROLOL TARTRATE 25 MG TAB PO SCH ×3 (07:20→20:16)
[2017-11-14] MEDS ORDERED: THM100 PO (08:49)
[2017-11-14] MEDS ORDERED: DOXA4TAB5 PO (08:49)
[2017-11-14] MEDS ORDERED: MULT-890 PO (08:49)
[2017-11-14] MEDS ORDERED: FLV1 PO (08:49)
[2017-11-14] MEDS ORDERED: LPR25 PO (08:49)
--- NOTE | 2017-11-14 14:43 | Hospitalist Progress Note ---
Hospitalist Progress Note Date of Service Nov 14, 2017. (Sarina Loza PA-C) Subjective Pt evaluation today including: conversation w/ patient, physical exam, chart review, lab review, review of studies, conversation w/ edi consultant, review of inpatient medication list Patient seen and evaluated. No acute events overnight. Reporting feeling better. Complains of chronic anxiety but feeling better. Urinary problems resolved and tolerating higher dose of Doxazosin. Reporting needing to get his heat turned back on and his carson from his landlord. Agreeing for D/C tomorrow Discussed with case management and transport will pick him up at 0845 on 11/15 to go [facility] and then be transported home. Constitutional: No fever, No chills Respiratory: No cough, No shortness of breath Cardiovascular: No chest pain Abdomen: No pain, No nausea, No vomiting, No diarrhea, No constipation Skin: No rash (Sarina Loza PA-C) Medications Current Inpatient Medications Medications (Trade) Dose Ordered Sig/Frances Route Start Time Stop Time Status Last Admin Dose Admin Lorazepam (Ativan Inj) 1 mg Q2H PRN IV 11/07/17 19:45 12/07/17 19:44 Lorazepam (Ativan Inj) 2 mg Q2H PRN IV 11/07/17 19:45 12/07/17 19:44 11/07/17 21:51 2 MG Metoprolol Tartrate (Lopressor Tab) 12.5 mg TID PO 11/08/17 09:00 12/08/17 08:59 11/14/17 13:36 12.5 MG Albuterol/ Ipratropium (Duoneb) 3 ml Q6H PRN INH 11/07/17 20:00 12/07/17 19:59 Sertraline HCl (Zoloft Tab) 100 mg DAILY PO 11/08/17 09:00 12/08/17 08:59 11/14/17 07:19 100 MG Lorazepam 1 mg/ Syringe 1 ml @ 1 mls/min Q2H PRN IV 11/07/17 21:45 12/07/17 21:44 11/13/17 21:00 1 MLS/MIN Lorazepam 2 mg/ Syringe 2 ml @ 1 mls/min Q2H PRN IV 11/07/17 21:45 12/07/17 21:44 Lorazepam (Ativan Inj) PRN Dosing -Active Protocol Q1H PRN IV 11/07/17 23:45 12/07/17 23:44 11/08/17 03:28 2 MG Hydralazine HCl (HydrALAZINE INJ) 10 mg Q6 PRN IV. 11/08/17 08:45 12/08/17 08:44 11/13/17 06:56 10 MG Multivitamins (Multivitamin Tab) 1 tab QAM PO 11/12/17 09:00 12/12/17 08:59 11/14/17 07:19 1 TAB Folic Acid (Folvite Tab) 1 mg QAM PO 11/12/17 09:00 12/12/17 08:59 11/14/17 07:20 1 MG Thiamine HCl (Vitamin B-1 Tab) 100 mg QAM PO 11/12/17 09:00 12/12/17 08:59 11/14/17 07:19 100 MG Ondansetron HCl (Zofran Inj) 4 mg Q6H PRN IV. 11/12/17 11:45 12/12/17 11:44 Doxazosin Mesylate (Cardura Tab) 8 mg HS PO 11/13/17 21:00 12/08/17 20:59 11/13/17 20:33 8 MG (Sarina Loza PA-C) Objective Vital Signs Date Time Temp Pulse Resp B/P (MAP) Pulse Ox O2 Delivery O2 Flow Rate FiO2 11/14/17 13:35 76 149/86 (107) 11/14/17 08:00 Room Air 11/14/17 07:56 36.6 69 18 115/73 (87) 96 Room Air 11/14/17 06:21 36.5 70 20 122/73 (89) 92 Room Air 11/14/17 00:15 Room Air 11/14/17 00:00 36.5 66 20 155/91 (112) 97 Room Air 11/13/17 20:28 36.3 79 20 125/72 (89) 98 Room Air 2.0 11/13/17 16:00 95 Room Air 11/13/17 15:25 36.9 79 20 154/83 (106) 95 Room Air (Sarina Loza PA-C) Physical Exam General Appearance: WD/WN, no apparent distress Respiratory/Chest: lungs clear, normal breath sounds, no respiratory distress, no accessory muscle use Cardiovascular: regular rate, rhythm, no gallop, no murmur Abdomen: normal bowel sounds, non tender, soft Neurologic/Psychiatric: alert, oriented x 3 Skin: normal color, warm/dry (Sarina Loza PA-C) Laboratory Results Last 24 Hours Test 11/14/17 05:48 White Blood Count 6.83 K/uL Red Blood Count 4.44 M/uL Hemoglobin 13.8 g/dL Hematocrit 40.4 % Mean Corpuscular Volume 91.0 fL Mean Corpuscular Hemoglobin 31.1 pg Mean Corpuscular Hemoglobin Concent 34.2 g/dl RDW Standard Deviation 45.6 fL RDW Coefficient of Variation 13.9 % Platelet Count 96 K/uL Mean Platelet Volume 10.2 fL Sodium Level 134 mmol/L Potassium Level 3.9 mmol/L Chloride Level 105 mmol/L Carbon Dioxide Level 24 mmol/L Anion Gap 5.0 mmol/L Blood Urea Nitrogen 16 mg/dl Creatinine 1.00 mg/dl Est Creatinine Clear Calc Drug Dose 75.4 ml/min Estimated GFR () 88.0 Estimated GFR (Non- 75.9 BUN/Creatinine Ratio 16.0 Random Glucose 92 mg/dl Calcium Level 8.5 mg/dl (Sarina Loza PA-C) Assessment and Plan Mr. Sauceda is a 72 y/o male who [facility] but [facility]. Went on 5 day binge consuming 5th of vodka daily where with withdrawal symptoms and abdominal pain/nausea/vomiting ETOH Abuse with Withdrawal: IMPROVING - MVI, Folic 1 mg, and Thiamine 100 mg daily - Continue AWSS protocol and completed Librium taper Chronic Urinary Retention with BPH: IMPROVING - Tolerating increased Doxazosin at 8 mg daily and will continue - outpatient appt with Dr. Villatoro for 11/29 - Bladder scan and straight cath PRN Hypokalemia: RESOLVED Nausea/Vomiting: RESOLVED - likely due to ETOH use COPD without Exacerbation: - Nebulizers PRN Thrombocytopenia: STABLE DVT Prophylaxis: SCDs since he is fall risk Disposition: - Reporting that he needs to touch base with landlord for house carson and have heat turned back on - Requesting to be picked up from hospital tomorrow for outpatient appointments with the [place] - plan for D/C tomorrow before 45 Discharge planning: home (Sarina Loza, PA-C) i personally examined pt and verified all carson points w A Dago PAC feeling a little better can't go home today no way in his house promises he can tomorrow vitals noted nad breathing unlabored EtOH withdrawal resolved BPH w LUTS - improving some but needs outpt urology - arranged weakness - improving anticipate discharge tomorrow (Rosas Licea D.O.)
--- NOTE | 2017-11-14 14:53 | Discharge Instructions ---
Discharge Instructions Date of Service Nov 14, 2017. Admission Reason for Admission: Delirium Tremens Discharge Discharge Diagnosis / Problem: Alcohol Withdrawal Discharge Goals Goal(s): Decrease discomfort, Improve function, Increase independence Activity Recommendations Activity Limitations: resume your previous activity . Instructions / Follow-Up Instructions / Follow-Up Alcohol Use: - Please DO NOT drink alcohol and reach out to someone if you feel the desire to do this. - [facility] and to help establish outpatient alcohol rehab - Continue the multivitamin, folic acid, and thiamine to promote overall good nutrition Urinary Retention: - A prescription was given for Doxazosin 8 mg which is an increase in your normal amount to help promote good urinary habits - This is a chronic issue and you should follow-up with Dr. Villatoro to discuss ongoing treatment as an enlarged prostate is causing your urinary problems High Blood Pressure: - You were started on Metoprolol as your blood pressure has remained high when looking at your past hospital encounters. - It is important to maintain your blood pressure to prevent complications such as heart issues and stroke - Please discuss with your family doctor about ongoing treatment and monitoring Current Hospital Diet Patient's current hospital diet: Regular Diet Discharge Diet Recommended Diet: Regular Diet Pending Studies Studies pending at discharge: no Medical Emergencies . Who to Call and When: Medical Emergencies: If at any time you feel your situation is an emergency, please call 911 immediately. . Non-Emergent Contact Non-Emergency issues call your: Primary Care Provider Call Non-Emergent contact if: you have a fever, your pain is concerning you, you have any medication questions . . "Provider Documentation" section prepared by Sarina Loza. . VTE Core Measure Inpt VTE Proph given/why not?: SCD's
[2017-11-14] MEDS: DOXAZosin MESYLATE TAB 4 MG TAB PO SCH (20:16)
[2017-11-15 02:20] VITALS: BP 171/97; PULSE 69; TEMP 36.9; O2SAT 96
[2017-11-15] MEDS: SERTRALINE HCL 100 MG TAB PO SCH (07:41)
[2017-11-15] MEDS: THIAMINE HCL 100 MG TAB PO SCH (07:41)
[2017-11-15] MEDS: METOPROLOL TARTRATE 25 MG TAB PO SCH (07:41)
[2017-11-15] MEDS: MULTIVITAMIN TAB PO SCH (07:41)
[2017-11-15 07:51] VITALS: BP 131/77; PULSE 63; TEMP 36.7; O2SAT 94
[2017-11-15] MEDS ORDERED: FINA5TAB4 PO (08:06)
--- NOTE | 2017-11-15 17:35 | Discharge Summary ---
Discharge Summary Date of Service Nov 15, 2017. Discharge Summary Admission Date: Nov 07, 2017 at 19:38 Discharge Date: Nov 15, 2017 Discharge Disposition: Home with services Principal Diagnosis: EtOH withdrawal Medication Reconciliation New Medications: Finasteride (Proscar) 5 Mg Tab 1 TAB PO DAILY for 90 Days, #90 TAB 1 Refill Folic Acid (Folic Acid) 1 Mg Tab 1 MG PO QAM for 30 Days, #30 TAB Metoprolol Tartrate (Lopressor) 25 Mg Tab 12.5 MG PO BID for 14 Days, #14 TAB Multiple Vitamin (Daily-Robert) 1 Tab Tab 1 TAB PO QAM for 30 Days, #30 TAB Thiamine HCl (Vitamin B-1) 100 Mg Tab 100 MG PO QAM for 30 Days, #30 TAB Changed Medications: Doxazosin Mesylate (Doxazosin) 4 Mg Tab 8 MG PO HS for 30 Days (Changed from: 4 MG) Continued Medications: Mirtazapine (Mirtazapine) 15 Mg Tab 30 MG PO HS Sertraline (Zoloft) 100 Mg Tab 100 MG PO DAILY, TAB Discharge Exam Physical Exam: General Appearance: no apparent distress Eyes: EOMI ENT: hearing grossly normal Neck: trachea midline Respiratory/Chest: no respiratory distress, no accessory muscle use Extremities: normal inspection Neurologic/Psychiatric: supervisor pastry II-XII nml as tested, alert, normal mood/affect Skin: normal color, warm/dry Hospital Course Mr. Sauceda is a 72 y/o male who [facility] but [facility]. Went on 5 day binge consuming 5th of vodka daily where with withdrawal symptoms and abdominal pain/nausea/vomiting ETOH Abuse with Withdrawal: IMPROVED - MVI, Folic 1 mg, and Thiamine 100 mg daily - outpatient rehab/therapy Chronic Urinary Retention with BPH: IMPROVING - Tolerating increased Doxazosin at 8 mg daily and will continue as well as initiate proscar since doxazosin is helping more than expected and therefore near-immediate procedures might not be necessary - outpatient appt with Dr. Villatoro for 11/29 COPD without Exacerbation: - Nebulizers PRN Thrombocytopenia: STABLE DVT Prophylaxis: SCDs since he is fall risk Disposition: home, close outpt f/u (today) Total Time Spent: Less than 30 minutes This includes examination of the patient, discharge planning, medication reconciliation, and communication with other providers. Discharge Instructions Please refer to the electronic Patient Visit Report (Discharge Instructions) for additional information.
== END 2017-11-15 09:20 | disposition home or self-care (01) | DRG 897 ==
LOC: C.EDB 17:17 → C.2T 19:38 → ENRESERV 20:22 → C.MS2W 11-09 16:46
PROVIDERS: ADMIT Internal Medicine; ATTEND Family Medicine
DX: F10.239 Alcohol dependence with withdrawal, unspecified (principal); N39.0 Urinary tract infection, site not specified; D69.59 Other secondary thrombocytopenia; J44.9 Chronic obstructive pulmonary disease, unspecified; S01.01XA Laceration without foreign body of scalp, initial encounter; F17.210 Nicotine dependence, cigarettes, uncomplicated; E86.0 Dehydration; Z83.3 Family history of diabetes mellitus; N40.1 Benign prostatic hyperplasia with lower urinary tract symptoms; R33.8 Other retention of urine; E87.6 Hypokalemia; W19.XXXA Unspecified fall, initial encounter; Y92.009 Unspecified place in unspecified non-institutional (private) residence as the place of occurrence of the external cause

== ENCOUNTER → 2017-11-29 | Outpatient (CLI) | payer OTHER ==
[~2017-11-29] MED LIST changes: -DOXA1TAB88 PO; +DOXA4TAB2 PO; +DOXA4TAB5 PO; +FINA5TAB PO; +FINA5TAB4 PO; +FLV1 PO; +FOLI1TAB8 PO; +LPR25 PO; -LSN20 PO; -MTR500 PO; +MULT-890 PO; +RMR15 PO; +SPRIN/30 INH; +THIA100T27 PO
== END | disposition home or self-care (01) ==
LOC: C.LABSPEC 16:35
PROVIDERS: ATTEND Urology
DX: N39.0 Urinary tract infection, site not specified (principal)

== ENCOUNTER 2018-01-18 22:29 | Inpatient (IN) | payer OTHER ==
[~2018-01-18] VITALS: Ht 182.9 cm; Wt 74.7 kg
[~2018-01-18 22:29] MED LIST changes: -DOXA4TAB2 PO; -FINA5TAB PO; -FOLI1TAB8 PO; -SPRIN/30 INH; -SYMIN160 INH; -THIA100T27 PO; +THM100 PO
[2018-01-18 23:13] LABS: BASO % 0.3 %; BASO ABS # 0.04 K/uL (0-0.2); EOS % 0.1 %; EOS ABS # 0.01 K/uL (0-0.5); HEMATOCRIT 45.8 % (42-52); HEMOGLOBIN 15.8 g/dL (14.0-18.0); IG# 0.06 K/uL (0.00-0.02); LYMPH % 8.3 %; LYMPH ABS # 1.09 K/uL (1.2-3.4); MEAN CORPUSCULAR HGB CONC 34.5 g/dl (32-36); MEAN PLATELET VOLUME 9.5 fL (7.4-10.4); MONO % 5.2 %; MONO ABS # 0.68 K/uL (0.11-0.59); NEUT % 85.6 %; NEUT ABS # 11.27 K/uL (1.4-6.5); PLATELET COUNT 206 K/uL (130-400); RED CELL DISTRIBUTION WIDTH SD 46.3 fL (36.4-46.3); WHITE BLOOD COUNT 13.15 K/uL (4.8-10.8)
--- NOTE | 2018-01-18 23:27 | EMERGENCY ROOM VISIT NOTE ---
History Report prepared by Lanre: Jerome Treviño Under the Supervision of: Dr. Sary Sinha D.O. First contact with patient: 23:01 Chief Complaint: MENTAL HEALTH EVALUATION Stated Complaint: mr History of Present Illness HPI is limited due to altered mental state secondary to alcohol intoxication. The patient is a 73 year old male who presents to the Emergency Room via [place] [employer] with complaints of drinking alcohol for the past 2 days. Patient states that he has been drinking liquor. Patient states that he "drank too much ". He denies drinking alcohol "earlier in the week". He states that he has a history of drinking and admits to being an alcoholic. Patient states that he got to the ER after someone called the police on him. He states he was at his house when the police arrived. He adds that he lives alone. Patient states that he has history of admission to [facility] for alcohol-related problems. He states he has no interest in going back there. Pertinent past medical history includes depression and COPD. He takes medication for his depression. He adds that the medication is prescribed by his psychiatrist. He is unsure whether he has been taking his medications over the past couple of days. Patient denies a history of admission into a psychiatric facility, although by history, he has been admitted to a [facility] clinic for mental health issues. Patient denies a history of diabetes. 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 Patient states that he has been eating. He does not remember what he had for dinner. Patient denies abdominal pain. Source of History: patient History Limited By: AMS (Secondary to alcohol intoxication) Associated Symptoms: No abdominal pain Review of Systems ROS is limited due to altered mental state secondary to alcohol intoxication. Past Medical & Surgical Medical Problems: (1) Alcohol withdrawal (2) COPD (chronic obstructive pulmonary disease) (3) Delirium tremens (4) Hypertensive urgency (5) Mild emphysema Family History Diabetes mellitus Heart disease Hypertension Social History Smoking Status: Current Every Day Smoker Alcohol Use: occasionally Drug Use: none Marital Status: Housing Status: lives alone Occupation Status: employed Current/Historical Medications Scheduled Doxazosin Mesylate (Cardura), 4 MG PO DAILY Finasteride (Proscar), 5 MG PO DAILY Folic Acid (Folvite), 1 MG PO DAILY Sertraline (Zoloft), 100 MG PO DAILY Tiotropium Newcomb (Spiriva Handihaler), 1 CAP INH DAILY Miscellaneous Medications Budesonide/Formoterol Fumarate (Symbicort 160/4.5 Inhaler ), 2 PUFFS INH Allergies Coded Allergies: No Known Allergies (Unverified , 07/03/17) Physical Exam Vital Signs Date Time Temp Pulse Resp B/P (MAP) Pulse Ox O2 Delivery O2 Flow Rate FiO2 01/19/18 12:59 Room Air 01/19/18 12:58 106 20 219/114 97 Room Air 01/19/18 12:20 36.9 01/19/18 12:06 102 20 217/112 95 Room Air 01/19/18 03:38 100 18 136/86 95 Room Air 01/18/18 22:29 36.4 104 18 126/75 96 Room Air Physical Exam General: Patient smells of alcohol, appears extremely disheveled, and dirty. HEENT: Head - normocephalic and atraumatic Pupils are equal, round, and reactive to light. Extraocular eye muscles are intact, and sclera are anicteric. Nose - moist nasal mucosa without discharge. Mouth - Poor dentition. Moist buccal mucosa. Oropharynx is nonerythematous and there is no tonsillar exudate or edema noted. Neck: Supple; no JVD, nuchal rigidity, cervical lymphadenopathy. Heart: Regular rate and rhythm. There is a normal S1 and S2 with no murmurs, clicks, or gallops appreciated. Lungs: Clear to auscultation bilaterally with no wheezes, rales, or rhonchi. Abdomen: Soft, completely nontender, nondistended, with good bowel sounds. There are no palpable pulsatile masses or hepatosplenomegaly. There is no guarding, rigidity, or rebound noted. Extremities: 2 small skin tears on right dorsal hand. No evidence of cyanosis, clubbing, or edema. There are easily palpable peripheral pulses. Skin: warm and dry with good turgor and no rashes. Neuro: Very slow to answer questions secondary to alcohol intoxication. Psych: Patient is significantly intoxicated. He denies thoughts of suicide or homicide. Medical Decision & Procedures Laboratory Results 01/18/18 22:51 Red Blood Count 5.09, Mean Corpuscular Volume 90.0, Mean Corpuscular Hemoglobin 31.0, Mean Corpuscular Hemoglobin Concent 34.5, Mean Platelet Volume 9.5, Neutrophils (%) (Auto) 85.6, Lymphocytes (%) (Auto) 8.3, Monocytes (%) (Auto) 5.2, Eosinophils (%) (Auto) 0.1, Basophils (%) (Auto) 0.3, Neutrophils # (Auto) 11.27, Lymphocytes # (Auto) 1.09, Monocytes # (Auto) 0.68, Eosinophils # (Auto) 0.01, Basophils # (Auto) 0.04 01/18/18 22:51 Test 01/18/18 22:51 01/19/18 00:00 White Blood Count 13.15 K/uL (4.8-10.8) Red Blood Count 5.09 M/uL (4.7-6.1) Hemoglobin 15.8 g/dL (14.0-18.0) Hematocrit 45.8 % (42-52) Mean Corpuscular Volume 90.0 fL (80-100) Mean Corpuscular Hemoglobin 31.0 pg (25-34) Mean Corpuscular Hemoglobin Concent 34.5 g/dl (32-36) Platelet Count 206 K/uL (130-400) Mean Platelet Volume 9.5 fL (7.4-10.4) Neutrophils (%) (Auto) 85.6 % Lymphocytes (%) (Auto) 8.3 % Monocytes (%) (Auto) 5.2 % Eosinophils (%) (Auto) 0.1 % Basophils (%) (Auto) 0.3 % Neutrophils # (Auto) 11.27 K/uL (1.4-6.5) Lymphocytes # (Auto) 1.09 K/uL (1.2-3.4) Monocytes # (Auto) 0.68 K/uL (0.11-0.59) Eosinophils # (Auto) 0.01 K/uL (0-0.5) Basophils # (Auto) 0.04 K/uL (0-0.2) RDW Standard Deviation 46.3 fL (36.4-46.3) RDW Coefficient of Variation 14.0 % (11.5-14.5) Immature Granulocyte % (Auto) 0.5 % Immature Granulocyte # (Auto) 0.06 K/uL (0.00-0.02) Anion Gap 16.0 mmol/L (3-11) Est Creatinine Clear Calc Drug Dose 57.2 ml/min Estimated GFR () 63.6 Estimated GFR (Non- 54.9 BUN/Creatinine Ratio 20.6 (10-20) Calcium Level 8.6 mg/dl (8.5-10.1) Total Bilirubin 0.5 mg/dl (0.2-1) Direct Bilirubin 0.1 mg/dl (0-0.2) Aspartate Amino Transf (AST/SGOT) 50 U/L (15-37) Alanine Aminotransferase (ALT/SGPT) 31 U/L (12-78) Alkaline Phosphatase 91 U/L (45-117) Total Protein 8.0 gm/dl (6.4-8.2) Albumin 4.0 gm/dl (3.4-5.0) Thyroid Stimulating Hormone (TSH) 0.733 uIu/ml (0.300-4.500) Salicylates Level 4.7 mg/dl (2.8-20) Acetaminophen Level < 2 ug/ml (10-30) Ethyl Alcohol mg/dL 221.0 mg/dl (0-3) Urine Color YELLOW Urine Appearance CLEAR (CLEAR) Urine pH 5.0 (4.5-7.5) Urine Specific [place] 1.021 (1.000-1.030) Urine Protein TRACE (NEG) Urine Glucose (UA) NEG (NEG) Urine Ketones 1+ (NEG) Urine Occult Blood 2+ (NEG) Urine Nitrite POS (NEG) Urine Bilirubin NEG (NEG) Urine Urobilinogen NEG (NEG) Urine Leukocyte Esterase SMALL (NEG) Urine WBC (Auto) 10-30 /hpf (0-5) Urine RBC (Auto) 0-4 /hpf (0-4) Urine Hyaline Casts (Auto) 1-5 /lpf (0-5) Urine Epithelial Cells (Auto) 0-5 /lpf (0-5) Urine Bacteria (Auto) NEG (NEG) Urine Yeast (Auto) (NONE PRSENT) Urine Opiates Screen NEG (NEG) Urine Methadone, Qualitative NEG (NEG) Urine Barbiturates NEG (NEG) Urine Phencyclidine (PCP) Level NEG (NEG) Ur Amphetamine/Methamphetamine NEG (NEG) MDMA (Ecstasy) Screen NEG (NEG) Urine Benzodiazepines Screen NEG (NEG) Urine Cocaine Metabolite NEG (NEG) Urine Marijuana (THC) NEG (NEG) Laboratory results per my review. Medications Administered Medications (Trade) Dose Ordered Sig/Farnces Route Start Time Stop Time Status Last Admin Dose Admin Lorazepam (Ativan Tab) 1 mg NOW STAT SL 01/19/18 04:01 01/19/18 04:03 DC 01/19/18 04:06 1 MG Calcium Carbonate (Tums Chew Tab) 1,500 mg NOW STAT PO 01/19/18 04:55 01/19/18 04:57 DC 01/19/18 05:26 1,500 MG Ranitidine HCl (zANTac TAB) 150 mg STK-MED ONCE .ROUTE 01/19/18 06:23 01/19/18 06:24 DC 01/19/18 06:38 150 MG Lorazepam (Ativan Tab) 1 mg NOW STAT SL 01/19/18 08:21 01/19/18 08:22 DC 01/19/18 08:36 1 MG Tiotropium [place] (Spiriva Handihaler Inhaler) 1 puff QAM INH 01/19/18 09:00 01/19/18 13:25 DC 01/19/18 09:00 1 PUFF Budesonide (Pulmicort Inhaler) 2 puffs DAILY INH 01/19/18 09:00 01/19/18 13:25 DC 01/19/18 09:00 2 PUFFS Folic Acid (Folvite Tab) 1 mg QAM PO 01/19/18 09:00 01/19/18 13:26 DC 01/19/18 10:24 1 MG Finasteride (Proscar Tab) 5 mg QAM PO 01/19/18 09:00 01/19/18 13:26 DC 01/19/18 10:24 5 MG Doxazosin Mesylate (Cardura Tab) 4 mg DAILY PO 01/19/18 09:00 01/19/18 13:26 DC 01/19/18 10:24 4 MG Sertraline HCl (Zoloft Tab) 100 mg QAM PO 01/19/18 09:00 01/19/18 13:26 DC 01/19/18 10:25 100 MG Ondansetron HCl (Zofran Odt) 4 mg NOW STAT PO 01/19/18 11:46 01/19/18 11:48 DC 01/19/18 11:55 4 MG Clonidine HCl ([id number]-Zjq-1 0.3mg/24hr Patch) 1 patch NOW STAT TD 01/19/18 11:46 01/19/18 11:48 DC 01/19/18 12:02 1 PATCH Lorazepam (Ativan Tab) 1 mg NOW STAT SL 01/19/18 11:46 01/19/18 11:48 DC 01/19/18 12:03 1 MG Multivitamins 10 ml/Thiamine HCl 100 mg/Folic Acid 1 mg/Sodium Chloride 1,011.2 ml @ 500 mls/ hr Q2H2M ONCE IV 01/19/18 12:30 01/19/18 14:31 DC 01/19/18 12:30 500 MLS/HR Lorazepam (Ativan Inj) PRN Dosing -Active Protocol Q1H PRN IV 01/19/18 13:00 02/18/18 12:59 01/19/18 16:41 1 MG Procedure Ativan Tab 1mg SL, Tums Chew Tab 1500mg PO, Zantac Tab 150mg PO, and Ativan Tab 1mg SL X2 ED Course 2310: Past medical records reviewed. The patient was evaluated in room A7. A complete history and physical exam was performed. Laboratory studies were drawn as above. 0150: I explained to the patient that his alcohol level was elevated and that he would need to become more sober before he could be evaluated from a psychiatric standpoint. His mental status had already seem to be clearing at this point. 0400: Patient is standing up at the door saying he was having trouble breathing. Patient was breathing fast and was anxious. I listened to the patient 's lung sounds and they were clear. Patient oxygen saturation levels were 98%. The patient was slightly tachycardic. He asked for something to help him relax and/or sleep. 0401: Ativan Tab 1mg SL 0455: Nursing staff noted that the patient seemed to be more relaxed but was complaining of some heartburn. He requested Tums. Tums Chew Tab 1500mg PO 0623:I reevaluated the patient at this time and he was much more relaxed. However, he said that the heartburn was returning And he was given Zantac Tab 150mg PO 0745: I had an extensive conversation with the patient at this time and he patient is not willing to sign himself in voluntarily. I reviewed the petitioning statement from the patient's son in [place]. Mental health staff tried to contact the patient's son in [place] so that I could speak with him but were unsuccessful. Staff from [facility] spoke to the patient's son in [place], [place] who voiced significant concerns for the patient's safety. [facility] states they will give the patient one additional chance to voluntarily sign himself in otherwise they will uphold the 302. 0821: Patient states that he is willing to sign himself in voluntarily. Again, he asked for something to help him sleep. 0822: Ativan Tab 1mg SL 0830: Patient was signed out to Dr. Seaman at change of shifts. Medical Decision The patient is a 73 year old male who presents to the ED with a constant alcoholic state. Differential diagnosis includes alcohol overdose, anxiety, depression, alcohol withdrawal, mood disorder, and thought disorder. Lab results show Alcohol = 221, white count = 13.1, stable H&H, BUN = 27, creatinine = 1.3, normal LFTs except AST = 50, glucose = 88, salicylate = 4.7, and Tylenol level less than 2. This is a 73-year-old male patient with history of alcohol abuse who presents to the emergency department because his family was concerned that he was unable to care for himself. The patient admits to binge drinking over the past couple of days. He is denying any suicidal or homicidal thoughts at this time. However, the patient is extremely disheveled, unkempt, dirty and cannot remember when the last time he ate. The patient's son has petitioned an involuntary commitment stating that the patient is unable to care for himself and they fear that he will potentially hurt himself or kill himself in an intoxicated state. The patient was allowed to sober up some here in the emergency department so we could have a more formal discussion about psychiatric care and his alcoholism. The patient admits to being significantly depressed. He has not been taking his medications. He does admit to binge drinking over the past couple of days. The patient became slightly anxious throughout his stay most likely secondary to alcohol withdrawal and his underlying anxiety. He seemed to respond nicely to sublingual Ativan. After much discussion, the patient was willing to sign himself in voluntarily for inpatient psychiatric care. Staff from [facility] were working on bed placement through the [facility] system. The patient was signed out at change of shift to Dr. Seaman awaiting bed placement. Medication Reconcilliation Current Medication List: was personally reviewed by me Blood Pressure Screening Patient's blood pressure: Normal blood pressure Blood pressure disposition: Did not require urgent referral Impression Primary Impression: Mood disorder Additional Impression: Alcohol intoxication Scribe Attestation The scribe's documentation has been prepared under my direction and personally reviewed by me in its entirety. I confirm that the note above accurately reflects all work, treatment, procedures, and medical decision making performed by me. Departure Information Dispostion Still a Patient Referrals Lydia Gaines C.R.N.P. (PCP) Patient Instructions My [facility] Problem Qualifiers Additional Impression: Alcohol intoxication Complication of substance-induced condition: uncomplicated Qualified Codes: F10.920 - Alcohol use, unspecified with intoxication, uncomplicated
[2018-01-18 23:32] LABS: CALCIUM 8.6 mg/dl (8.5-10.1); CREATININE 1.3 mg/dl (0.60-1.40); POTASSIUM 4.5 mmol/L (3.5-5.1)
[2018-01-19] VITALS (8 sets, daily range): BP systolic 132–188; BP diastolic 83–105; PULSE 80–102; TEMP 37–37.2; O2SAT 94–97; Ht 182.9 cm; Wt 74.7 kg
[2018-01-19] MEDS ORDERED: DOXA4TAB2 PO (00:08)
[2018-01-19] MEDS ORDERED: FINA5TAB PO (00:09)
[2018-01-19] MEDS ORDERED: FOLI1TAB8 PO (00:10)
[2018-01-19] MEDS ORDERED: LORAZEPAM 1 MG TAB SL STA ×3 (04:01→11:46)
[2018-01-19] MEDS ORDERED: CALCIUM CARBONATE 500 MG CHEWABLE PO STA (04:55)
[2018-01-19] MEDS ORDERED: RANITIDINE HCL 150 MG TAB ONE (06:23)
[2018-01-19] MEDS ORDERED: SYMIN160 INH (07:04)
[2018-01-19] MEDS ORDERED: SPRIN/30 INH (07:04)
--- NOTE | 2018-01-19 08:37 | EMERGENCY ROOM VISIT NOTE ---
ED Visit Note First contact with patient: 08:49 Received pt in sign out. History and physical verified by me. Patient was given his morning pain medication. Around this afternoon I was called to the patient's room because he had vomited. He is actively hallucinating and appears to be in delirium tremens. A clonidine patch was ordered along with an IV and banana bag. He was given Zofran. Due to the acute alcohol withdrawal I spoke the case over with the hospitalist who agreed to admit the patient. The case was also discussed with the ICU attending. Problem List Medical Problems: (1) Mild emphysema Status: Chronic Current/Historical Medications Scheduled Doxazosin Mesylate (Cardura), 4 MG PO DAILY Finasteride (Proscar), 5 MG PO DAILY Folic Acid (Folvite), 1 MG PO DAILY Sertraline (Zoloft), 100 MG PO DAILY Tiotropium [place] (Spiriva Handihaler), 1 CAP INH DAILY Miscellaneous Medications Budesonide/Formoterol Fumarate (Symbicort 160/4.5 Inhaler ), 2 PUFFS INH Allergies Coded Allergies: No Known Allergies (Unverified , 07/03/17) Vital Signs Date Time Temp Pulse Resp B/P (MAP) Pulse Ox O2 Delivery O2 Flow Rate FiO2 01/19/18 13:40 199/116 01/19/18 13:34 110 20 220/119 01/19/18 13:31 126 01/19/18 12:59 Room Air 01/19/18 12:58 106 20 219/114 97 Room Air 01/19/18 12:20 36.9 01/19/18 12:06 102 20 217/112 95 Room Air 01/19/18 03:38 100 18 136/86 95 Room Air 01/18/18 22:29 36.4 104 18 126/75 96 Room Air Laboratory Results 01/18/18 22:51 Red Blood Count 5.09, Mean Corpuscular Volume 90.0, Mean Corpuscular Hemoglobin 31.0, Mean Corpuscular Hemoglobin Concent 34.5, Mean Platelet Volume 9.5, Neutrophils (%) (Auto) 85.6, Lymphocytes (%) (Auto) 8.3, Monocytes (%) (Auto) 5.2, Eosinophils (%) (Auto) 0.1, Basophils (%) (Auto) 0.3, Neutrophils # (Auto) 11.27, Lymphocytes # (Auto) 1.09, Monocytes # (Auto) 0.68, Eosinophils # (Auto) 0.01, Basophils # (Auto) 0.04 01/18/18 22:51 Test 01/18/18 22:51 01/19/18 00:00 White Blood Count 13.15 K/uL (4.8-10.8) Red Blood Count 5.09 M/uL (4.7-6.1) Hemoglobin 15.8 g/dL (14.0-18.0) Hematocrit 45.8 % (42-52) Mean Corpuscular Volume 90.0 fL (80-100) Mean Corpuscular Hemoglobin 31.0 pg (25-34) Mean Corpuscular Hemoglobin Concent 34.5 g/dl (32-36) Platelet Count 206 K/uL (130-400) Mean Platelet Volume 9.5 fL (7.4-10.4) Neutrophils (%) (Auto) 85.6 % Lymphocytes (%) (Auto) 8.3 % Monocytes (%) (Auto) 5.2 % Eosinophils (%) (Auto) 0.1 % Basophils (%) (Auto) 0.3 % Neutrophils # (Auto) 11.27 K/uL (1.4-6.5) Lymphocytes # (Auto) 1.09 K/uL (1.2-3.4) Monocytes # (Auto) 0.68 K/uL (0.11-0.59) Eosinophils # (Auto) 0.01 K/uL (0-0.5) Basophils # (Auto) 0.04 K/uL (0-0.2) RDW Standard Deviation 46.3 fL (36.4-46.3) RDW Coefficient of Variation 14.0 % (11.5-14.5) Immature Granulocyte % (Auto) 0.5 % Immature Granulocyte # (Auto) 0.06 K/uL (0.00-0.02) Anion Gap 16.0 mmol/L (3-11) Est Creatinine Clear Calc Drug Dose 57.2 ml/min Estimated GFR () 63.6 Estimated GFR (Non- 54.9 BUN/Creatinine Ratio 20.6 (10-20) Calcium Level 8.6 mg/dl (8.5-10.1) Total Bilirubin 0.5 mg/dl (0.2-1) Direct Bilirubin 0.1 mg/dl (0-0.2) Aspartate Amino Transf (AST/SGOT) 50 U/L (15-37) Alanine Aminotransferase (ALT/SGPT) 31 U/L (12-78) Alkaline Phosphatase 91 U/L (45-117) Total Protein 8.0 gm/dl (6.4-8.2) Albumin 4.0 gm/dl (3.4-5.0) Thyroid Stimulating Hormone (TSH) 0.733 uIu/ml (0.300-4.500) Salicylates Level 4.7 mg/dl (2.8-20) Acetaminophen Level < 2 ug/ml (10-30) Ethyl Alcohol mg/dL 221.0 mg/dl (0-3) Urine Color YELLOW Urine Appearance CLEAR (CLEAR) Urine pH 5.0 (4.5-7.5) Urine Specific [place] 1.021 (1.000-1.030) Urine Protein TRACE (NEG) Urine Glucose (UA) NEG (NEG) Urine Ketones 1+ (NEG) Urine Occult Blood 2+ (NEG) Urine Nitrite POS (NEG) Urine Bilirubin NEG (NEG) Urine Urobilinogen NEG (NEG) Urine Leukocyte Esterase SMALL (NEG) Urine WBC (Auto) 10-30 /hpf (0-5) Urine RBC (Auto) 0-4 /hpf (0-4) Urine Hyaline Casts (Auto) 1-5 /lpf (0-5) Urine Epithelial Cells (Auto) 0-5 /lpf (0-5) Urine Bacteria (Auto) NEG (NEG) Urine Yeast (Auto) (NONE PRSENT) Urine Opiates Screen NEG (NEG) Urine Methadone, Qualitative NEG (NEG) Urine Barbiturates NEG (NEG) Urine Phencyclidine (PCP) Level NEG (NEG) Ur Amphetamine/Methamphetamine NEG (NEG) MDMA (Ecstasy) Screen NEG (NEG) Urine Benzodiazepines Screen NEG (NEG) Urine Cocaine Metabolite NEG (NEG) Urine Marijuana (THC) NEG (NEG) Medications Administered Medications (Trade) Dose Ordered Sig/Frances Route Start Time Stop Time Status Last Admin Dose Admin Lorazepam (Ativan Tab) 1 mg NOW STAT SL 01/19/18 04:01 01/19/18 04:03 DC 01/19/18 04:06 1 MG Calcium Carbonate (Tums Chew Tab) 1,500 mg NOW STAT PO 01/19/18 04:55 01/19/18 04:57 DC 01/19/18 05:26 1,500 MG Ranitidine HCl (zANTac TAB) 150 mg STK-MED ONCE .ROUTE 01/19/18 06:23 01/19/18 06:24 DC 01/19/18 06:38 150 MG Lorazepam (Ativan Tab) 1 mg NOW STAT SL 01/19/18 08:21 01/19/18 08:22 DC 01/19/18 08:36 1 MG Tiotropium [place] (Spiriva Handihaler Inhaler) 1 puff QAM INH 01/19/18 09:00 01/19/18 13:25 DC 01/19/18 09:00 1 PUFF Budesonide (Pulmicort Inhaler) 2 puffs DAILY INH 01/19/18 09:00 01/19/18 13:25 DC 01/19/18 09:00 2 PUFFS Folic Acid (Folvite Tab) 1 mg QAM PO 01/19/18 09:00 01/19/18 13:26 DC 01/19/18 10:24 1 MG Finasteride (Proscar Tab) 5 mg QAM PO 01/19/18 09:00 01/19/18 13:26 DC 01/19/18 10:24 5 MG Doxazosin Mesylate (Cardura Tab) 4 mg DAILY PO 01/19/18 09:00 01/19/18 13:26 DC 01/19/18 10:24 4 MG Sertraline HCl (Zoloft Tab) 100 mg QAM PO 01/19/18 09:00 01/19/18 13:26 DC 01/19/18 10:25 100 MG Ondansetron HCl (Zofran Odt) 4 mg NOW STAT PO 01/19/18 11:46 01/19/18 11:48 DC 01/19/18 11:55 4 MG Clonidine HCl ([id number] 0.3mg/24hr Patch) 1 patch NOW STAT TD 01/19/18 11:46 01/19/18 11:48 DC 01/19/18 12:02 1 PATCH Lorazepam (Ativan Tab) 1 mg NOW STAT SL 01/19/18 11:46 01/19/18 11:48 DC 01/19/18 12:03 1 MG Multivitamins 10 ml/Thiamine HCl 100 mg/Folic Acid 1 mg/Sodium Chloride 1,011.2 ml @ 500 mls/ hr Q2H2M ONCE IV 01/19/18 12:30 01/19/18 14:31 01/19/18 12:30 500 MLS/HR Departure Information Impression Primary Impression: Mood disorder Additional Impression: Alcohol intoxication Dispostion Still a Patient Referrals Lydia Gaines C.RInocenteN.P. Patient Instructions My [facility] Problem Qualifiers
[2018-01-19] MEDS ORDERED: BUDESONIDE 90 MCG INH INH SCH (09:00)
[2018-01-19] MEDS ORDERED: SERTRALINE HCL 100 MG TAB PO SCH (09:00)
[2018-01-19] MEDS ORDERED: DOXAZosin MESYLATE TAB 4 MG TAB PO SCH (09:00)
[2018-01-19] MEDS ORDERED: TIOTROPIUM BROMIDE 5 PUFF/90 MCG INH INH SCH (09:00)
[2018-01-19] MEDS ORDERED: FINASTERIDE 5 MG TAB PO SCH (09:00)
[2018-01-19] MEDS ORDERED: ONDANSETRON 4MG OD TAB PO STA (11:46)
[2018-01-19] MEDS ORDERED: CLONIDINE HCL 0.3 MG/24 HR TRANSDERM SYS TD STA (11:46)
[2018-01-19] MEDS ORDERED: LORAZEPAM 2 MG/ML 1 ML VIAL IV STA ×2 (12:28→12:53)
[2018-01-19] MEDS ORDERED: MULTI-VITAMIN INFUSION INJ 10 ML, THIAMINE HCL INJ 100 MG, FoLIC ACID INJ 1 MG in SODIU... IV ONE (12:30)
[2018-01-19] MEDS ORDERED: ICU PROTOCOL FOR HYPERGLYCEMIA PRN (13:00)
[2018-01-19] MEDS ORDERED: ALBUT/IPRATROP 3MG/0.5MG NEB 3 ML VIAL INH PRN (13:00)
[2018-01-19] MEDS ORDERED: NITROGLYCERIN 0.4 MG SL PER TAB CHARGE SL PRN (13:00)
--- NOTE | 2018-01-19 13:00 | History and Physical ---
History & Physical Date & Time of Service: Jan 19, 2018 at 12:57 Chief Complaint: [facility] Primary Care Physician: No Doctor, Assigned History of Present Illness Source: patient I was called by ER physician as patient had been brought to [facility] ED for a Safety check as his son was not able to get a hold of the patient. Patient arrived yesterday to the ED and was getting intermitent ativan during his ED stay. Patient states that his last alcoholic beverage was yesterday as well, though he denies drinking daily. During his ED stay patient began to hallucinate and his BP became elevated over 200 systolic. Patient denies drinking daily, but on further questioning states that he drinks vodka. Patient states that he knows he is hallucinating as he is seeing numbers being drawn on the floor. Nurse states he has not been responding to 1mg of PO ativan. Patient is known to this center for his alcohol withdrawal . Past Medical/Surgical History Medical Problems: (1) Mild emphysema Status: Chronic Family History Diabetes mellitus Heart disease Hypertension Social History Smoking Status: Current Every Day Smoker Drug Use: none Marital Status: Occupational Status: employed Immunizations History of Influenza Vaccine: Unknown History of Tetanus Vaccine?: Unknown History of Pneumococcal: Unknown History of Hepatitis B Vaccine: Unknown Multi-Drug Resistant Organisms History of MDRO: No Allergies Coded Allergies: No Known Allergies (Unverified , 07/03/17) Home Medications Scheduled Doxazosin Mesylate (Cardura), 4 MG PO DAILY Finasteride (Proscar), 5 MG PO DAILY Folic Acid (Folvite), 1 MG PO DAILY Sertraline (Zoloft), 100 MG PO DAILY Tiotropium [place] (Spiriva Handihaler), 1 CAP INH DAILY Miscellaneous Medications Budesonide/Formoterol Fumarate (Symbicort 160/4.5 Inhaler ), 2 PUFFS INH Review of Systems Constitutional: + chills, No fever Eyes: No worsening of vision, No eye pain ENT: No hearing loss Respiratory: No cough, No sputum Cardiovascular: No chest pain Abdomen: No pain, No nausea, No vomiting Neurologic: + weakness, No memory loss, No paralysis Psychiatric: + depression symptoms, + substance abuse Endocrine: + fatigue, No excessive thirst Integumentary: No rash, No itch Allergic / Immunologic: + seasonal allergies Physical Exam Vital Signs Date Time Temp Pulse Resp B/P (MAP) Pulse Ox O2 Delivery O2 Flow Rate FiO2 01/19/18 12:20 36.9 01/19/18 12:06 102 20 217/112 95 Room Air 01/19/18 03:38 100 18 136/86 95 Room Air 01/18/18 22:29 36.4 104 18 126/75 96 Room Air General Appearance: WD/WN, no apparent distress Head: normocephalic Eyes: normal inspection ENT: TMs normal Neck: supple, no adenopathy Respiratory/Chest: chest non-tender, lungs clear, normal breath sounds Cardiovascular: no edema, + tachycardia Abdomen/GI: normal bowel sounds, non tender, soft Extremities/Musculoskelatal: normal inspection, no pedal edema Neurologic/Psych: alert, oriented x 3 Skin: warm/dry Lymphatic: no adenopathy Diagnostics Laboratory Results Results Past 24 Hours Test 01/18/18 22:51 01/19/18 00:00 Range/Units White Blood Count 13.15 4.8-10.8 K/uL Red Blood Count 5.09 4.7-6.1 M/uL Hemoglobin 15.8 14.0-18.0 g/dL Hematocrit 45.8 42-52 % Mean Corpuscular Volume 90.0 80-100 fL Mean Corpuscular Hemoglobin 31.0 25-34 pg Mean Corpuscular Hemoglobin Concent 34.5 32-36 g/dl Platelet Count 206 130-400 K/uL Mean Platelet Volume 9.5 7.4-10.4 fL Neutrophils (%) (Auto) 85.6 % Lymphocytes (%) (Auto) 8.3 % Monocytes (%) (Auto) 5.2 % Eosinophils (%) (Auto) 0.1 % Basophils (%) (Auto) 0.3 % Neutrophils # (Auto) 11.27 1.4-6.5 K/uL Lymphocytes # (Auto) 1.09 1.2-3.4 K/uL Monocytes # (Auto) 0.68 0.11-0.59 K/uL Eosinophils # (Auto) 0.01 0-0.5 K/uL Basophils # (Auto) 0.04 0-0.2 K/uL RDW Standard Deviation 46.3 36.4-46.3 fL RDW Coefficient of Variation 14.0 11.5-14.5 % Immature Granulocyte % (Auto) 0.5 % Immature Granulocyte # (Auto) 0.06 0.00-0.02 K/uL Sodium Level 142 136-145 mmol/L Potassium Level 4.5 3.5-5.1 mmol/L Chloride Level 108 98-107 mmol/L Carbon Dioxide Level 18 21-32 mmol/L Anion Gap 16.0 3-11 mmol/L Blood Urea Nitrogen 27 7-18 mg/dl Creatinine 1.30 0.60-1.40 mg/dl Est Creatinine Clear Calc Drug Dose 57.2 ml/min Estimated GFR () 63.6 Estimated GFR (Non- 54.9 BUN/Creatinine Ratio 20.6 10-20 Random Glucose 88 70-99 mg/dl Calcium Level 8.6 8.5-10.1 mg/dl Total Bilirubin 0.5 0.2-1 mg/dl Direct Bilirubin 0.1 0-0.2 mg/dl Aspartate Amino Transf (AST/SGOT) 50 15-37 U/L Alanine Aminotransferase (ALT/SGPT) 31 12-78 U/L Alkaline Phosphatase 91 45-117 U/L Total Protein 8.0 6.4-8.2 gm/dl Albumin 4.0 3.4-5.0 gm/dl Thyroid Stimulating Hormone (TSH) 0.733 0.300-4.500 uIu/ml Salicylates Level 4.7 2.8-20 mg/dl Acetaminophen Level < 2 10-30 ug/ml Ethyl Alcohol mg/dL 221.0 0-3 mg/dl Urine Color YELLOW Urine Appearance CLEAR CLEAR Urine pH 5.0 4.5-7.5 Urine Specific [place] 1.021 1.000-1.030 Urine Protein TRACE NEG Urine Glucose (UA) NEG NEG Urine Ketones 1+ NEG Urine Occult Blood 2+ NEG Urine Nitrite POS NEG Urine Bilirubin NEG NEG Urine Urobilinogen NEG NEG Urine Leukocyte Esterase SMALL NEG Urine WBC (Auto) 10-30 0-5 /hpf Urine RBC (Auto) 0-4 0-4 /hpf Urine Hyaline Casts (Auto) 1-5 0-5 /lpf Urine Epithelial Cells (Auto) 0-5 0-5 /lpf Urine Bacteria (Auto) NEG NEG Urine Yeast (Auto) NONE PRSENT Urine Opiates Screen NEG NEG Urine Methadone, Qualitative NEG NEG Urine Barbiturates NEG NEG Urine Phencyclidine (PCP) Level NEG NEG Ur Amphetamine/Methamphetamine NEG NEG MDMA (Ecstasy) Screen NEG NEG Urine Benzodiazepines Screen NEG NEG Urine Cocaine Metabolite NEG NEG Urine Marijuana (THC) NEG NEG Impression Assessment and Plan Alcohol withdrawal and Delirium tremens in a 73 yo male who is known for having alcohol withdrawal in the past and not responding to benzos willl admit to ICU. Reason for this is mainly due to his Age >40, elevated BP, and need for frequent high doses of benzodiazepine Patient is also actively hallucinating which points that he is in active DT's d/w dr. Barboza. He will evaluate patient in 30 minutes. Ordered 2 mg of lorazepam. Will repeat in 15 minutes. Despite hallucinating, patient is awake alert and oriented. Patient will likely require large boluses of Ativan. Hypertension Urgency Likely due to his alcohol withdrawal will likely improve as we treat his withdrawal COPD nebs a needed due to smoking Update: I dw Dr. Barboza, patient will be on precedex. Will continue to monitor patient throughout the day I have personally spent 55 minutes of critical care time in the direct management of this patient. This is a life/limb threatening event. This includes time spent evaluating patient, direct bedside care, chart review, placing orders, interpretation of diagnostic studies, discussion with consultants, patient, and/or family members regarding treatment decisions, as well as other required patient management activities. This time is exclusive of all separately billable procedures, and teaching time and separate from and in addition to any other critical care service time. Level of Care Critical Care Advanced Directives Existing Advance Directive: No Existing Living Will: No Existing Power of Lens Matcher: No Existing Health Care Proxy: No Resuscitation Status FULL RESUSCITATION VTE Prophylaxis VTE Risk Assessment Done? Y/N: Yes Risk Level: Moderate Given or contraindicated: T.E.DInocente Hutchinson Social Service Consult Abuse/Neglect Concerns Note Total Time: Critical Care 30 - 74 minutes
--- NOTE | 2018-01-19 13:30 | Critical Care Consultation ---
Critical Care Consultation Date of Consultation: Jan 19, 2018. Attending Physician: Billy Reason for Consultation: Acute alcohol withdrawal, hypertensive urgency History of Present Illness Patient's last drink was patient is a 73-year-old male who was brought to [facility] emergency department for safety check per report from the ED physician. He stayed in the ED and eventually entered delirium tremens. I was called by the hospitalist who needs to admit the patient for alcohol withdrawal symptoms. Patient denies a significant history of daily drinking, denies prior alcohol withdrawal; however: He is well known to [facility] a past medical history of hypertension and enlarged prostate as well as COPD and pack-a-day smoker. During my evaluation he was alert and oriented 3 and pleasant. However. The hospitalist emergency room physician he was active likely hallucinating previously. They have increased his Ativan dosage at this time. Patient was certainly tremulous tachycardic and hypertensive, I believe this can be aspects of his acute alcohol withdrawal versus medical noncompliance. Patient's last drink was asked to bend prior to arrival he arrived with an alcohol level of 221. He states he when he does drink he normally drinks approximately 1/5 of vodka. Past Medical/Surgical History As noted above Family History Diabetes mellitus Heart disease Hypertension Social History Smoking Status: Current Every Day Smoker Drug Use: none Marital Status: Housing Status: lives alone Occupation Status: employed Allergies Coded Allergies: No Known Allergies (Unverified , 07/03/17) Home Medications Scheduled Doxazosin Mesylate (Cardura), 4 MG PO DAILY Finasteride (Proscar), 5 MG PO DAILY Folic Acid (Folvite), 1 MG PO DAILY Sertraline (Zoloft), 100 MG PO DAILY Tiotropium [place] (Spiriva Handihaler), 1 CAP INH DAILY Miscellaneous Medications Budesonide/Formoterol Fumarate (Symbicort 160/4.5 Inhaler ), 2 PUFFS INH Current Inpatient Medications Current Inpatient Medications Medications (Trade) Dose Ordered Sig/Frances Route Start Time Stop Time Status Last Admin Dose Admin Multivitamins 10 ml/Thiamine HCl 100 mg/Folic Acid 1 mg/Sodium Chloride 1,011.2 ml @ 500 mls/ hr Q2H2M ONCE IV 01/19/18 12:30 01/19/18 14:31 01/19/18 12:30 500 MLS/HR Nitroglycerin (Nitrostat Tab) 0.4 mg UD PRN SL 01/19/18 13:00 02/18/18 12:59 Pantoprazole Sodium 40 mg/ Syringe 10 ml @ 5 mls/min DAILY IV 01/20/18 09:00 02/19/18 08:59 UNV Albuterol/ Ipratropium (Duoneb) 3 ml Q4H PRN INH 01/19/18 13:00 02/18/18 12:59 Miscellaneous Information (Icu Protocol For Hyperglycemia) 1 ea PRN PRN N/A 01/19/18 13:00 01/21/18 12:59 UNV Multivitamins 10 ml/Thiamine HCl 100 mg/Folic Acid 1 mg/Sodium Chloride 1,011.2 ml @ 500 mls/ hr Q2H2M ONCE IV 01/20/18 09:00 01/20/18 11:01 UNV Lorazepam (Ativan Inj) PRN Dosing -Active Protocol Q1H PRN IV 01/19/18 13:00 02/18/18 12:59 UNV Tiotropium [place] (Spiriva Handihaler Inhaler) 1 puff DAILY INH 01/20/18 09:00 02/19/18 08:59 Budesonide/ Formoterol Fumarate (Symbicort 160/ 4.5 Inh) 2 puffs BID INH 01/19/18 21:00 02/18/18 20:59 Review of Systems A 10 point review of systems has been reviewed and is otherwise negative Constitutional: No fever, No chills, No sweats Eyes: No worsening of vision ENT: No hearing loss, No sore throat Respiratory: No cough, No sputum, No shortness of breath, No dyspnea on exertion Cardiovascular: No chest pain Abdomen: No pain, No nausea Genitourinary - Male: + problem reported (Difficulty starting stream), No hematuria, No dysuria Physical Exam Date Time Temp Pulse Resp B/P (MAP) Pulse Ox O2 Delivery O2 Flow Rate FiO2 01/19/18 12:59 Room Air 01/19/18 12:58 106 20 219/114 97 Room Air 01/19/18 12:20 36.9 01/19/18 12:06 102 20 217/112 95 Room Air 01/19/18 03:38 100 18 136/86 95 Room Air 01/18/18 22:29 36.4 104 18 126/75 96 Room Air General Appearance: other (Tremulous) Head: normocephalic, atraumatic Eyes: PERRLA, no discharge, EOMI, sclerae normal ENT: normal ear exam, normal nasal exam Neck: normal range of motion, no tenderness, trachea midline, no stridor, supple, no thyromegaly Respiratory: rhonchi (Scattered bilaterally), wheezing (Scattered bilaterally) Cardiovasular: abnormal rhythm (Tachycardia), systolic murmur (Grade 2 out of 6 murmur) Abdomen: non tender, normal bowel sounds, no rebound, no masses, no guarding, no organomegaly Back: normal inspection, no midline tenderness Lower Extremities: no edema, no deformity Neuro: alert, oriented x 3 Psychiatric: normal affect, anxious Laboratory Results Last 24 Hours Test 01/18/18 22:51 01/19/18 00:00 White Blood Count 13.15 K/uL Red Blood Count 5.09 M/uL Hemoglobin 15.8 g/dL Hematocrit 45.8 % Mean Corpuscular Volume 90.0 fL Mean Corpuscular Hemoglobin 31.0 pg Mean Corpuscular Hemoglobin Concent 34.5 g/dl Platelet Count 206 K/uL Mean Platelet Volume 9.5 fL Neutrophils (%) (Auto) 85.6 % Lymphocytes (%) (Auto) 8.3 % Monocytes (%) (Auto) 5.2 % Eosinophils (%) (Auto) 0.1 % Basophils (%) (Auto) 0.3 % Neutrophils # (Auto) 11.27 K/uL Lymphocytes # (Auto) 1.09 K/uL Monocytes # (Auto) 0.68 K/uL Eosinophils # (Auto) 0.01 K/uL Basophils # (Auto) 0.04 K/uL RDW Standard Deviation 46.3 fL RDW Coefficient of Variation 14.0 % Immature Granulocyte % (Auto) 0.5 % Immature Granulocyte # (Auto) 0.06 K/uL Sodium Level 142 mmol/L Potassium Level 4.5 mmol/L Chloride Level 108 mmol/L Carbon Dioxide Level 18 mmol/L Anion Gap 16.0 mmol/L Blood Urea Nitrogen 27 mg/dl Creatinine 1.30 mg/dl Est Creatinine Clear Calc Drug Dose 57.2 ml/min Estimated GFR () 63.6 Estimated GFR (Non- 54.9 BUN/Creatinine Ratio 20.6 Random Glucose 88 mg/dl Calcium Level 8.6 mg/dl Total Bilirubin 0.5 mg/dl Direct Bilirubin 0.1 mg/dl Aspartate Amino Transf (AST/SGOT) 50 U/L Alanine Aminotransferase (ALT/SGPT) 31 U/L Alkaline Phosphatase 91 U/L Total Protein 8.0 gm/dl Albumin 4.0 gm/dl Thyroid Stimulating Hormone (TSH) 0.733 uIu/ml Salicylates Level 4.7 mg/dl Acetaminophen Level < 2 ug/ml Ethyl Alcohol mg/dL 221.0 mg/dl Urine Color YELLOW Urine Appearance CLEAR Urine pH 5.0 Urine Specific [place] 1.021 Urine Protein TRACE Urine Glucose (UA) NEG Urine Ketones 1+ Urine Occult Blood 2+ Urine Nitrite POS Urine Bilirubin NEG Urine Urobilinogen NEG Urine Leukocyte Esterase SMALL Urine WBC (Auto) 10-30 /hpf Urine RBC (Auto) 0-4 /hpf Urine Hyaline Casts (Auto) 1-5 /lpf Urine Epithelial Cells (Auto) 0-5 /lpf Urine Bacteria (Auto) NEG Urine Yeast (Auto) Urine Opiates Screen NEG Urine Methadone, Qualitative NEG Urine Barbiturates NEG Urine Phencyclidine (PCP) Level NEG Ur Amphetamine/Methamphetamine NEG MDMA (Ecstasy) Screen NEG Urine Benzodiazepines Screen NEG Urine Cocaine Metabolite NEG Urine Marijuana (THC) NEG Diagnostic Results I have reviewed the report of an echo cardiogram obtained 07/08/2016, there is report of trace tricuspid regurgitation trace mitral regurgitation no significant aortic regurgitation nor stenosis. Assessment & Plan Reason Critically Ill: Patient is a 73-year-old male with significant past medical history of long-standing alcohol abuse currently in acute alcohol withdrawal at risk for delirium tremens PLAN: Neuro: Alcohol withdrawal * Alcohol withdrawal scoring currently being done * Empiric Ativan * Will start Precedex Resp: COPD Tobacco abuse * Nebulizers as needed CV: Hypertensive urgency * Patient has essential hypertension however a believe in aspect of this is related to alcohol use * Hypertension should improve with Precedex Fluids/Renal: Maintenance fluids as needed ID: Monitor fever curve GI/Nutrition: Minimal elevation in AST continue to monitor Heme: DVT prophylaxis Endocrine: Blood sugar monitoring per ICU protocol I have personally spent 60 minutes of critical care time in the direct management of this patient. This is a life/limb threatening event. This includes time spent evaluating patient, direct bedside care, chart review, placing orders, interpretation of diagnostic studies, discussion with consultants, patient, and/or family members regarding treatment decisions, as well as other required patient management activities. This time is exclusive of all separately billable procedures, and teaching time and separate from and in addition to any other critical care service time.
[2018-01-19] MEDS ORDERED: LABETALOL HCL IV 5 MG/ML 20ML IV STA (13:58)
[2018-01-19] MEDS: LORAZEPAM 2 MG/ML 1 ML VIAL IV PRN ×4 (15:16→23:56)
[2018-01-19] MEDS: BUDESONIDE/FORMOTEROL FUMARATE 160/4.5 60 PUFFS/INHALER INH SCH (19:57)
[2018-01-20] VITALS (10 sets, daily range): BP systolic 114–168; BP diastolic 72–97; PULSE 77–99; TEMP 36.5–36.8; O2SAT 93–96
[2018-01-20] MEDS: LORAZEPAM 2 MG/ML 1 ML VIAL IV PRN ×3 (03:01→07:47)
[2018-01-20 05:37] LABS: BASO % 0.2 %; BASO ABS # 0.02 K/uL (0-0.2); EOS % 1.2 %; HEMATOCRIT 43.7 % (42-52); HEMOGLOBIN 15.6 g/dL (14.0-18.0); IG# 0.02 K/uL (0.00-0.02); LYMPH % 11.8 %; MEAN CELL VOLUME 88.1 fL (80-100); MEAN CORPUSCULAR HEMOGLOBIN 31.5 pg (25-34); MEAN CORPUSCULAR HGB CONC 35.7 g/dl (32-36); MONO % 7.5 %; MONO ABS # 0.63 K/uL (0.11-0.59); NEUT % 79.1 %; NEUT ABS # 6.68 K/uL (1.4-6.5); PLATELET COUNT 133 K/uL (130-400); RED CELL DISTRIBUTION WIDTH CV 13.4 % (11.5-14.5); RED CELL DISTRIBUTION WIDTH SD 43.2 fL (36.4-46.3); WHITE BLOOD COUNT 8.45 K/uL (4.8-10.8)
[2018-01-20 05:45] LABS: PTT PATIENT 26.4 SECONDS (21.0-31.0)
[2018-01-20 06:23] LABS: ALBUMIN 3.4 gm/dl (3.4-5.0); CALCIUM 8.4 mg/dl (8.5-10.1); CREATININE 1.08 mg/dl (0.60-1.40); PHOSPHORUS 2.4 mg/dl (2.5-4.9); POTASSIUM 3.7 mmol/L (3.5-5.1); TOTAL PROTEIN 7.2 gm/dl (6.4-8.2)
[2018-01-20] MEDS ORDERED: PANTOprazole INJ 40 MG in SYRINGE 0 ML IV SCH (09:00)
[2018-01-20] MEDS ORDERED: POT PHOSPHATE MONOBASIC W/ SOD TAB PO ONE (09:00)
[2018-01-20] MEDS ORDERED: MULTI-VITAMIN INFUSION INJ 10 ML, THIAMINE HCL INJ 100 MG, FoLIC ACID INJ 1 MG in SODIU... IV ONE (09:00)
[2018-01-20] MEDS: BUDESONIDE/FORMOTEROL FUMARATE 160/4.5 60 PUFFS/INHALER INH SCH ×2 (09:44→20:37)
[2018-01-20] MEDS: TIOTROPIUM BROMIDE 5 PUFF/90 MCG INH INH SCH (09:45)
[2018-01-20] MEDS: SERTRALINE HCL 100 MG TAB PO SCH (09:47)
[2018-01-20] MEDS: THIAMINE HCL 100 MG TAB PO SCH (09:47)
[2018-01-20] MEDS: CHLORDIAZEPOXIDE 25 MG CAP PO SCH ×3 (13:07→20:36)
[2018-01-20] MEDS: PANTOprazole INJ 40 MG in SYRINGE 0 ML IV SCH (13:40)
--- NOTE | 2018-01-20 14:35 | Progress Note ---
Subjective Date of Service: Jan 20, 2018. Subjective Pt evaluation today including: conversation w/ patient, physical exam, lab review, conversation w/ residential solar consultant, review of inpatient medication list Pain: no pain PO Intake: adequate Voiding: dee catheter in place patient sitting in chair in the ICU this morning, no complaints denies any hallucinations said that he was in rehab in the fall for 29 days, relapsed after release he is not interested in going to rehab though he is interested in staying for detox here in the hospital appetite intact reviewed labs, normal discussed with Dr. Blevins, stable to leave ICU Problem List Medical Problems: (1) Alcohol intoxication Status: Acute (2) Alcohol intoxication Status: Acute (3) COPD exacerbation Status: Acute (4) Fall Status: Acute (5) Head injury Status: Acute (6) Hypertension Status: Acute (7) Mood disorder Status: Acute (8) Orthostatic dizziness Status: Acute (9) Scalp laceration Status: Acute Review of Systems Constitutional: + weakness, + fatigue Psychiatric: + anxiety All Other Systems: Reviewed and Negative Medications Current Inpatient Medications Medications (Trade) Dose Ordered Sig/Frances Route Start Time Stop Time Status Last Admin Dose Admin Nitroglycerin (Nitrostat Tab) 0.4 mg UD PRN SL 01/19/18 13:00 02/18/18 12:59 Albuterol/ Ipratropium (Duoneb) 3 ml Q4H PRN INH 01/19/18 13:00 02/18/18 12:59 Miscellaneous Information (Icu Protocol For Hyperglycemia) 1 ea PRN PRN N/A 01/19/18 13:00 01/21/18 12:59 Lorazepam (Ativan Inj) PRN Dosing -Active Protocol Q1H PRN IV 01/19/18 13:00 02/18/18 12:59 01/20/18 07:47 1 MG Tiotropium [place] (Spiriva Handihaler Inhaler) 1 puff DAILY INH 01/20/18 09:00 02/19/18 08:59 01/20/18 09:45 1 PUFF Budesonide/ Formoterol Fumarate (Symbicort 160/ 4.5 Inh) 2 puffs BID INH 01/19/18 21:00 02/18/18 20:59 01/20/18 09:44 2 PUFFS Pantoprazole Sodium 40 mg/ Syringe 10 ml @ 5 mls/min DAILY@1100 IV 01/20/18 11:00 01/23/18 11:01 01/20/18 13:40 5 MLS/MIN Thiamine HCl (Vitamin B-1 Tab) 100 mg QAM PO 01/20/18 09:00 02/19/18 08:59 01/20/18 09:47 100 MG Sertraline HCl (Zoloft Tab) 100 mg QAM PO 01/20/18 09:00 02/19/18 08:59 01/20/18 09:47 100 MG Folic Acid (Folvite Tab) 1 mg QAM PO 01/20/18 09:00 02/19/18 08:59 01/20/18 09:47 1 MG Chlordiazepoxide (Librium Cap) 25 mg QID PO 01/20/18 13:00 02/19/18 12:59 01/20/18 13:07 25 MG Objective Vital Signs Date Time Temp Pulse Resp B/P (MAP) Pulse Ox O2 Delivery O2 Flow Rate FiO2 01/20/18 11:24 36.5 95 18 95 01/20/18 11:16 36.5 95 18 114/72 (86) 95 Room Air 01/20/18 10:00 36.8 99 26 133/92 (106) 94 Room Air 01/20/18 08:00 94 Room Air 01/20/18 08:00 36.8 83 11 147/93 (111) 94 Room Air 01/20/18 06:00 86 18 144/87 (106) 96 Room Air 01/20/18 04:00 94 Room Air 01/20/18 04:00 36.7 87 15 118/79 (92) 94 Room Air 01/20/18 02:00 83 14 144/81 (102) 96 Room Air 01/20/18 00:01 36.8 85 14 168/92 (117) 94 Room Air 01/19/18 23:59 94 Room Air 01/19/18 22:01 80 16 148/86 (106) 96 Room Air 01/19/18 20:00 37.0 85 20 159/91 (113) 95 Room Air 01/19/18 20:00 Room Air 01/19/18 18:00 84 16 132/83 (99) 95 Room Air 01/19/18 18:00 84 16 132/83 (91) 95 01/19/18 17:00 85 20 135/83 (100) 94 Room Air 01/19/18 16:02 96 Room Air 01/19/18 16:00 37.2 91 18 159/93 (115) 95 Room Air 01/19/18 14:30 37.2 102 18 188/105 97 Room Air Physical Exam General Appearance: WD/WN, no apparent distress Eyes: normal inspection, EOMI, sclerae normal ENT: normal ENT inspection, hearing grossly normal, pharynx normal Neck: supple, no adenopathy, no JVD, trachea midline Respiratory/Chest: chest non-tender, lungs clear, normal breath sounds, no respiratory distress, no accessory muscle use Cardiovascular: regular rate, rhythm, no edema, no gallop, no JVD Abdomen: normal bowel sounds, non tender, soft, no organomegaly Extremities: normal range of motion, non-tender, normal inspection, no pedal edema, no calf tenderness, pelvis stable Neurologic/Psychiatric: head teller II-XII nml as tested, no motor/sensory deficits, alert, normal mood/affect, oriented x 3 Skin: normal color, warm/dry, no rash Laboratory Results Last 24 Hours Test 01/19/18 18:23 01/19/18 20:05 01/20/18 05:25 01/20/18 05:28 Bedside Glucose 113 mg/dl 113 mg/dl 99 mg/dl White Blood Count 8.45 K/uL Red Blood Count 4.96 M/uL Hemoglobin 15.6 g/dL Hematocrit 43.7 % Mean Corpuscular Volume 88.1 fL Mean Corpuscular Hemoglobin 31.5 pg Mean Corpuscular Hemoglobin Concent 35.7 g/dl Platelet Count 133 K/uL Mean Platelet Volume 10.0 fL Neutrophils (%) (Auto) 79.1 % Lymphocytes (%) (Auto) 11.8 % Monocytes (%) (Auto) 7.5 % Eosinophils (%) (Auto) 1.2 % Basophils (%) (Auto) 0.2 % Neutrophils # (Auto) 6.68 K/uL Lymphocytes # (Auto) 1.00 K/uL Monocytes # (Auto) 0.63 K/uL Eosinophils # (Auto) 0.10 K/uL Basophils # (Auto) 0.02 K/uL RDW Standard Deviation 43.2 fL RDW Coefficient of Variation 13.4 % Immature Granulocyte % (Auto) 0.2 % Immature Granulocyte # (Auto) 0.02 K/uL Prothrombin Time 10.0 SECONDS Prothromb Time International Ratio 1.0 Activated Partial Thromboplast Time 26.4 SECONDS Partial Thromboplastin Ratio 1.0 Sodium Level 136 mmol/L Potassium Level 3.7 mmol/L Chloride Level 99 mmol/L Carbon Dioxide Level 26 mmol/L Anion Gap 11.0 mmol/L Blood Urea Nitrogen 19 mg/dl Creatinine 1.08 mg/dl Est Creatinine Clear Calc Drug Dose 68.1 ml/min Estimated GFR () 79.6 Estimated GFR (Non- 68.7 BUN/Creatinine Ratio 17.3 Random Glucose 103 mg/dl Calcium Level 8.4 mg/dl Phosphorus Level 2.4 mg/dl Magnesium Level 2.4 mg/dl Total Bilirubin 1.3 mg/dl Direct Bilirubin 0.3 mg/dl Aspartate Amino Transf (AST/SGOT) 68 U/L Alanine Aminotransferase (ALT/SGPT) 37 U/L Alkaline Phosphatase 80 U/L Total Protein 7.2 gm/dl Albumin 3.4 gm/dl Test 01/20/18 11:30 Bedside Glucose 170 mg/dl Assessment and Plan 73 yo male with h/o alcoholism with recent rehab here in the fall, presented with alcohol intoxication, hallucinations - Alcohol intoxication, now with signs of withdrawal continue Librium scheduled, use Ativan as needed folate and thiamine supplements IV fluids transfer to medical floor patient not interested in rehab, although he is interested in detox - Elevated blood pressure likely from withdrawal symptoms, resolved today on Librium and Ativan - COPD: breathing stable, lungs clear, continue Symbicort - Depression: Zoloft - DVT prophylaxis: Lovenox
--- NOTE | 2018-01-20 16:38 | Critical Care Progress Note ---
Critical Care Progress Note Date of Service Jan 20, 2018. Attending Dr. Blevins Subjective No events overnight, the patient did not have significant withdrawal, no alcohol related hallucination neither visual or auditory, the patient did receive total of 7 mg of Ativan and separate doses, no tremor, and the patient claims he never went to withdrawal from abstinence from alcohol. Objective 01/20/2018 physical exam does not reveal any tremor by extending the arms, vital signs remained stable, distant breath sounds bilaterally, S1-S2 regular rate and rhythm, abdomen is benign, no edema. Neurologically he is nonfocal and does not appear to be in withdrawal. Assessment & Plan #1 COPD, gold level II, noncompliant with his medications. #2 EtOH abuse, due to the loss of his family member, his in fact. Never been in withdrawal. #3 no evidence of DVT at this point. Plan: #1 given the patient being lucid, I will start him empirically on Librium 25 mg by mouth 4 times a day. #2 change thiamine and folic acid to oral. #3 start bronchodilators with long-acting and short-acting beta agonist to be. #[address] Cano inputs and acceptance of this patient to regular floor. #5 he will need a follow-up with pulmonary at some point if he is agreeable. However, [facility] Discussed with the staff on rounds and details. All his labs has been corrected. Tolerating oral intake. CCT 35 minutes. Data Medications: Current Inpatient Medications Medications (Trade) Dose Ordered Sig/Frances Route Start Time Stop Time Status Last Admin Dose Admin Nitroglycerin (Nitrostat Tab) 0.4 mg UD PRN SL 01/19/18 13:00 02/18/18 12:59 Albuterol/ Ipratropium (Duoneb) 3 ml Q4H PRN INH 01/19/18 13:00 02/18/18 12:59 Miscellaneous Information (Icu Protocol For Hyperglycemia) 1 ea PRN PRN N/A 01/19/18 13:00 01/21/18 12:59 Lorazepam (Ativan Inj) PRN Dosing -Active Protocol Q1H PRN IV 01/19/18 13:00 02/18/18 12:59 01/20/18 07:47 1 MG Tiotropium [place] (Spiriva Handihaler Inhaler) 1 puff DAILY INH 01/20/18 09:00 02/19/18 08:59 01/20/18 09:45 1 PUFF Budesonide/ Formoterol Fumarate (Symbicort 160/ 4.5 Inh) 2 puffs BID INH 01/19/18 21:00 02/18/18 20:59 01/20/18 09:44 2 PUFFS Pantoprazole Sodium 40 mg/ Syringe 10 ml @ 5 mls/min DAILY@1100 IV 01/20/18 11:00 01/23/18 11:01 01/20/18 13:40 5 MLS/MIN Thiamine HCl (Vitamin B-1 Tab) 100 mg QAM PO 01/20/18 09:00 02/19/18 08:59 01/20/18 09:47 100 MG Sertraline HCl (Zoloft Tab) 100 mg QAM PO 01/20/18 09:00 02/19/18 08:59 01/20/18 09:47 100 MG Folic Acid (Folvite Tab) 1 mg QAM PO 01/20/18 09:00 02/19/18 08:59 01/20/18 09:47 1 MG Chlordiazepoxide (Librium Cap) 25 mg QID PO 01/20/18 13:00 02/19/18 12:59 01/20/18 16:31 25 MG Enoxaparin Sodium (Lovenox Inj) 40 mg QAM SQ 01/21/18 09:00 02/20/18 08:59 I & O: 24-Hour Column 01/21/18 07:59 Intake Total 40 ml Output Total 300 ml Balance -260 ml Vital Signs: Date Time Temp Pulse Resp B/P (MAP) Pulse Ox O2 Delivery O2 Flow Rate FiO2 01/20/18 11:24 36.5 95 18 95 01/20/18 11:16 36.5 95 18 114/72 (86) 95 Room Air 01/20/18 10:00 36.8 99 26 133/92 (106) 94 Room Air 01/20/18 08:00 94 Room Air 01/20/18 08:00 36.8 83 11 147/93 (111) 94 Room Air 01/20/18 06:00 86 18 144/87 (106) 96 Room Air 01/20/18 04:00 94 Room Air 01/20/18 04:00 36.7 87 15 118/79 (92) 94 Room Air 01/20/18 02:00 83 14 144/81 (102) 96 Room Air 01/20/18 00:01 36.8 85 14 168/92 (117) 94 Room Air 01/19/18 23:59 94 Room Air 01/19/18 22:01 80 16 148/86 (106) 96 Room Air 01/19/18 20:00 37.0 85 20 159/91 (113) 95 Room Air 01/19/18 20:00 Room Air 01/19/18 18:00 84 16 132/83 (99) 95 Room Air 01/19/18 18:00 84 16 132/83 (91) 95 01/19/18 17:00 85 20 135/83 (100) 94 Room Air Laboratory Results: Last 24 Hours Test 01/19/18 18:23 01/19/18 20:05 01/20/18 05:25 01/20/18 05:28 Bedside Glucose 113 mg/dl 113 mg/dl 99 mg/dl White Blood Count 8.45 K/uL Red Blood Count 4.96 M/uL Hemoglobin 15.6 g/dL Hematocrit 43.7 % Mean Corpuscular Volume 88.1 fL Mean Corpuscular Hemoglobin 31.5 pg Mean Corpuscular Hemoglobin Concent 35.7 g/dl Platelet Count 133 K/uL Mean Platelet Volume 10.0 fL Neutrophils (%) (Auto) 79.1 % Lymphocytes (%) (Auto) 11.8 % Monocytes (%) (Auto) 7.5 % Eosinophils (%) (Auto) 1.2 % Basophils (%) (Auto) 0.2 % Neutrophils # (Auto) 6.68 K/uL Lymphocytes # (Auto) 1.00 K/uL Monocytes # (Auto) 0.63 K/uL Eosinophils # (Auto) 0.10 K/uL Basophils # (Auto) 0.02 K/uL RDW Standard Deviation 43.2 fL RDW Coefficient of Variation 13.4 % Immature Granulocyte % (Auto) 0.2 % Immature Granulocyte # (Auto) 0.02 K/uL Prothrombin Time 10.0 SECONDS Prothromb Time International Ratio 1.0 Activated Partial Thromboplast Time 26.4 SECONDS Partial Thromboplastin Ratio 1.0 Sodium Level 136 mmol/L Potassium Level 3.7 mmol/L Chloride Level 99 mmol/L Carbon Dioxide Level 26 mmol/L Anion Gap 11.0 mmol/L Blood Urea Nitrogen 19 mg/dl Creatinine 1.08 mg/dl Est Creatinine Clear Calc Drug Dose 68.1 ml/min Estimated GFR () 79.6 Estimated GFR (Non- 68.7 BUN/Creatinine Ratio 17.3 Random Glucose 103 mg/dl Calcium Level 8.4 mg/dl Phosphorus Level 2.4 mg/dl Magnesium Level 2.4 mg/dl Total Bilirubin 1.3 mg/dl Direct Bilirubin 0.3 mg/dl Aspartate Amino Transf (AST/SGOT) 68 U/L Alanine Aminotransferase (ALT/SGPT) 37 U/L Alkaline Phosphatase 80 U/L Total Protein 7.2 gm/dl Albumin 3.4 gm/dl Test 01/20/18 11:30 Bedside Glucose 170 mg/dl
[2018-01-20] MEDS ORDERED: LORAZEPAM 1 MG TAB PO STA (18:07)
[2018-01-21 07:05] LABS: BASO % 0.3 %; BASO ABS # 0.02 K/uL (0-0.2); EOS % 2.7 %; EOS ABS # 0.21 K/uL (0-0.5); HEMATOCRIT 43.9 % (42-52); HEMOGLOBIN 15.5 g/dL (14.0-18.0); IG# 0.02 K/uL (0.00-0.02); LYMPH % 17.3 %; LYMPH ABS # 1.34 K/uL (1.2-3.4); MEAN CELL VOLUME 87.6 fL (80-100); MEAN CORPUSCULAR HEMOGLOBIN 30.9 pg (25-34); MEAN CORPUSCULAR HGB CONC 35.3 g/dl (32-36); MEAN PLATELET VOLUME 9.8 fL (7.4-10.4); MONO % 8.4 %; MONO ABS # 0.65 K/uL (0.11-0.59); PLATELET COUNT 106 K/uL (130-400); RED CELL DISTRIBUTION WIDTH CV 13.3 % (11.5-14.5); RED CELL DISTRIBUTION WIDTH SD 42.7 fL (36.4-46.3); WHITE BLOOD COUNT 7.74 K/uL (4.8-10.8)
[2018-01-21 07:14] LABS: PTT PATIENT 26.8 SECONDS (21.0-31.0)
[2018-01-21 07:19] VITALS: BP 130/85; PULSE 78; TEMP 36.7; O2SAT 96
[2018-01-21 07:22] LABS: ALBUMIN 3.2 gm/dl (3.4-5.0); CALCIUM 8.5 mg/dl (8.5-10.1); CREATININE 1.12 mg/dl (0.60-1.40); POTASSIUM 3.3 mmol/L (3.5-5.1)
[2018-01-21 07:25] LABS: PHOSPHORUS 2.8 mg/dl (2.5-4.9)
[2018-01-21 08:00] VITALS: O2SAT 96
[2018-01-21] MEDS: TIOTROPIUM BROMIDE 5 PUFF/90 MCG INH INH SCH (08:19)
[2018-01-21] MEDS: BUDESONIDE/FORMOTEROL FUMARATE 160/4.5 60 PUFFS/INHALER INH SCH ×2 (08:20→20:44)
[2018-01-21] MEDS: POTASSIUM CHLORIDE 20 MEQ TABCR PO SCH ×2 (08:26→09:14)
[2018-01-21] MEDS: CHLORDIAZEPOXIDE 25 MG CAP PO SCH ×4 (08:26→20:44)
[2018-01-21] MEDS: LORAZEPAM 1 MG TAB PO PRN ×2 (08:26→23:46)
[2018-01-21] MEDS: SERTRALINE HCL 100 MG TAB PO SCH (09:14)
[2018-01-21] MEDS: THIAMINE HCL 100 MG TAB PO SCH (09:14)
[2018-01-21] MEDS: ENOXAPARIN 40 MG/0.4 ML SYR SQ SCH (09:17)
[2018-01-21] MEDS: PANTOprazole INJ 40 MG in SYRINGE 0 ML IV SCH (09:47)
[2018-01-21] MEDS ORDERED: ONDANSETRON INJ 2 MG/ML 2 ML VIAL IV PRN (10:00)
[2018-01-21] MEDS ORDERED: ONDANSETRON INJ 2 MG/ML 2 ML VIAL IV STA (10:05)
[2018-01-21 15:53] VITALS: BP 121/80; PULSE 86; TEMP 36.7; O2SAT 95
[2018-01-21 16:00] VITALS: O2SAT 95
--- NOTE | 2018-01-21 16:17 | Progress Note ---
Subjective Date of Service: Jan 21, 2018. Subjective Pt evaluation today including: conversation w/ patient, physical exam, lab review, review of inpatient medication list Pain: no pain PO Intake: nausea this AM Voiding: dee catheter in place patient c/o fatigue, nausea, just wants to sleep today no tremors, mild depression poor appetite breathing fine K low at 3.3, otherwise labs good Problem List Medical Problems: (1) Alcohol intoxication Status: Acute (2) Alcohol intoxication Status: Acute (3) COPD exacerbation Status: Acute (4) Fall Status: Acute (5) Head injury Status: Acute (6) Hypertension Status: Acute (7) Mood disorder Status: Acute (8) Orthostatic dizziness Status: Acute (9) Scalp laceration Status: Acute Review of Systems Constitutional: + weakness, + fatigue Abdomen: + nausea All Other Systems: Reviewed and Negative Medications Current Inpatient Medications Medications (Trade) Dose Ordered Sig/Frances Route Start Time Stop Time Status Last Admin Dose Admin Nitroglycerin (Nitrostat Tab) 0.4 mg UD PRN SL 01/19/18 13:00 02/18/18 12:59 Albuterol/ Ipratropium (Duoneb) 3 ml Q4H PRN INH 01/19/18 13:00 02/18/18 12:59 Lorazepam (Ativan Inj) PRN Dosing -Active Protocol Q1H PRN IV 01/19/18 13:00 02/18/18 12:59 01/20/18 07:47 1 MG Tiotropium [place] (Spiriva Handihaler Inhaler) 1 puff DAILY INH 01/20/18 09:00 02/19/18 08:59 01/21/18 08:19 1 PUFF Budesonide/ Formoterol Fumarate (Symbicort 160/ 4.5 Inh) 2 puffs BID INH 01/19/18 21:00 02/18/18 20:59 01/21/18 08:20 2 PUFFS Pantoprazole Sodium 40 mg/ Syringe 10 ml @ 5 mls/min DAILY@1100 IV 01/20/18 11:00 01/23/18 11:01 01/21/18 09:47 5 MLS/MIN Thiamine HCl (Vitamin B-1 Tab) 100 mg QAM PO 01/20/18 09:00 02/19/18 08:59 2/20/18 09:14 100 MG Sertraline HCl (Zoloft Tab) 100 mg QAM PO 01/20/18 09:00 02/19/18 08:59 01/21/18 09:14 100 MG Folic Acid (Folvite Tab) 1 mg QAM PO 01/20/18 09:00 02/19/18 08:59 01/21/18 09:14 1 MG Chlordiazepoxide (Librium Cap) 25 mg QID PO 01/20/18 13:00 02/19/18 12:59 01/21/18 12:50 25 MG Enoxaparin Sodium (Lovenox Inj) 40 mg QAM SQ 01/21/18 09:00 02/20/18 08:59 01/21/18 09:17 40 MG Lorazepam (Ativan Tab) 1 mg Q8 PRN PO 01/20/18 18:15 02/19/18 18:14 01/21/18 08:26 1 MG Potassium Chloride (Klor-Con Tab) 20 meq BID PO 01/21/18 09:00 02/20/18 08:59 01/21/18 09:14 20 MEQ Ondansetron HCl (Zofran Inj) 4 mg Q4H PRN IV 01/21/18 10:00 02/20/18 09:59 Objective Vital Signs Date Time Temp Pulse Resp B/P (MAP) Pulse Ox O2 Delivery O2 Flow Rate FiO2 01/21/18 15:53 36.7 86 20 121/80 (94) 95 01/21/18 08:00 96 Room Air 01/21/18 07:19 36.7 78 16 130/85 (100) 96 Room Air 01/21/18 01:00 Room Air 01/20/18 23:58 36.7 77 16 115/72 (86) 93 Room Air Physical Exam General Appearance: WD/WN, no apparent distress Eyes: normal inspection, EOMI, sclerae normal ENT: normal ENT inspection, hearing grossly normal, pharynx normal Neck: supple, no adenopathy, no JVD, trachea midline Respiratory/Chest: chest non-tender, lungs clear, normal breath sounds, no respiratory distress, no accessory muscle use Cardiovascular: regular rate, rhythm, no edema, no gallop, no JVD, no murmur Abdomen: normal bowel sounds, non tender, soft, no organomegaly Extremities: normal range of motion, non-tender, normal inspection, no pedal edema, no calf tenderness, pelvis stable Neurologic/Psychiatric: display carver II-XII nml as tested, no motor/sensory deficits, alert, normal mood/affect, oriented x 3 Skin: normal color, warm/dry, no rash Laboratory Results Last 24 Hours Test 01/20/18 16:56 01/20/18 20:12 01/21/18 06:47 01/21/18 07:37 Bedside Glucose 139 mg/dl 118 mg/dl 97 mg/dl White Blood Count 7.74 K/uL Red Blood Count 5.01 M/uL Hemoglobin 15.5 g/dL Hematocrit 43.9 % Mean Corpuscular Volume 87.6 fL Mean Corpuscular Hemoglobin 30.9 pg Mean Corpuscular Hemoglobin Concent 35.3 g/dl Platelet Count 106 K/uL Mean Platelet Volume 9.8 fL Neutrophils (%) (Auto) 71.0 % Lymphocytes (%) (Auto) 17.3 % Monocytes (%) (Auto) 8.4 % Eosinophils (%) (Auto) 2.7 % Basophils (%) (Auto) 0.3 % Neutrophils # (Auto) 5.50 K/uL Lymphocytes # (Auto) 1.34 K/uL Monocytes # (Auto) 0.65 K/uL Eosinophils # (Auto) 0.21 K/uL Basophils # (Auto) 0.02 K/uL RDW Standard Deviation 42.7 fL RDW Coefficient of Variation 13.3 % Immature Granulocyte % (Auto) 0.3 % Immature Granulocyte # (Auto) 0.02 K/uL Prothrombin Time 10.0 SECONDS Prothromb Time International Ratio 1.0 Activated Partial Thromboplast Time 26.8 SECONDS Partial Thromboplastin Ratio 1.0 Sodium Level 137 mmol/L Potassium Level 3.3 mmol/L Chloride Level 103 mmol/L Carbon Dioxide Level 27 mmol/L Anion Gap 7.0 mmol/L Blood Urea Nitrogen 21 mg/dl Creatinine 1.12 mg/dl Est Creatinine Clear Calc Drug Dose 63.9 ml/min Estimated GFR () 76.2 Estimated GFR (Non- 65.7 BUN/Creatinine Ratio 19.0 Random Glucose 96 mg/dl Calcium Level 8.5 mg/dl Phosphorus Level 2.8 mg/dl Magnesium Level 2.4 mg/dl Total Bilirubin 1.1 mg/dl Direct Bilirubin 0.2 mg/dl Aspartate Amino Transf (AST/SGOT) 38 U/L Alanine Aminotransferase (ALT/SGPT) 32 U/L Alkaline Phosphatase 75 U/L Total Protein 7.0 gm/dl Albumin 3.2 gm/dl Test 01/21/18 11:14 Bedside Glucose 110 mg/dl Assessment and Plan 73 yo male with h/o alcoholism with recent rehab here in the fall, presented with alcohol intoxication, hallucinations - Alcohol intoxication, now with signs of withdrawal continue Librium scheduled, use Ativan as needed folate and thiamine supplements IV fluids patient not interested in rehab, although he is interested in detox keep hospitalized today, not ready to go home - Elevated blood pressure likely from withdrawal symptoms, resolved on Librium and Ativan - COPD: breathing stable, lungs clear, continue Symbicort - Depression: Zoloft - Nausea: may have been from potassium, treat with Zofran - Hypokalemia: potassium chloride 20mEq this AM - DVT prophylaxis: Lovenox
[2018-01-21 23:32] VITALS: BP_SYST 127; BP_SYST 174; BP_DIAS 105; BP_DIAS 85; PULSE 96; TEMP 36.8; O2SAT 95
[2018-01-22] MEDS: CHLORDIAZEPOXIDE 25 MG CAP PO SCH ×4 (06:45→21:53)
[2018-01-22 06:52] VITALS: BP 136/88; PULSE 68; TEMP 36.8; O2SAT 95
[2018-01-22] MEDS: POTASSIUM CHLORIDE 20 MEQ TABCR PO SCH ×2 (07:10→21:54)
[2018-01-22] MEDS: THIAMINE HCL 100 MG TAB PO SCH (07:10)
[2018-01-22] MEDS: SERTRALINE HCL 100 MG TAB PO SCH (07:10)
[2018-01-22] MEDS: TIOTROPIUM BROMIDE 5 PUFF/90 MCG INH INH SCH (07:14)
[2018-01-22] MEDS: BUDESONIDE/FORMOTEROL FUMARATE 160/4.5 60 PUFFS/INHALER INH SCH ×2 (07:14→21:53)
[2018-01-22] MEDS: ENOXAPARIN 40 MG/0.4 ML SYR SQ SCH (07:14)
[2018-01-22 07:15] LABS: BASO % 0.2 %; BASO ABS # 0.02 K/uL (0-0.2); EOS % 3.7 %; HEMATOCRIT 42.6 % (42-52); HEMOGLOBIN 14.8 g/dL (14.0-18.0); IG# 0.03 K/uL (0.00-0.02); LYMPH % 17.1 %; LYMPH ABS # 1.39 K/uL (1.2-3.4); MEAN CELL VOLUME 89.7 fL (80-100); MEAN CORPUSCULAR HEMOGLOBIN 31.2 pg (25-34); MEAN CORPUSCULAR HGB CONC 34.7 g/dl (32-36); MEAN PLATELET VOLUME 10.5 fL (7.4-10.4); MONO % 5.8 %; MONO ABS # 0.47 K/uL (0.11-0.59); NEUT % 72.8 %; NEUT ABS # 5.91 K/uL (1.4-6.5); PLATELET COUNT 119 K/uL (130-400); RED CELL DISTRIBUTION WIDTH CV 13.1 % (11.5-14.5); RED CELL DISTRIBUTION WIDTH SD 43.3 fL (36.4-46.3); WHITE BLOOD COUNT 8.12 K/uL (4.8-10.8)
[2018-01-22 07:22] LABS: INR 0.9 (0.9-1.1); PTT PATIENT 26.1 SECONDS (21.0-31.0)
[2018-01-22 07:47] LABS: ALBUMIN 3.2 gm/dl (3.4-5.0); CALCIUM 8.2 mg/dl (8.5-10.1); CREATININE 1.19 mg/dl (0.60-1.40); POTASSIUM 3.7 mmol/L (3.5-5.1)
[2018-01-22 07:48] LABS: PHOSPHORUS 3.1 mg/dl (2.5-4.9); TOTAL PROTEIN 6.9 gm/dl (6.4-8.2)
[2018-01-22] MEDS: LORAZEPAM 1 MG TAB PO PRN ×2 (07:48→15:18)
[2018-01-22] MEDS ORDERED: FINASTERIDE 5 MG TAB PO ONE (10:30)
[2018-01-22] MEDS ORDERED: DOXAZosin MESYLATE TAB 4 MG TAB PO ONE (10:30)
[2018-01-22] MEDS ORDERED: DOXAZosin MESYLATE TAB 4 MG TAB PO SCH (10:30)
[2018-01-22] MEDS: PANTOprazole INJ 40 MG in SYRINGE 0 ML IV SCH (11:00)
--- NOTE | 2018-01-22 13:19 | Progress Note ---
Subjective Date of Service: Jan 22, 2018. Subjective Pt evaluation today including: conversation w/ patient, physical exam, lab review, review of inpatient medication list Pain: no pain PO Intake: adequate Voiding: requires PRN straight cath requesting finasteride and doxazosin, had to be straight cathed last night nausea better, eating more no tremors or agitation asking about rehab, will get PT/OT Problem List Medical Problems: (1) Alcohol intoxication Status: Acute (2) Alcohol intoxication Status: Acute (3) COPD exacerbation Status: Acute (4) Fall Status: Acute (5) Head injury Status: Acute (6) Hypertension Status: Acute (7) Mood disorder Status: Acute (8) Orthostatic dizziness Status: Acute (9) Scalp laceration Status: Acute Review of Systems Constitutional: + weakness, + fatigue Abdomen: + nausea Male : + slowing stream, + problem reported (retention) All Other Systems: Reviewed and Negative Medications Current Inpatient Medications Medications (Trade) Dose Ordered Sig/Frances Route Start Time Stop Time Status Last Admin Dose Admin Nitroglycerin (Nitrostat Tab) 0.4 mg UD PRN SL 01/19/18 13:00 02/18/18 12:59 Albuterol/ Ipratropium (Duoneb) 3 ml Q4H PRN INH 01/19/18 13:00 02/18/18 12:59 Lorazepam (Ativan Inj) PRN Dosing -Active Protocol Q1H PRN IV 01/19/18 13:00 02/18/18 12:59 01/20/18 07:47 1 MG Tiotropium [place] (Spiriva Handihaler Inhaler) 1 puff DAILY INH 01/20/18 09:00 02/19/18 08:59 01/22/18 07:14 1 PUFF Budesonide/ Formoterol Fumarate (Symbicort 160/ 4.5 Inh) 2 puffs BID INH 01/19/18 21:00 02/18/18 20:59 01/22/18 07:14 2 PUFFS Pantoprazole Sodium 40 mg/ Syringe 10 ml @ 5 mls/min DAILY@1100 IV 01/20/18 11:00 01/23/18 11:01 01/22/18 11:00 5 MLS/MIN Thiamine HCl (Vitamin B-1 Tab) 100 mg QAM PO 01/20/18 09:00 02/19/18 08:59 01/22/18 07:10 100 MG Sertraline HCl (Zoloft Tab) 100 mg QAM PO 01/20/18 09:00 02/19/18 08:59 01/22/18 07:10 100 MG Folic Acid (Folvite Tab) 1 mg QAM PO 01/20/18 09:00 02/19/18 08:59 01/22/18 07:10 1 MG Chlordiazepoxide (Librium Cap) 25 mg QID PO 01/20/18 13:00 02/19/18 12:59 01/22/18 12:16 25 MG Enoxaparin Sodium (Lovenox Inj) 40 mg QAM SQ 01/21/18 09:00 02/20/18 08:59 01/21/18 09:17 40 MG Lorazepam (Ativan Tab) 1 mg Q8 PRN PO 01/20/18 18:15 02/19/18 18:14 01/22/18 07:48 1 MG Potassium Chloride (Klor-Con Tab) 20 meq BID PO 01/21/18 09:00 02/20/18 08:59 01/22/18 07:10 20 MEQ Ondansetron HCl (Zofran Inj) 4 mg Q4H PRN IV 01/21/18 10:00 02/20/18 09:59 Doxazosin Mesylate (Cardura Tab) 4 mg DAILY PO 01/23/18 09:00 02/22/18 08:59 Finasteride (Proscar Tab) 5 mg DAILY PO 01/23/18 09:00 02/22/18 08:59 Objective Vital Signs Date Time Temp Pulse Resp B/P (MAP) Pulse Ox O2 Delivery O2 Flow Rate FiO2 01/22/18 08:00 Room Air 01/22/18 06:52 36.8 68 18 136/88 (104) 95 Room Air 01/22/18 00:35 Room Air 01/21/18 23:32 36.8 96 20 127/85 (99) 95 Room Air 01/21/18 16:00 95 Room Air 01/21/18 15:53 36.7 86 20 121/80 (94) 95 Physical Exam General Appearance: WD/WN, no apparent distress Eyes: normal inspection, EOMI, sclerae normal ENT: normal ENT inspection, hearing grossly normal, pharynx normal Neck: supple, no adenopathy, no JVD, trachea midline Respiratory/Chest: chest non-tender, lungs clear, normal breath sounds, no respiratory distress, no accessory muscle use Cardiovascular: regular rate, rhythm, no edema, no gallop, no JVD, no murmur Abdomen: normal bowel sounds, non tender, soft, no organomegaly Extremities: normal range of motion, non-tender, normal inspection, no pedal edema, no calf tenderness, pelvis stable Neurologic/Psychiatric: director of learning II-XII nml as tested, alert, normal mood/affect, oriented x 3, + motor weakness (generalized) Skin: normal color, warm/dry, no rash Lymphatic: no adenopathy Laboratory Results Last 24 Hours Test 01/21/18 16:12 01/21/18 20:30 01/22/18 06:57 01/22/18 07:35 Bedside Glucose 131 mg/dl 105 mg/dl 106 mg/dl White Blood Count 8.12 K/uL Red Blood Count 4.75 M/uL Hemoglobin 14.8 g/dL Hematocrit 42.6 % Mean Corpuscular Volume 89.7 fL Mean Corpuscular Hemoglobin 31.2 pg Mean Corpuscular Hemoglobin Concent 34.7 g/dl Platelet Count 119 K/uL Mean Platelet Volume 10.5 fL Neutrophils (%) (Auto) 72.8 % Lymphocytes (%) (Auto) 17.1 % Monocytes (%) (Auto) 5.8 % Eosinophils (%) (Auto) 3.7 % Basophils (%) (Auto) 0.2 % Neutrophils # (Auto) 5.91 K/uL Lymphocytes # (Auto) 1.39 K/uL Monocytes # (Auto) 0.47 K/uL Eosinophils # (Auto) 0.30 K/uL Basophils # (Auto) 0.02 K/uL RDW Standard Deviation 43.3 fL RDW Coefficient of Variation 13.1 % Immature Granulocyte % (Auto) 0.4 % Immature Granulocyte # (Auto) 0.03 K/uL Prothrombin Time 9.8 SECONDS Prothromb Time International Ratio 0.9 Activated Partial Thromboplast Time 26.1 SECONDS Partial Thromboplastin Ratio 1.0 Sodium Level 137 mmol/L Potassium Level 3.7 mmol/L Chloride Level 104 mmol/L Carbon Dioxide Level 28 mmol/L Anion Gap 5.0 mmol/L Blood Urea Nitrogen 21 mg/dl Creatinine 1.19 mg/dl Est Creatinine Clear Calc Drug Dose 60.2 ml/min Estimated GFR () 70.8 Estimated GFR (Non- 61.1 BUN/Creatinine Ratio 17.2 Random Glucose 92 mg/dl Calcium Level 8.2 mg/dl Phosphorus Level 3.1 mg/dl Magnesium Level 2.4 mg/dl Total Bilirubin 0.7 mg/dl Direct Bilirubin 0.2 mg/dl Aspartate Amino Transf (AST/SGOT) 24 U/L Alanine Aminotransferase (ALT/SGPT) 29 U/L Alkaline Phosphatase 77 U/L Total Protein 6.9 gm/dl Albumin 3.2 gm/dl Test 01/22/18 11:17 Bedside Glucose 95 mg/dl Assessment and Plan 73 yo male with h/o alcoholism with recent rehab in the fall, presented with alcohol intoxication, hallucinations - Alcohol intoxication, now with signs of withdrawal continue Librium scheduled, use Ativan as needed folate and thiamine supplements IV fluids, will stop patient not interested in rehab, although he is interested in detox keep hospitalized today, not ready to go home no further hallucinations - Elevated blood pressure likely from withdrawal symptoms, resolved on Librium and Ativan - COPD: breathing stable, lungs clear, continue Symbicort - Depression: Zoloft - Nausea: may have been from potassium, treat with Zofran - Hypokalemia: resolved, 3.7 today - Urinary retention: resume Finasteride and Doxazosin - DVT prophylaxis: Lovenox PT/OT ordered, try for rehab
[2018-01-22] MEDS ORDERED: NURSING VERBAL MED ORDER ONE (15:00)
[2018-01-22 15:46] VITALS: BP 149/87; PULSE 82; TEMP 36.9; O2SAT 95
[2018-01-22 23:04] VITALS: BP 128/78; PULSE 79; TEMP 36.3; O2SAT 96
[2018-01-23 06:57] LABS: BASO % 0.2 %; BASO ABS # 0.02 K/uL (0-0.2); EOS % 4.4 %; EOS ABS # 0.37 K/uL (0-0.5); HEMATOCRIT 42.7 % (42-52); HEMOGLOBIN 14.9 g/dL (14.0-18.0); IG# 0.05 K/uL (0.00-0.02); LYMPH % 16.2 %; LYMPH ABS # 1.35 K/uL (1.2-3.4); MEAN CELL VOLUME 90.1 fL (80-100); MEAN CORPUSCULAR HEMOGLOBIN 31.4 pg (25-34); MEAN CORPUSCULAR HGB CONC 34.9 g/dl (32-36); MEAN PLATELET VOLUME 11.3 fL (7.4-10.4); MONO % 5.7 %; MONO ABS # 0.48 K/uL (0.11-0.59); NEUT % 72.9 %; NEUT ABS # 6.08 K/uL (1.4-6.5); PLATELET COUNT 123 K/uL (130-400); RED CELL DISTRIBUTION WIDTH SD 43.5 fL (36.4-46.3); WHITE BLOOD COUNT 8.35 K/uL (4.8-10.8)
[2018-01-23 07:06] LABS: INR 0.9 (0.9-1.1); PTT PATIENT 25.4 SECONDS (21.0-31.0)
[2018-01-23 07:07] VITALS: BP 143/89; PULSE 70; TEMP 36.3; O2SAT 98
[2018-01-23 07:37] LABS: ALBUMIN 3.4 gm/dl (3.4-5.0); CALCIUM 8.6 mg/dl (8.5-10.1); CREATININE 1.32 mg/dl (0.60-1.40)
[2018-01-23 07:40] LABS: PHOSPHORUS 3.4 mg/dl (2.5-4.9); TOTAL PROTEIN 7.3 gm/dl (6.4-8.2)
[2018-01-23] MEDS: BUDESONIDE/FORMOTEROL FUMARATE 160/4.5 60 PUFFS/INHALER INH SCH ×2 (08:02→21:03)
[2018-01-23] MEDS: POTASSIUM CHLORIDE 20 MEQ TABCR PO SCH (08:03)
[2018-01-23] MEDS: FINASTERIDE 5 MG TAB PO SCH (08:03)
[2018-01-23] MEDS: TIOTROPIUM BROMIDE 5 PUFF/90 MCG INH INH SCH (08:03)
[2018-01-23] MEDS: DOXAZosin MESYLATE TAB 4 MG TAB PO SCH (08:04)
[2018-01-23] MEDS: SERTRALINE HCL 100 MG TAB PO SCH (08:04)
[2018-01-23] MEDS: THIAMINE HCL 100 MG TAB PO SCH (08:04)
[2018-01-23] MEDS: ENOXAPARIN 40 MG/0.4 ML SYR SQ SCH ×2 (08:04→08:08)
[2018-01-23] MEDS: CHLORDIAZEPOXIDE 25 MG CAP PO SCH ×4 (08:07→21:03)
[2018-01-23] MEDS ORDERED: SERTRALINE HCL 100 MG TAB PO SCH (09:00)
[2018-01-23] MEDS: LORAZEPAM 1 MG TAB PO PRN (09:53)
[2018-01-23] MEDS: PANTOprazole INJ 40 MG in SYRINGE 0 ML IV SCH (11:16)
--- NOTE | 2018-01-23 13:15 | Psychiatric Consultation ---
Consultation Date of Consultation Jan 23, 2018. Identifying Data The patient is a 73-year-old gentleman with known alcoholism and COPD, who was brought to the emergency department by ambulance after a safety check requested by his sons who could not reach him. They completed a 302 petition her statement in a warrant was issued. Initially they thought they would be referring for mental health treatment however he began to hallucinate and was admitted for management of alcohol withdrawal. We are consulted to evaluate depression and need for hospitalization. Information is gathered from the patient, the electronic medical record, and the 302 petition her statement. All are considered to be reliable. Chief Complaint "I lost my son and my last year". History of Present Illness The patient is a 73-year-old gentleman who lives alone in [place]. He is known to our service from previous consults for depression and alcohol dependence. The patient claims to have had a period of 14 years were he was sober but several years ago when he lost both his son who committed suicide, and his long-term partner Yue, he began to drink again and has had off-and-on relapses for the last several years. He was most recently [facility] been [facility] in [facility]. He currently says that he is drinking about one fifth of alcohol per day. Prior to admission , the patient had been drinking consistently and when his children tried to contact him they could not reach him. Therefore his son Demar called the police to have a safety check done and issued a 302 petition her statement. In that statements his son indicates that he been drinking nonstop since January 13, believed that he was a risk to himself because he was not able to function. He noted that he had been found naked and disoriented when the police did a safety check. Demar says that he is off his medications and when he is off his medications becomes delusional and doesn't understand that he starting him self- harm. He believes that he's been so intoxicated he is not taking care of himself. Son expressed concern that his father may not been paying his bills, therefore would be at risk of losing his heat in the cold weather. Demar apparently spoke to him on that Saturday during the conversation the patient was talking about the of his long-term partner and about the of his son from 2012. He notes the patient is fallen down multiple times and believes that he will continue to drink until he kills himself. He also notes that his father is in violation of his parole by drinking. At the time of my interview, the patient is alert and cooperative. He readily admits that he is sad since losing his son and his long-term partner Yue. He denies that he is having any kind of suicidal thoughts and that his drinking is not intended in a suicide attempt. He admits that he has been relapsing on and off since the of those loved ones. He indicates his sleep has been okay, he believes he is eating or denies that he is lost any weight. He specifically denies again any suicidal ideation but does say he has anxiety because of his legal concerns. He is worried that in violation of his probation, he will need to go back to intermediate. He admits that when he is drinking he does not tend to eat but stick still drinking and smoking cigarettes. He did admit to the liaison nurse when seen earlier that although he isn't suicidal he doesn't feel like he has a lot of reasons to live saying that he once had a good life and now feels that he doesn't. He admits to having little in the way of supports locally. He tends to use his children as his supports and acknowledges that he has been pushing them away lately. He would like to be able to return to his house, work toward regaining his sobriety and "stay close to my children". Past Psychiatric History Prior OP Treatment: psychiatrist (Dr. Wu at the [facility]), therapist ( Valente Villatoro [facility]) Access to a Gun: No Past Medication Trials Doesn't remember Past Medical/Surgical History History of Concussion/Seizure: Yes (has had multiple falls in which he has hit his head) (1) Alcohol withdrawal (2) COPD (chronic obstructive pulmonary disease) Allergies Allergies: Coded Allergies: No Known Allergies (Unverified , 07/03/17) Home Medications Scheduled Doxazosin Mesylate (Cardura), 4 MG PO DAILY Finasteride (Proscar), 5 MG PO DAILY Folic Acid (Folvite), 1 MG PO DAILY Sertraline (Zoloft), 100 MG PO DAILY Tiotropium [place] (Spiriva Handihaler), 1 CAP INH DAILY Miscellaneous Medications Budesonide/Formoterol Fumarate (Symbicort 160/4.5 Inhaler ), 2 PUFFS INH Family History Diabetes mellitus Heart disease Hypertension History of Suicide: Yes (likely his son who 3 years ago) History of Substance Abuse: Yes (son drugs and alcohol) Psychiatric History: No Alcohol Use Alcohol Use In Past 12 Months: Yes (drinking a fifth a day. 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 Relationship History: other (long-term partner 3 years ago) Children: 3 sons, 1 , one daughter Legal History: reported (currently on federal and state probation due to an issue with guns) Psychological Trauma History: Significant Loss, Combat Experiences Review of Systems Constitutional: malaise, weakness Eyes: denies: no symptoms, as stated in HPI, eye pain, tearing, itching, redness, discharge, double vision, visual changes, blurred vision, photophobia, other ENT: reports: other (poor dentition) Cardiovascular: denies: no symptoms reported, see HPI, chest pain, chest tightness, chest pressure, diaphoresis, palpitations, syncope, other Respiratory: reports: short of breath (with exertion) Gastrointestinal: denies no symptoms reported, denies see HPI, denies abdominal pain, denies constipation, denies diarrhea, denies nausea, denies vomiting, denies other Genitourinary - Male: reports: other (inability to urinate currently requiring straight cath) Musculoskeletal: other (multiple bruises over his head and upper extremities with some pain upon movement) Integumentary: other (multiple bruised sites) Neurologic: denies: no symptoms, see HPI, headache, numbness, paresthesias, pre -existing deficit, seizure, tingling, tremors, general weakness, tics, focal weakness, vertigo, lethargy, memory loss, dizziness, other Endocrine: denies: no symptoms, as stated in HPI, cold intolerance, heat intolerance, hair changes, goiter, polydipsia, polyuria, skin changes, other Hematologic / Lymphatic: denies: no symptoms, as stated in HPI, abnormal clotting, adenopathy, anemia, easy bleeding, easy bruising, gums bleeding, petechiae, other Examination Vital Signs Vital Signs Past 12 Hours Date Time Temp Pulse Resp B/P (MAP) Pulse Ox O2 Delivery O2 Flow Rate FiO2 01/23/18 08:10 Room Air 01/23/18 07:07 36.3 70 18 143/89 (107) 98 Room Air Laboratory Results Last 24 Hours Test 01/23/18 06:25 01/23/18 07:33 White Blood Count 8.35 K/uL Red Blood Count 4.74 M/uL Hemoglobin 14.9 g/dL Hematocrit 42.7 % Mean Corpuscular Volume 90.1 fL Mean Corpuscular Hemoglobin 31.4 pg Mean Corpuscular Hemoglobin Concent 34.9 g/dl Platelet Count 123 K/uL Mean Platelet Volume 11.3 fL Neutrophils (%) (Auto) 72.9 % Lymphocytes (%) (Auto) 16.2 % Monocytes (%) (Auto) 5.7 % Eosinophils (%) (Auto) 4.4 % Basophils (%) (Auto) 0.2 % Neutrophils # (Auto) 6.08 K/uL Lymphocytes # (Auto) 1.35 K/uL Monocytes # (Auto) 0.48 K/uL Eosinophils # (Auto) 0.37 K/uL Basophils # (Auto) 0.02 K/uL RDW Standard Deviation 43.5 fL RDW Coefficient of Variation 13.0 % Immature Granulocyte % (Auto) 0.6 % Immature Granulocyte # (Auto) 0.05 K/uL Prothrombin Time 9.7 SECONDS Prothromb Time International Ratio 0.9 Activated Partial Thromboplast Time 25.4 SECONDS Partial Thromboplastin Ratio 1.0 Sodium Level 136 mmol/L Potassium Level 4.0 mmol/L Chloride Level 104 mmol/L Carbon Dioxide Level 25 mmol/L Anion Gap 7.0 mmol/L Blood Urea Nitrogen 21 mg/dl Creatinine 1.32 mg/dl Est Creatinine Clear Calc Drug Dose 54.2 ml/min Estimated GFR () 62.5 Estimated GFR (Non- 53.9 BUN/Creatinine Ratio 15.9 Random Glucose 102 mg/dl Calcium Level 8.6 mg/dl Phosphorus Level 3.4 mg/dl Magnesium Level 2.5 mg/dl Total Bilirubin 0.6 mg/dl Direct Bilirubin 0.2 mg/dl Aspartate Amino Transf (AST/SGOT) 20 U/L Alanine Aminotransferase (ALT/SGPT) 29 U/L Alkaline Phosphatase 77 U/L Total Protein 7.3 gm/dl Albumin 3.4 gm/dl Bedside Glucose 94 mg/dl Mental Examination During interview pt is: alert and oriented, cooperative Appearance: appropriately dressed Eye contact is: good Motor behavior is: no abnormal motor movements Speech: normal in rate, rhythm & volume Affect: depressed, flat Mood is: depressed Thought process: goal directed Thought content: reality based without delusions Suicidal thought are: denied Homicidal thoughts are: denied Hallucinations: denies auditory, denies visual Cognition: memory grossly intact, attention grossly intact, language grossly intact Intelligence estimated to be: average Insight: limited Judgement: limited Impression / Recommendations Impression 73-year-old gentleman admitted medically with alcohol withdrawal/DTs. We're consulted to evaluate depression, need for 302. Although the sons petitioners statement is particularly poignant given the losses the patient has had, it does not meet criteria for inpatient mental health treatment. His symptoms and lack of self-care have been in the setting of intoxication. Now that he is sober, he can clearly say he has no suicidal ideation and was not trying to kill himself with the alcohol. He does however readily admit that he is depressed and that his life has been severely impacted by the loss of his loved ones. I do not think that he meets criteria for a 302 and am recommending that that 302 petition be disposed as the patient is not in need of emergency involuntary treatment. That having been said, his chief commercial officer has been in contact with social service, and is concerned and asking that he consider for dual diagnosis treatment. I've discussed this with him and he is willing to consider this after he has been medically cleared. At this point he is having urinary retention and is extremely weak with a recommendation to go to [facility]. If at the time he is medically cleared he does not need to go to [facility], then social media strategist should present again to discuss his willingness to go to a dual diagnosis inpatient rehabilitation facility. Beyond this, his chief commercial officer has asked to be notified when he is being discharged which likely indicates that he will be going back to intermediate. I will take the liberty of increasing his Zoloft to 150 mg to target his mood. He should follow-up with Dr. [facility]. Inventory Assets Strengths: support of family Needs: Need to maintain sobriety Risk Factors Assessment Male: Yes : Yes /single/: Yes Higher / Fall in social status: No Access to guns: No Health problems: Yes Mental Health Diagnoses: Yes Substance use disorders: Yes Smoker: Yes Protective Factors Assessment : No Responsible for young children: No Employed: No Supportive family: Yes Recommendations (1) Major depressive disorder, recurrent, moderate 01/23 - Will increase Zoloft to 150 mg daily to target mood - The patient does not meet criteria for emergency involuntary treatment. We are recommending that the 302 petition be denied as unnecessary. - When medically cleared, social media strategist should approach the patient again about a dual diagnosis treatment for both substance use and depression - He [facility] (2) Alcohol dependence 01/23 - Recommend inpatient rehabilitation which the patient is willing to consider after he is medically cleared - No current symptoms of acute DTs - The patient is currently on Librium on a 4 times a day basis. The primary team might want to consider using Neurontin for detox instead of Librium given the fact that he has been at risk of falls at home. Dr. Bee Luo has been personally involved in the review of this case and the development of these recommendations.
[2018-01-23 15:35] VITALS: BP 162/83; PULSE 65; TEMP 36.3; O2SAT 96
--- NOTE | 2018-01-23 20:11 | Progress Note ---
Subjective Date of Service: Jan 23, 2018. Subjective Pt evaluation today including: conversation w/ patient, physical exam, lab review, review of inpatient medication list Pain: no pain PO Intake: adequate Voiding: requires PRN straight cath patient still complaining of urinary retention, difficulty passing urine otherwise he is doing well still feels weak, wants to go to rehab he may be agreeable to alcohol rehab with treatment for depression once medically sable appreciate psychiatry consult will place urology consult since patient continues to have retention Problem List Medical Problems: (1) Alcohol intoxication Status: Acute (2) Alcohol intoxication Status: Acute (3) COPD exacerbation Status: Acute (4) Fall Status: Acute (5) Head injury Status: Acute (6) Hypertension Status: Acute (7) Mood disorder Status: Acute (8) Orthostatic dizziness Status: Acute (9) Scalp laceration Status: Acute Review of Systems Constitutional: + weakness, + fatigue Male : + slowing stream, + problem reported (retention) Neurologic: + weakness, + balance problems Psychiatric: + depression symptoms All Other Systems: Reviewed and Negative Medications Current Inpatient Medications Medications (Trade) Dose Ordered Sig/Frances Route Start Time Stop Time Status Last Admin Dose Admin Nitroglycerin (Nitrostat Tab) 0.4 mg UD PRN SL 01/19/18 13:00 02/18/18 12:59 Albuterol/ Ipratropium (Duoneb) 3 ml Q4H PRN INH 01/19/18 13:00 02/18/18 12:59 Lorazepam (Ativan Inj) PRN Dosing -Active Protocol Q1H PRN IV 01/19/18 13:00 02/18/18 12:59 01/20/18 07:47 1 MG Tiotropium [place] (Spiriva Handihaler Inhaler) 1 puff DAILY INH 01/20/18 09:00 02/19/18 08:59 01/23/18 08:03 1 PUFF Budesonide/ Formoterol Fumarate (Symbicort 160/ 4.5 Inh) 2 puffs BID INH 01/19/18 21:00 02/18/18 20:59 01/23/18 08:02 2 PUFFS Thiamine HCl (Vitamin B-1 Tab) 100 mg QAM PO 01/20/18 09:00 02/19/18 08:59 01/23/18 08:04 100 MG Folic Acid (Folvite Tab) 1 mg QAM PO 01/20/18 09:00 02/19/18 08:59 01/23/18 08:03 1 MG Chlordiazepoxide (Librium Cap) 25 mg QID PO 01/20/18 13:00 02/19/18 12:59 01/23/18 17:04 25 MG Enoxaparin Sodium (Lovenox Inj) 40 mg QAM SQ 01/21/18 09:00 02/20/18 08:59 01/21/18 09:17 40 MG Lorazepam (Ativan Tab) 1 mg Q8 PRN PO 01/20/18 18:15 02/19/18 18:14 01/23/18 09:53 1 MG Potassium Chloride (Klor-Con Tab) 20 meq BID PO 01/21/18 09:00 02/20/18 08:59 01/23/18 08:03 20 MEQ Ondansetron HCl (Zofran Inj) 4 mg Q4H PRN IV 01/21/18 10:00 02/20/18 09:59 Doxazosin Mesylate (Cardura Tab) 4 mg DAILY PO 01/23/18 09:00 02/22/18 08:59 01/23/18 08:04 4 MG Finasteride (Proscar Tab) 5 mg DAILY PO 01/23/18 09:00 02/22/18 08:59 01/23/18 08:03 5 MG Sertraline HCl (Zoloft Tab) 150 mg QAM PO 01/24/18 09:00 02/23/18 08:59 Objective Vital Signs Date Time Temp Pulse Resp B/P (MAP) Pulse Ox O2 Delivery O2 Flow Rate FiO2 01/23/18 15:50 Room Air 01/23/18 15:35 36.3 65 16 162/83 (109) 96 Room Air 01/23/18 08:10 Room Air 01/23/18 07:07 36.3 70 18 143/89 (107) 98 Room Air 01/23/18 00:00 Room Air 01/22/18 23:04 36.3 79 18 128/78 (95) 96 Room Air 01/22/18 20:00 Room Air Physical Exam General Appearance: WD/WN, no apparent distress Eyes: normal inspection, EOMI, sclerae normal ENT: normal ENT inspection, hearing grossly normal, pharynx normal Neck: supple, no adenopathy, no JVD, trachea midline Respiratory/Chest: chest non-tender, lungs clear, normal breath sounds, no respiratory distress, no accessory muscle use Cardiovascular: regular rate, rhythm, no edema, no gallop, no JVD, no murmur Abdomen: normal bowel sounds, non tender, soft, no organomegaly Extremities: normal range of motion, non-tender, normal inspection, no pedal edema, no calf tenderness 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, no motor/sensory deficits, alert, oriented x 3, + depressed affect Laboratory Results Last 24 Hours Test 01/23/18 06:25 01/23/18 07:33 White Blood Count 8.35 K/uL Red Blood Count 4.74 M/uL Hemoglobin 14.9 g/dL Hematocrit 42.7 % Mean Corpuscular Volume 90.1 fL Mean Corpuscular Hemoglobin 31.4 pg Mean Corpuscular Hemoglobin Concent 34.9 g/dl Platelet Count 123 K/uL Mean Platelet Volume 11.3 fL Neutrophils (%) (Auto) 72.9 % Lymphocytes (%) (Auto) 16.2 % Monocytes (%) (Auto) 5.7 % Eosinophils (%) (Auto) 4.4 % Basophils (%) (Auto) 0.2 % Neutrophils # (Auto) 6.08 K/uL Lymphocytes # (Auto) 1.35 K/uL Monocytes # (Auto) 0.48 K/uL Eosinophils # (Auto) 0.37 K/uL Basophils # (Auto) 0.02 K/uL RDW Standard Deviation 43.5 fL RDW Coefficient of Variation 13.0 % Immature Granulocyte % (Auto) 0.6 % Immature Granulocyte # (Auto) 0.05 K/uL Prothrombin Time 9.7 SECONDS Prothromb Time International Ratio 0.9 Activated Partial Thromboplast Time 25.4 SECONDS Partial Thromboplastin Ratio 1.0 Sodium Level 136 mmol/L Potassium Level 4.0 mmol/L Chloride Level 104 mmol/L Carbon Dioxide Level 25 mmol/L Anion Gap 7.0 mmol/L Blood Urea Nitrogen 21 mg/dl Creatinine 1.32 mg/dl Est Creatinine Clear Calc Drug Dose 54.2 ml/min Estimated GFR () 62.5 Estimated GFR (Non- 53.9 BUN/Creatinine Ratio 15.9 Random Glucose 102 mg/dl Calcium Level 8.6 mg/dl Phosphorus Level 3.4 mg/dl Magnesium Level 2.5 mg/dl Total Bilirubin 0.6 mg/dl Direct Bilirubin 0.2 mg/dl Aspartate Amino Transf (AST/SGOT) 20 U/L Alanine Aminotransferase (ALT/SGPT) 29 U/L Alkaline Phosphatase 77 U/L Total Protein 7.3 gm/dl Albumin 3.4 gm/dl Bedside Glucose 94 mg/dl Assessment and Plan 73 yo male with h/o alcoholism with recent rehab in the fall, presented with alcohol intoxication, hallucinations - Alcohol intoxication, now with signs of withdrawal taper back Librium to twice a day, appreciate psychiatry recommendation to switch to Neurontin, will do that tomorrow folate and thiamine supplements patient now may be ready to consider inpatient alcohol rehab, wants physical rehab first - Elevated blood pressure likely from withdrawal symptoms, resolved on Librium and Ativan - COPD: breathing stable, lungs clear, continue Symbicort - Depression: Zoloft, dose increased to 150mg per psychiatry does not meet criteria for inpatient admission at this time - Hypokalemia: resolved, 4.0 today, will stop supplementation - Urinary retention: resumed Finasteride and Doxazosin but still with retention , 360cc in bladder this AM will ask Urology to evaluate, give recommendation - DVT prophylaxis: Lovenox PT/OT ordered, try for rehab at [facility]
[2018-01-24 00:14] VITALS: BP 157/92; PULSE 71; TEMP 36.4; O2SAT 97
[2018-01-24 07:21] VITALS: BP 133/79; PULSE 73; TEMP 36.6; O2SAT 95
[2018-01-24] MEDS: THIAMINE HCL 100 MG TAB PO SCH (07:56)
[2018-01-24] MEDS: DOXAZosin MESYLATE TAB 4 MG TAB PO SCH (07:56)
[2018-01-24] MEDS: BUDESONIDE/FORMOTEROL FUMARATE 160/4.5 60 PUFFS/INHALER INH SCH ×2 (07:56→20:42)
[2018-01-24] MEDS: FINASTERIDE 5 MG TAB PO SCH (07:57)
[2018-01-24] MEDS: CHLORDIAZEPOXIDE 25 MG CAP PO SCH (07:59)
[2018-01-24] MEDS: ENOXAPARIN 40 MG/0.4 ML SYR SQ SCH (08:23)
[2018-01-24 09:05] LABS: BASO % 0.1 %; BASO ABS # 0.01 K/uL (0-0.2); EOS % 3.8 %; EOS ABS # 0.32 K/uL (0-0.5); HEMATOCRIT 41.2 % (42-52); HEMOGLOBIN 14.1 g/dL (14.0-18.0); IG# 0.05 K/uL (0.00-0.02); LYMPH % 11.4 %; LYMPH ABS # 0.96 K/uL (1.2-3.4); MEAN CELL VOLUME 90.5 fL (80-100); MEAN CORPUSCULAR HGB CONC 34.2 g/dl (32-36); MEAN PLATELET VOLUME 11.1 fL (7.4-10.4); MONO % 4.6 %; MONO ABS # 0.39 K/uL (0.11-0.59); NEUT % 79.5 %; NEUT ABS # 6.69 K/uL (1.4-6.5); PLATELET COUNT 121 K/uL (130-400); RED CELL DISTRIBUTION WIDTH CV 13.2 % (11.5-14.5); RED CELL DISTRIBUTION WIDTH SD 43.8 fL (36.4-46.3); WHITE BLOOD COUNT 8.42 K/uL (4.8-10.8)
[2018-01-24 09:14] LABS: INR 0.9 (0.9-1.1); PTT PATIENT 24.2 SECONDS (21.0-31.0)
[2018-01-24] MEDS: TIOTROPIUM BROMIDE 5 PUFF/90 MCG INH INH SCH (09:36)
[2018-01-24] MEDS: SERTRALINE HCL 100 MG TAB PO SCH (09:37)
[2018-01-24 09:43] LABS: ALBUMIN 3.2 gm/dl (3.4-5.0); CALCIUM 8.3 mg/dl (8.5-10.1); CREATININE 1.23 mg/dl (0.60-1.40); POTASSIUM 4.2 mmol/L (3.5-5.1)
[2018-01-24 09:45] LABS: PHOSPHORUS 3.1 mg/dl (2.5-4.9)
--- NOTE | 2018-01-24 09:50 | Urology Consultation ---
History General Date of Service: Jan 24, 2018. Chief Complaint: urinary retention Primary Care Physician: Lydia Gaines C.R.N.P. Pt seen a urologist before?: Yes (Dr. Villatoro ) If yes, why?: BPH History of Present Illness 73 yo male admitted with DTs. consulted for UR. The pt has a hx of BPH for which he sees Dr. Villatoro. He is currently on doxazosin and finasteride for this issue. Previously recommended he have a TURP as well. He reports weak stream and straining to void since dee catheter removal this admission. Briefly off of his Cardura, but this has been restarted as well. Laboratory Last 24 Hours Test 01/24/18 07:26 01/24/18 08:43 Bedside Glucose 94 mg/dl White Blood Count 8.42 K/uL Red Blood Count 4.55 M/uL Hemoglobin 14.1 g/dL Hematocrit 41.2 % Mean Corpuscular Volume 90.5 fL Mean Corpuscular Hemoglobin 31.0 pg Mean Corpuscular Hemoglobin Concent 34.2 g/dl Platelet Count 121 K/uL Mean Platelet Volume 11.1 fL Neutrophils (%) (Auto) 79.5 % Lymphocytes (%) (Auto) 11.4 % Monocytes (%) (Auto) 4.6 % Eosinophils (%) (Auto) 3.8 % Basophils (%) (Auto) 0.1 % Neutrophils # (Auto) 6.69 K/uL Lymphocytes # (Auto) 0.96 K/uL Monocytes # (Auto) 0.39 K/uL Eosinophils # (Auto) 0.32 K/uL Basophils # (Auto) 0.01 K/uL RDW Standard Deviation 43.8 fL RDW Coefficient of Variation 13.2 % Immature Granulocyte % (Auto) 0.6 % Immature Granulocyte # (Auto) 0.05 K/uL Prothrombin Time 9.7 SECONDS Prothromb Time International Ratio 0.9 Activated Partial Thromboplast Time 24.2 SECONDS Partial Thromboplastin Ratio 0.9 Problem List Medical Problems: (1) Alcohol intoxication Status: Acute (2) Alcohol intoxication Status: Acute (3) COPD exacerbation Status: Acute (4) Fall Status: Acute (5) Head injury Status: Acute (6) Hypertension Status: Acute (7) Mood disorder Status: Acute (8) Orthostatic dizziness Status: Acute (9) Scalp laceration Status: Acute Past History BPH, COPD, hypertension, other (alcohol abuse) Past Surgical History: no surgical history Family History Diabetes mellitus Heart disease Hypertension Social History Hx Tobacco Use In Past Year?: Yes Smoking: other (current every day smoker ) Alcohol: history of alcohol abuse Drug use: none Marital status: Occupation status: employed History of MDRO No Allergies Coded Allergies: No Known Allergies (Unverified , 07/03/17) Medications Home Medications: Home Meds and Scripts Medications Dose Route/Sig Max Daily Dose Days Date Category Spiriva Handihaler (Tiotropium [place]) 30 Puff/540 Mcg Aerp 1 Cap INH DAILY 01/19/18 Reported Symbicort 160/4.5 Inhaler (Budesonide/Formoterol Fumarate) Unknown Strength Aero 2 Puffs INH 01/19/18 Reported Folvite (Folic Acid) 1 Mg Tab 1 Mg PO DAILY 01/19/18 Reported Proscar (Finasteride) 5 Mg Tab 5 Mg PO DAILY 01/19/18 Reported Cardura (Doxazosin Mesylate) 4 Mg Tab 4 Mg PO DAILY 01/19/18 Reported Zoloft (Sertraline HCl) 100 Mg Tab 100 Mg PO DAILY 11/07/17 Reported Inpatient Medications: Current Inpatient Medications Medications (Trade) Dose Ordered Sig/Frances Route Start Time Stop Time Status Last Admin Dose Admin Nitroglycerin (Nitrostat Tab) 0.4 mg UD PRN SL 01/19/18 13:00 02/18/18 12:59 Albuterol/ Ipratropium (Duoneb) 3 ml Q4H PRN INH 01/19/18 13:00 02/18/18 12:59 Lorazepam (Ativan Inj) PRN Dosing -Active Protocol Q1H PRN IV 01/19/18 13:00 02/18/18 12:59 01/20/18 07:47 1 MG Tiotropium [place] (Spiriva Handihaler Inhaler) 1 puff DAILY INH 01/20/18 09:00 02/19/18 08:59 01/24/18 09:36 1 PUFF Budesonide/ Formoterol Fumarate (Symbicort 160/ 4.5 Inh) 2 puffs BID INH 01/19/18 21:00 02/18/18 20:59 01/24/18 07:56 2 PUFFS Thiamine HCl (Vitamin B-1 Tab) 100 mg QAM PO 01/20/18 09:00 02/19/18 08:59 01/24/18 07:56 100 MG Folic Acid (Folvite Tab) 1 mg QAM PO 01/20/18 09:00 02/19/18 08:59 01/24/18 07:56 1 MG Enoxaparin Sodium (Lovenox Inj) 40 mg QAM SQ 01/21/18 09:00 02/20/18 08:59 01/21/18 09:17 40 MG Lorazepam (Ativan Tab) 1 mg Q8 PRN PO 01/20/18 18:15 02/19/18 18:14 01/23/18 09:53 1 MG Ondansetron HCl (Zofran Inj) 4 mg Q4H PRN IV 01/21/18 10:00 02/20/18 09:59 Doxazosin Mesylate (Cardura Tab) 4 mg DAILY PO 01/23/18 09:00 02/22/18 08:59 01/24/18 07:56 4 MG Finasteride (Proscar Tab) 5 mg DAILY PO 01/23/18 09:00 02/22/18 08:59 01/24/18 07:57 5 MG Sertraline HCl (Zoloft Tab) 150 mg QAM PO 01/24/18 09:00 02/23/18 08:59 01/24/18 09:37 150 MG Gabapentin (Neurontin Cap) 600 mg TID PO 01/24/18 09:00 01/24/18 23:00 UNV Review of Systems Review of Systems Constitutional: No fever, No chills Eyes: No double vision Neurological: No dizzy Endocrine: No excessive thirst Gastrointestinal: No abdominal pain, No nausea, No vomiting Cardiovascular: No chest pain Respiratory: No shortness of breath Skin: No rash Musculoskeletal: No back pain Male : + urinary retention, + weak stream Physical Exam Vital Signs: Vital Signs Past 12 Hours Date Time Temp Pulse Resp B/P (MAP) Pulse Ox O2 Delivery O2 Flow Rate FiO2 01/24/18 08:00 Room Air 01/24/18 07:21 36.6 73 18 133/79 (97) 95 Room Air 01/24/18 00:14 36.4 71 17 157/92 (113) 97 Room Air 01/24/18 00:00 Room Air Physical Exam: General Appearance: no apparent distress Eyes: bilateral eyes normal inspection ENT: hearing grossly normal Neck: no JVD Respiratory/Chest: no respiratory distress, no accessory muscle use Cardiovascular: no JVD Extremities: normal inspection Neurologic/Psychiatric: alert, normal mood/affect, oriented x 3 Skin: normal color Assessment & Plan Assessment & Plan A/P: BPH with UR AFVSS. Will place an 18Fr coude dee catheter this morning. Plan to leave in place for 7-10 days. Outpatient trial of void at that time. Continue finasteride and doxazosin. Will arrange for outpatient f/u with Dr. Villatoro in the next few weeks to discuss TURP again. Thanks for the consult. No further management at this time. Recall PRN issues. Thanks for allowing us to participate in this pt's care.
[2018-01-24] MEDS: GABAPENTIN 600 MG TAB PO SCH ×3 (11:05→20:42)
--- NOTE | 2018-01-24 12:50 | Psychiatric Progress Notes ---
Psychiatric Progress Note Date of Service Jan 24, 2018. Notes patient seen as f/u to initial consult. Reviewed 302 petition on chart from family re: his ETOH use. He has been cooperative with medical treatment, denies withdrawal at this time but still has dee. He remains amenable to rehab placement. He is oriented and without psychosis and has consistently denied SI in hospital. I agree that he is not actively committable under [place] mental health law. He is agreeable to appropriate intervention (D&A treatment) . Please notify liaison to reassess if additional concerns prior to placement or if not being discharged to rehab setting. 302 warrant will need dispositioned when medically cleared.
[2018-01-24 16:06] VITALS: BP 124/66; PULSE 72; TEMP 36.7; O2SAT 97
--- NOTE | 2018-01-24 16:27 | Progress Note ---
Subjective Date of Service: Jan 24, 2018. Subjective Pt evaluation today including: conversation w/ patient, physical exam, conversation w/ service delivery management consultant, review of inpatient medication list Pain: no pain PO Intake: adequate Voiding: dee catheter in place discussed with urology, will place dee, recommended TURP in the past d/w CM, rehab won't take him he'll need to reconsider alcohol rehab, patient not ready at this time Problem List Medical Problems: (1) Alcohol intoxication Status: Acute (2) Alcohol intoxication Status: Acute (3) COPD exacerbation Status: Acute (4) Fall Status: Acute (5) Head injury Status: Acute (6) Hypertension Status: Acute (7) Mood disorder Status: Acute (8) Orthostatic dizziness Status: Acute (9) Scalp laceration Status: Acute Review of Systems Male : + problem reported (retention) Psychiatric: + depression symptoms All Other Systems: Reviewed and Negative Medications Current Inpatient Medications Medications (Trade) Dose Ordered Sig/Frances Route Start Time Stop Time Status Last Admin Dose Admin Nitroglycerin (Nitrostat Tab) 0.4 mg UD PRN SL 01/19/18 13:00 02/18/18 12:59 Albuterol/ Ipratropium (Duoneb) 3 ml Q4H PRN INH 01/19/18 13:00 02/18/18 12:59 Lorazepam (Ativan Inj) PRN Dosing -Active Protocol Q1H PRN IV 01/19/18 13:00 02/18/18 12:59 01/20/18 07:47 1 MG Tiotropium [place] (Spiriva Handihaler Inhaler) 1 puff DAILY INH 01/20/18 09:00 02/19/18 08:59 01/24/18 09:36 1 PUFF Budesonide/ Formoterol Fumarate (Symbicort 160/ 4.5 Inh) 2 puffs BID INH 01/19/18 21:00 02/18/18 20:59 01/24/18 07:56 2 PUFFS Thiamine HCl (Vitamin B-1 Tab) 100 mg QAM PO 01/20/18 09:00 02/19/18 08:59 01/24/18 07:56 100 MG Folic Acid (Folvite Tab) 1 mg QAM PO 01/20/18 09:00 02/19/18 08:59 01/24/18 07:56 1 MG Enoxaparin Sodium (Lovenox Inj) 40 mg QAM SQ 01/21/18 09:00 02/20/18 08:59 01/21/18 09:17 40 MG Lorazepam (Ativan Tab) 1 mg Q8 PRN PO 01/20/18 18:15 02/19/18 18:14 01/23/18 09:53 1 MG Ondansetron HCl (Zofran Inj) 4 mg Q4H PRN IV 01/21/18 10:00 02/20/18 09:59 Doxazosin Mesylate (Cardura Tab) 4 mg DAILY PO 01/23/18 09:00 02/22/18 08:59 01/24/18 07:56 4 MG Finasteride (Proscar Tab) 5 mg DAILY PO 01/23/18 09:00 02/22/18 08:59 01/24/18 07:57 5 MG Sertraline HCl (Zoloft Tab) 150 mg QAM PO 01/24/18 09:00 02/23/18 08:59 01/24/18 09:37 150 MG Gabapentin (Neurontin Tab) 600 mg TID PO 01/24/18 09:00 01/24/18 23:00 01/24/18 14:10 600 MG Objective Vital Signs Date Time Temp Pulse Resp B/P (MAP) Pulse Ox O2 Delivery O2 Flow Rate FiO2 01/24/18 16:06 36.7 72 16 124/66 (85) 97 Room Air 01/24/18 08:00 Room Air 01/24/18 07:21 36.6 73 18 133/79 (97) 95 Room Air 01/24/18 00:14 36.4 71 17 157/92 (113) 97 Room Air 01/24/18 00:00 Room Air Physical Exam General Appearance: WD/WN, no apparent distress Eyes: normal inspection, EOMI, sclerae normal ENT: normal ENT inspection, hearing grossly normal, pharynx normal Neck: supple, no adenopathy, no JVD, trachea midline Respiratory/Chest: chest non-tender, lungs clear, normal breath sounds, no respiratory distress, no accessory muscle use Cardiovascular: regular rate, rhythm, no edema, no gallop, no JVD, no murmur Abdomen: normal bowel sounds, non tender, soft, no organomegaly Extremities: normal range of motion, non-tender, normal inspection, no pedal edema, no calf tenderness, normal capillary refill, pelvis stable 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/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: 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 as tested, alert, oriented x 3, + motor weakness (generalized), + depressed affect Skin: normal color, warm/dry, no rash Laboratory Results Last 24 Hours Test 01/24/18 07:26 01/24/18 08:43 Bedside Glucose 94 mg/dl White Blood Count 8.42 K/uL Red Blood Count 4.55 M/uL Hemoglobin 14.1 g/dL Hematocrit 41.2 % Mean Corpuscular Volume 90.5 fL Mean Corpuscular Hemoglobin 31.0 pg Mean Corpuscular Hemoglobin Concent 34.2 g/dl Platelet Count 121 K/uL Mean Platelet Volume 11.1 fL Neutrophils (%) (Auto) 79.5 % Lymphocytes (%) (Auto) 11.4 % Monocytes (%) (Auto) 4.6 % Eosinophils (%) (Auto) 3.8 % Basophils (%) (Auto) 0.1 % Neutrophils # (Auto) 6.69 K/uL Lymphocytes # (Auto) 0.96 K/uL Monocytes # (Auto) 0.39 K/uL Eosinophils # (Auto) 0.32 K/uL Basophils # (Auto) 0.01 K/uL RDW Standard Deviation 43.8 fL RDW Coefficient of Variation 13.2 % Immature Granulocyte % (Auto) 0.6 % Immature Granulocyte # (Auto) 0.05 K/uL Prothrombin Time 9.7 SECONDS Prothromb Time International Ratio 0.9 Activated Partial Thromboplast Time 24.2 SECONDS Partial Thromboplastin Ratio 0.9 Sodium Level 137 mmol/L Potassium Level 4.2 mmol/L Chloride Level 106 mmol/L Carbon Dioxide Level 24 mmol/L Anion Gap 7.0 mmol/L Blood Urea Nitrogen 19 mg/dl Creatinine 1.23 mg/dl Est Creatinine Clear Calc Drug Dose 58.2 ml/min Estimated GFR () 68.0 Estimated GFR (Non- 58.7 BUN/Creatinine Ratio 15.2 Random Glucose 112 mg/dl Calcium Level 8.3 mg/dl Phosphorus Level 3.1 mg/dl Magnesium Level 2.3 mg/dl Total Bilirubin 0.5 mg/dl Direct Bilirubin 0.1 mg/dl Aspartate Amino Transf (AST/SGOT) 16 U/L Alanine Aminotransferase (ALT/SGPT) 24 U/L Alkaline Phosphatase 70 U/L Total Protein 7.0 gm/dl Albumin 3.2 gm/dl Assessment and Plan 73 yo male with h/o alcoholism with recent rehab in the fall, presented with alcohol intoxication, hallucinations - Alcohol intoxication, now with signs of withdrawal switch to Neurontin 600mg TID for taper, taper tomorrow Ativan PRN folate and thiamine supplements will need to reconsider inpatient alcohol rehab - Elevated blood pressure likely from withdrawal symptoms, better today - COPD: breathing stable, lungs clear, continue Symbicort - Depression: Zoloft, dose increased to 150mg per psychiatry, no improvement yet , would not expect for weeks does not meet criteria for inpatient admission at this time - Hypokalemia: resolved, 4.0 yesterday, will stop supplementation - Urinary retention: resumed Finasteride and Doxazosin but still with retention urology placed dee, follow up in office was recommended TURP in the past - DVT prophylaxis: Lovenox need to determine if he will reconsider alcohol rehab
[2018-01-25 00:22] VITALS: BP 129/79; PULSE 80; TEMP 36.8; O2SAT 94
[2018-01-25 06:58] VITALS: BP 130/78; PULSE 73; TEMP 36.8; O2SAT 96
[2018-01-25 08:00] VITALS: O2SAT 96
[2018-01-25] MEDS: TIOTROPIUM BROMIDE 5 PUFF/90 MCG INH INH SCH (08:09)
[2018-01-25] MEDS: BUDESONIDE/FORMOTEROL FUMARATE 160/4.5 60 PUFFS/INHALER INH SCH ×2 (08:10→21:02)
[2018-01-25] MEDS: THIAMINE HCL 100 MG TAB PO SCH (08:11)
[2018-01-25] MEDS: DOXAZosin MESYLATE TAB 4 MG TAB PO SCH (08:11)
[2018-01-25] MEDS: FINASTERIDE 5 MG TAB PO SCH (08:11)
[2018-01-25] MEDS: ENOXAPARIN 40 MG/0.4 ML SYR SQ SCH (08:12)
[2018-01-25] MEDS: SERTRALINE HCL 100 MG TAB PO SCH (08:12)
--- NOTE | 2018-01-25 14:55 | Progress Note ---
Subjective Date of Service: Jan 25, 2018. Subjective Pt evaluation today including: conversation w/ patient, physical exam, lab review, review of inpatient medication list Pain: no pain PO Intake: adequate Voiding: dee catheter in place feels better with dee in place, no longer in discomfort discussed going to alcohol rehab, he is leaning towards agreeing with this plan eating well Problem List Medical Problems: (1) Alcohol intoxication Status: Acute (2) Alcohol intoxication Status: Acute (3) COPD exacerbation Status: Acute (4) Fall Status: Acute (5) Head injury Status: Acute (6) Hypertension Status: Acute (7) Mood disorder Status: Acute (8) Orthostatic dizziness Status: Acute (9) Scalp laceration Status: Acute Review of Systems Constitutional: + weakness, + fatigue Psychiatric: + depression symptoms, + substance abuse All Other Systems: Reviewed and Negative Medications Current Inpatient Medications Medications (Trade) Dose Ordered Sig/Frances Route Start Time Stop Time Status Last Admin Dose Admin Nitroglycerin (Nitrostat Tab) 0.4 mg UD PRN SL 01/19/18 13:00 02/18/18 12:59 Albuterol/ Ipratropium (Duoneb) 3 ml Q4H PRN INH 01/19/18 13:00 02/18/18 12:59 Lorazepam (Ativan Inj) PRN Dosing -Active Protocol Q1H PRN IV 01/19/18 13:00 02/18/18 12:59 01/20/18 07:47 1 MG Tiotropium [place] (Spiriva Handihaler Inhaler) 1 puff DAILY INH 01/20/18 09:00 02/19/18 08:59 01/25/18 08:09 1 PUFF Budesonide/ Formoterol Fumarate (Symbicort 160/ 4.5 Inh) 2 puffs BID INH 01/19/18 21:00 02/18/18 20:59 01/25/18 08:10 2 PUFFS Thiamine HCl (Vitamin B-1 Tab) 100 mg QAM PO 01/20/18 09:00 02/19/18 08:59 01/25/18 08:11 100 MG Folic Acid (Folvite Tab) 1 mg QAM PO 01/20/18 09:00 02/19/18 08:59 01/25/18 08:11 1 MG Enoxaparin Sodium (Lovenox Inj) 40 mg QAM SQ 01/21/18 09:00 02/20/18 08:59 01/21/18 09:17 40 MG Lorazepam (Ativan Tab) 1 mg Q8 PRN PO 01/20/18 18:15 02/19/18 18:14 01/23/18 09:53 1 MG Ondansetron HCl (Zofran Inj) 4 mg Q4H PRN IV 01/21/18 10:00 02/20/18 09:59 Doxazosin Mesylate (Cardura Tab) 4 mg DAILY PO 01/23/18 09:00 02/22/18 08:59 01/25/18 08:11 4 MG Finasteride (Proscar Tab) 5 mg DAILY PO 01/23/18 09:00 02/22/18 08:59 01/25/18 08:11 5 MG Sertraline HCl (Zoloft Tab) 150 mg QAM PO 01/24/18 09:00 02/23/18 08:59 01/25/18 08:12 150 MG Objective Vital Signs Date Time Temp Pulse Resp B/P (MAP) Pulse Ox O2 Delivery O2 Flow Rate FiO2 01/25/18 08:00 96 Room Air 01/25/18 06:58 36.8 73 20 130/78 (95) 96 01/25/18 00:22 36.8 80 18 129/79 (96) 94 Room Air 01/25/18 00:10 Room Air 01/24/18 16:06 36.7 72 16 124/66 (85) 97 Room Air 01/24/18 16:00 Room Air Physical Exam General Appearance: WD/WN, no apparent distress Eyes: normal inspection, EOMI, sclerae normal ENT: normal ENT inspection, hearing grossly normal, pharynx normal Neck: supple, no adenopathy, no JVD, trachea midline Respiratory/Chest: chest non-tender, lungs clear, normal breath sounds, no respiratory distress, no accessory muscle use Cardiovascular: regular rate, rhythm, no edema, no gallop, no JVD, no murmur Abdomen: normal bowel sounds, non tender, soft, no organomegaly Extremities: normal range of motion, non-tender, normal inspection, no pedal edema, no calf tenderness, pelvis stable Neurologic/Psychiatric: warranty coordinator II-XII nml as tested, alert, normal mood/affect, oriented x 3, + motor weakness (generalized) Skin: normal color, warm/dry, no rash Lymphatic: no adenopathy Laboratory Results Last 24 Hours Test 01/25/18 07:22 Bedside Glucose 222 mg/dl Assessment and Plan 73 yo male with h/o alcoholism with recent rehab in the fall, presented with alcohol intoxication, hallucinations - Alcohol intoxication, signs of withdrawal at time of admission stable now for days, no withdrawal symptoms continue Neurontin taper, 300mg TID today Ativan PRN folate and thiamine supplements patient willing to consider alcohol rehab at [place] [facility] - Elevated blood pressure likely from withdrawal symptoms, resolved for days - COPD: breathing stable, lungs clear, continue Symbicort - Depression: Zoloft, dose increased to 150mg per psychiatry, no improvement yet , would not expect for weeks does not meet criteria for inpatient admission at this time, denies suicidal thoughts - Hypokalemia: resolved, not on supplementation - Urinary retention: resumed Finasteride and Doxazosin but still with retention urology placed dee, follow up in office was recommended TURP in the past but refused - DVT prophylaxis: Lovenox
[2018-01-25] MEDS ORDERED: GABAPENTIN 300 MG CAP PO ONE (15:00)
[2018-01-25 15:24] VITALS: BP 130/75; PULSE 94; TEMP 36.5; O2SAT 95
[2018-01-25 16:00] VITALS: O2SAT 95
[2018-01-25] MEDS: GABAPENTIN 300 MG CAP PO SCH (21:02)
[2018-01-25 22:45] VITALS: BP 130/78; PULSE 75; TEMP 37; O2SAT 94
[2018-01-26 07:07] VITALS: BP 137/77; PULSE 67; TEMP 36.9; O2SAT 95
[2018-01-26 08:00] VITALS: O2SAT 95
[2018-01-26] MEDS: BUDESONIDE/FORMOTEROL FUMARATE 160/4.5 60 PUFFS/INHALER INH SCH ×2 (08:39→20:54)
[2018-01-26] MEDS: ENOXAPARIN 40 MG/0.4 ML SYR SQ SCH (08:39)
[2018-01-26] MEDS: TIOTROPIUM BROMIDE 5 PUFF/90 MCG INH INH SCH (08:39)
[2018-01-26] MEDS: DOXAZosin MESYLATE TAB 4 MG TAB PO SCH (08:40)
[2018-01-26] MEDS: FINASTERIDE 5 MG TAB PO SCH (08:40)
[2018-01-26] MEDS: GABAPENTIN 300 MG CAP PO SCH (08:40)
[2018-01-26] MEDS: THIAMINE HCL 100 MG TAB PO SCH (08:40)
[2018-01-26] MEDS: SERTRALINE HCL 100 MG TAB PO SCH (08:41)
--- NOTE | 2018-01-26 13:27 | Progress Note ---
Subjective Date of Service: Jan 26, 2018. Subjective Pt evaluation today including: conversation w/ patient, physical exam, lab review, review of inpatient medication list Pain: no pain PO Intake: adequate Voiding: dee catheter in place no new issues, eating well, sleeping a lot still considering inpatient alcohol rehab in [facility] no signs of withdrawal Problem List Medical Problems: (1) Alcohol intoxication Status: Acute (2) Alcohol intoxication Status: Acute (3) COPD exacerbation Status: Acute (4) Fall Status: Acute (5) Head injury Status: Acute (6) Hypertension Status: Acute (7) Mood disorder Status: Acute (8) Orthostatic dizziness Status: Acute (9) Scalp laceration Status: Acute Review of Systems Constitutional: + fatigue Psychiatric: + depression symptoms All Other Systems: Reviewed and Negative Medications Current Inpatient Medications Medications (Trade) Dose Ordered Sig/Frances Route Start Time Stop Time Status Last Admin Dose Admin Nitroglycerin (Nitrostat Tab) 0.4 mg UD PRN SL 01/19/18 13:00 02/18/18 12:59 Albuterol/ Ipratropium (Duoneb) 3 ml Q4H PRN INH 01/19/18 13:00 02/18/18 12:59 Lorazepam (Ativan Inj) PRN Dosing -Active Protocol Q1H PRN IV 01/19/18 13:00 02/18/18 12:59 01/20/18 07:47 1 MG Tiotropium [place] (Spiriva Handihaler Inhaler) 1 puff DAILY INH 01/20/18 09:00 02/19/18 08:59 01/26/18 08:39 1 PUFF Budesonide/ Formoterol Fumarate (Symbicort 160/ 4.5 Inh) 2 puffs BID INH 01/19/18 21:00 02/18/18 20:59 01/26/18 08:39 2 PUFFS Thiamine HCl (Vitamin B-1 Tab) 100 mg QAM PO 01/20/18 09:00 02/19/18 08:59 01/26/18 08:40 100 MG Folic Acid (Folvite Tab) 1 mg QAM PO 01/20/18 09:00 02/19/18 08:59 01/26/18 08:40 1 MG Enoxaparin Sodium (Lovenox Inj) 40 mg QAM SQ 01/21/18 09:00 02/20/18 08:59 01/26/18 08:39 40 MG Lorazepam (Ativan Tab) 1 mg Q8 PRN PO 01/20/18 18:15 02/19/18 18:14 01/23/18 09:53 1 MG Ondansetron HCl (Zofran Inj) 4 mg Q4H PRN IV 01/21/18 10:00 02/20/18 09:59 Doxazosin Mesylate (Cardura Tab) 4 mg DAILY PO 01/23/18 09:00 02/22/18 08:59 01/26/18 08:40 4 MG Finasteride (Proscar Tab) 5 mg DAILY PO 01/23/18 09:00 02/22/18 08:59 01/26/18 08:40 5 MG Sertraline HCl (Zoloft Tab) 150 mg QAM PO 01/24/18 09:00 02/23/18 08:59 01/26/18 08:41 150 MG Gabapentin (Neurontin Cap) 300 mg TID PO 01/25/18 21:00 02/24/18 20:59 01/26/18 08:40 300 MG Objective Vital Signs Date Time Temp Pulse Resp B/P (MAP) Pulse Ox O2 Delivery O2 Flow Rate FiO2 01/26/18 08:00 95 Room Air 01/26/18 07:07 36.9 67 16 137/77 (97) 95 01/26/18 00:00 Room Air 01/25/18 22:45 37.0 75 18 130/78 (95) 94 Room Air 01/25/18 19:00 Room Air 01/25/18 16:00 95 Room Air 01/25/18 15:24 36.5 94 18 130/75 (93) 95 Room Air Physical Exam General Appearance: WD/WN, no apparent distress Eyes: normal inspection, EOMI, sclerae normal ENT: normal ENT inspection, hearing grossly normal, pharynx normal Neck: supple, no adenopathy, no JVD, trachea midline Respiratory/Chest: chest non-tender, lungs clear, normal breath sounds, no respiratory distress, no accessory muscle use Cardiovascular: regular rate, rhythm, no edema, no gallop, no JVD, no murmur Abdomen: normal bowel sounds, non tender, soft, no organomegaly Extremities: normal range of motion, non-tender, normal inspection, no pedal edema, no calf tenderness, pelvis stable Neurologic/Psychiatric: 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 II-XII nml as tested, no motor/sensory deficits, alert, oriented x 3, + depressed affect Skin: normal color, warm/dry, no rash Assessment and Plan 73 yo male with h/o alcoholism with recent rehab in the fall, presented with alcohol intoxication, hallucinations - Alcohol intoxication, signs of withdrawal at time of admission stable now for days, no withdrawal symptoms continue Neurontin taper, 200mg TID today, 100mg TID tomorrow then stop Ativan PRN folate and thiamine supplements patient willing to consider alcohol rehab at [place] [facility] in [facility] case management to make referral on Saturday 01/27 - Elevated blood pressure likely from withdrawal symptoms, resolved for days - COPD: breathing stable, lungs clear, continue Symbicort - Depression: Zoloft, dose increased to 150mg per psychiatry, no improvement yet , would not expect for weeks does not meet criteria for inpatient admission at this time, not a danger to himself - Hypokalemia: resolved, not on supplementation - Urinary retention: resumed Finasteride and Doxazosin but still with retention urology placed dee, follow up in office was recommended TURP in the past but refused could be difficult for follow up if he goes to [place] can ask urology to consider void trial maybe mid week before he would go to rehab - DVT prophylaxis: Lovenox
[2018-01-26] MEDS: GABAPENTIN 100 MG CAP PO SCH ×2 (13:44→20:54)
[2018-01-26 15:12] VITALS: BP 123/75; PULSE 79; TEMP 36.6; O2SAT 93
[2018-01-26 16:00] VITALS: O2SAT 93
[2018-01-26] MEDS: LORAZEPAM 1 MG TAB PO PRN (20:55)
[2018-01-26 21:51] VITALS: BP 146/80; PULSE 79; TEMP 36.6; O2SAT 94
[2018-01-27 07:37] VITALS: BP 143/79; PULSE 67; TEMP 36.3; O2SAT 96
[2018-01-27] MEDS: GABAPENTIN 100 MG CAP PO SCH ×2 (07:51→21:15)
[2018-01-27] MEDS: FINASTERIDE 5 MG TAB PO SCH (07:51)
[2018-01-27] MEDS: TIOTROPIUM BROMIDE 5 PUFF/90 MCG INH INH SCH (07:51)
[2018-01-27] MEDS: BUDESONIDE/FORMOTEROL FUMARATE 160/4.5 60 PUFFS/INHALER INH SCH ×2 (07:51→21:14)
[2018-01-27] MEDS: THIAMINE HCL 100 MG TAB PO SCH (07:52)
[2018-01-27] MEDS: DOXAZosin MESYLATE TAB 4 MG TAB PO SCH (07:52)
[2018-01-27] MEDS: SERTRALINE HCL 100 MG TAB PO SCH (07:52)
[2018-01-27] MEDS: ENOXAPARIN 40 MG/0.4 ML SYR SQ SCH ×2 (07:53→07:55)
[2018-01-27 08:00] VITALS: O2SAT 96
--- NOTE | 2018-01-27 10:17 | Hospitalist Progress Note ---
Hospitalist Progress Note Date of Service Jan 27, 2018. (Raine Sauceda PA-C) Subjective Pt evaluation today including: conversation w/ patient, physical exam, chart review, lab review Pain: None PO Intake: Good Voiding: no voiding problems The patient was seen and examined this morning. Pt reports feeling well, denies any withdrawal symptoms including sweats, tremor, headache, or anxiety. He reports having some low back pain which is equal in both sides and states "I still feel like I have a urinary infection". Pt is concerned about needs for straight caths and ultimately wants dee out. He denies any other symptoms ROS: Constitutional: No fever, sweats or chills Eyes: No diplopia, no worsening or blurred vision ENT: normal hearing, no trouble swallowing Respiratory: No cough, sputum, dyspnea at rest or on exertion Cardiovascular: No chest pain, tightness or palpitations Abdomen: No pain, nausea, vomiting, diarrhea or constipation Musculoskeletal: No joint pain, calf pain, swelling Neurologic: No weakness, numbness/tingling, or balance problems Psychiatric: No anxiety or depression Skin: No rash or itch (Raine Sauceda PA-C) Objective Vital Signs Date Time Temp Pulse Resp B/P (MAP) Pulse Ox O2 Delivery O2 Flow Rate FiO2 01/27/18 08:00 96 Room Air 01/27/18 07:37 36.3 67 16 143/79 (100) 96 01/27/18 00:00 Room Air 01/26/18 21:51 36.6 79 20 146/80 (102) 94 Room Air 01/26/18 19:00 Room Air 01/26/18 16:00 93 Room Air 01/26/18 15:12 36.6 79 22 123/75 (91) 93 Room Air (Raine Sauceda PA-C) Physical Exam General Appearance: WD/WN, no apparent distress Eyes: PERRL, EOMI ENT: hearing grossly normal, pharynx normal Neck: supple, no JVD Respiratory/Chest: lungs clear, no respiratory distress, no accessory muscle use Cardiovascular: regular rate, rhythm, no murmur Abdomen: normal bowel sounds, non tender, soft, + pertinent finding (dee cath in place draining clear yellow urine) Extremities: non-tender, no pedal edema, no calf tenderness Neurologic/Psychiatric: alert, normal mood/affect, oriented x 3 Skin: normal color, warm/dry (Raine Sauceda PA-C) Laboratory Results Last 24 Hours Test 01/26/18 16:57 Bedside Glucose 113 mg/dl (Raine Sauceda PA-C) Assessment and Plan 73 yo male with h/o alcoholism with recent rehab in the fall, presented with alcohol intoxication, hallucinations Alcohol intoxication, signs of withdrawal at time of admission - stable now for days, no withdrawal symptoms - continue Neurontin taper, 200mg BID today, 100mg TID tomorrow then stop - Ativan PRN - folate and thiamine supplements - patient willing to consider alcohol rehab at [place] [facility] in [facility] case management made referral last Saturday - await follow up from facility today Elevated blood pressure - RESOVLED - likely from withdrawal symptoms initially COPD: breathing stable, lungs clear, continue Symbicort Depression: - Zoloft, dose increased to 150mg per psychiatry, no improvement yet, would not expect for 2-4 wks at minimum - does not meet criteria for inpatient admission at this time, not a danger to himself Hypokalemia: resolved, not on supplementation Urinary retention: resumed Finasteride and Doxazosin but still with retention - urology placed dee, follow up in office within 1 week after dc, will need to stay in for 7-10 days per recs. - was recommended TURP in the past but refused - could be difficult for follow up if he goes to [place] can ask urology to consider void trial maybe mid week before he would go to rehab DVT prophylaxis: Lovenox Disposition: From home, to assist with dc planning - [facility] (Raine Sauceda PA-C) Supervising Note Dr. Cervantes I performed a history and physical examination on the patient. I reviewed above note and agree with it. I discussed plan with APC and patient. During my face to face encounter with the patient, I answered all of the patient's questions. Patient would like to be seen by Urology for a TURP. He would like to have procedure done during hospital stay. I explained that this may not be possible. Will discuss with Urology tomorrow. (Jeovany Cervantes M.D.)
[2018-01-27 14:37] VITALS: BP 154/81; PULSE 79; TEMP 36.7; O2SAT 96
[2018-01-27 16:00] VITALS: O2SAT 96
[2018-01-27] MEDS: LORAZEPAM 1 MG TAB PO PRN (21:14)
[2018-01-28 00:15] VITALS: BP 157/81; PULSE 70; TEMP 36.7; O2SAT 96
[2018-01-28 07:18] VITALS: BP 122/75; PULSE 62; TEMP 36.4; O2SAT 94
[2018-01-28] MEDS: BUDESONIDE/FORMOTEROL FUMARATE 160/4.5 60 PUFFS/INHALER INH SCH (08:01)
[2018-01-28] MEDS: TIOTROPIUM BROMIDE 5 PUFF/90 MCG INH INH SCH (08:02)
[2018-01-28] MEDS: GABAPENTIN 100 MG CAP PO SCH (08:03)
[2018-01-28] MEDS: DOXAZosin MESYLATE TAB 4 MG TAB PO SCH (08:03)
[2018-01-28] MEDS: FINASTERIDE 5 MG TAB PO SCH (08:03)
[2018-01-28] MEDS: SERTRALINE HCL 100 MG TAB PO SCH (08:04)
[2018-01-28] MEDS: ENOXAPARIN 40 MG/0.4 ML SYR SQ SCH (08:04)
[2018-01-28] MEDS: THIAMINE HCL 100 MG TAB PO SCH (08:04)
[2018-01-28] MEDS ORDERED: SERT-234 PO (10:44)
[2018-01-28] MEDS ORDERED: THM100 PO (10:44)
--- NOTE | 2018-01-28 10:51 | Discharge Instructions ---
Discharge Instructions Date of Service Jan 28, 2018. Admission Reason for Admission: Delirium Tremens Discharge Discharge Diagnosis / Problem: Alcohol intoxication, delirium tremens Discharge Goals Goal(s): Decrease discomfort, Improve function, Increase independence, Improve disease control Activity Recommendations Activity Limitations: resume your previous activity Lifting Limitations: no more than 25 pounds, gradually increase as tolerated Exercise/Sports Limitations: rest today, gradually increase as tolerated May Resume Sexual Activity: when tolerated Shower/Bathe: no limitations Driving or Machine Use: no limitations . Instructions / Follow-Up Instructions / Follow-Up You were admitted to [facility] with alcohol intoxication and diagnosed with delirium tremens. During your stay here you were treated with intravenous fluids, electrolyte and vitamin replacement, and treated for withdrawal symptoms with medications which were weaned off during your admission. DO NOT DRINK ALCOHOL. Urinary Retention: During your stay here urinary retention required Urology to evaluate you, and an indwelling dee was placed. Dee catheter should remain in place for the next 7 days! Follow up with UROLOGY within 1 week at the [place] to have dee catheter removal and voiding trial. You should continue taking proscar to help with urinary retention. A TURP procedure has been recommended by [facility] urology, but this will need to be scheduled based upon your follow up with urology within the next week after the voiding trial is complete. Medications: Continue taking your medications as prescribed. Take vitamin B and folate to help replace vitamins with alcohol intoxication. Appointments: Follow up with your Primary Care Provider within 1 week. Follow up with urology within 1 week. Current Hospital Diet Patient's current hospital diet: Regular Diet Discharge Diet Recommended Diet: Regular Diet Pending Studies Studies pending at discharge: no Medical Emergencies . Who to Call and When: Medical Emergencies: If at any time you feel your situation is an emergency, please call 911 immediately. . Non-Emergent Contact Non-Emergency issues call your: Primary Care Provider, Urologist Call Non-Emergent contact if: you have a fever, temperature is above 100.5, your pain is not controlled, your pain is worsening, your pain is unusual for you, your pain is concerning you, you have any medication questions other concerns with your health. Call 911 or go directly to the Emergency Department if you experience any of the following: Chest pain, chest tightness, shortness of breath, abdominal pain , lightheadedness, dizziness, gastrointestinal bleeding, or have any other concerns regarding your health. . Past History Medical & Surgical History: (1) Alcohol intoxication (2) Delirium tremens (3) Major depressive disorder, recurrent, moderate . "Provider Documentation" section prepared by Leonora Sauceda. . VTE Core Measure Inpt VTE Proph given/why not?: Garett Hutchinson
[2018-01-28 11:05] VITALS: BP 122/75; PULSE 62; TEMP 36.4; O2SAT 94
--- NOTE | 2018-01-28 12:50 | Discharge Summary ---
Discharge Summary Date of Service Jan 28, 2018. Discharge Summary Admission Date: Jan 19, 2018 at 13:06 Discharge Date: Jan 28, 2018 Discharge Disposition: Home Principal Diagnosis: Etoh intoxication, delirium tremors Problems/Secondary Diagnoses: Medical Problems: (1) Alcohol dependence (2) Alcohol withdrawal (3) COPD (chronic obstructive pulmonary disease) (4) Delirium tremens (5) Hypertensive urgency (6) Major depressive disorder, recurrent, moderate (7) Mild emphysema Immunizations: Have You Had Influenza Vaccine: Unknown History of Tetanus Vaccine?: Unknown History of Pneumococcal: Unknown History of Hepatitis B Vaccine: Unknown Procedures: None Consultations: Urology 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 New Medications: Thiamine HCl (Vitamin B-1) 100 Mg Tab 100 MG PO QAM for 30 Days, #30 TAB Changed Medications: Sertraline (Zoloft) 100 Mg Tab 150 MG PO DAILY for 30 Days, #45 TAB (Changed from: 100 MG) Continued Medications: Budesonide/Formoterol Fumarate (Symbicort 160/4.5 Inhaler ) Unknown Strength Aero 2 PUFFS INH Doxazosin Mesylate (Cardura) 4 Mg Tab 4 MG PO DAILY, TAB Finasteride (Proscar) 5 Mg Tab 5 MG PO DAILY, TAB Folic Acid (Folvite) 1 Mg Tab 1 MG PO DAILY, TAB Tiotropium [place] (Spiriva Handihaler) 30 Puff/540 Mcg Aerp 1 CAP INH DAILY Discharge Exam The patient was seen and examined this morning. 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 Discussion was held regarding indwelling Dee catheter which is to continue for the next 7 days per urology. He was under the impression that a TURP procedure would be completed today, however urology who is already on his case has recommended a Dee stays for his at least 1 more week. He is in agreement with following as an outpatient for the TURP. The patient denies any sort of withdrawal symptoms including shaking, chills, sweats, headache. Hospital Course 73 yo male with h/o alcoholism with recent rehab in the fall, presented with alcohol intoxication, hallucinations Alcohol intoxication, signs of withdrawal at time of admission - stable now for days, no withdrawal symptoms - continue Neurontin taper, 100mg BID today and stop - Ativan PRN - folate and thiamine supplements - patient willing to consider alcohol rehab at [place] [facility] in [facility] - [facility] as he is [facility] under arrest per at time of discharge. Elevated blood pressure - RESOVLED - likely from withdrawal symptoms initially COPD: breathing stable, lungs clear, continue Symbicort Depression: - Zoloft, dose increased to 150mg per psychiatry, no improvement yet, would not expect for 2-4 wks at minimum - does not meet criteria for inpatient admission at this time, not a danger to himself Hypokalemia: resolved, not on supplementation Urinary retention: resumed Finasteride and Doxazosin but still with retention - urology placed dee, follow up in office within 1 week after dc, will need to stay in for 7 more days per recs. Discussed with urology prior to the patients discharge today. - Follow up with urology within the [place]/ or [facility] if incarcerated, within 1 week. Also should discuss having TURP as an outpatient DVT prophylaxis: Lovenox Disposition: From home, to assist with dc planning, discharged to home today. Supervising Note Dr. Cervantes I performed a history and physical examination on the patient. I reviewed above note and agree with it. I discussed plan with APC and patient. During my face to face encounter with the patient, I answered all of the patient's questions. Patient will f/u with urology as an outpatient for TURP. Will continue with dee for now. Currently has no signs of alcohol withdrawal. Total Time Spent: Greater than 30 minutes This includes examination of the patient, discharge planning, medication reconciliation, and communication with other providers. Discharge Instructions Please refer to the electronic Patient Visit Report (Discharge Instructions) for additional information. Follow-Up Follow up with your Primary Care Provider within 1 week. Follow up with urology within 1 week for indwelling dee catheter removal and void tiral, discussion about TURP Additional Copies To Lydia Gaines C.R.N.P.
[2018-01-28 13:27] VITALS: BP 145/80; PULSE 81; TEMP 36.3; O2SAT 95
[2018-01-28] MEDS ORDERED: GABAPENTIN 100 MG CAP PO SCH (21:00)
== END 2018-01-28 14:30 | disposition other institution (70) | DRG 897 ==
LOC: EDBD 22:29 → C.EDA 23:19 → C.MSICU 01-19 13:06 → ENRESERV 01-19 13:22 → C.MS2W 01-20 10:10 → ENRESERV 01-20 10:31
PROVIDERS: ADMIT Internal Medicine Sports Medicine; ATTEND Internal Medicine
DX: F10.221 Alcohol dependence with intoxication delirium (principal); F33.1 Major depressive disorder, recurrent, moderate; Y90.7 Blood alcohol level of 200-239 mg/100 ml; I16.0 Hypertensive urgency; F10.239 Alcohol dependence with withdrawal, unspecified; N40.0 Benign prostatic hyperplasia without lower urinary tract symptoms; J44.9 Chronic obstructive pulmonary disease, unspecified; F17.210 Nicotine dependence, cigarettes, uncomplicated; R33.9 Retention of urine, unspecified; R11.0 Nausea; E87.6 Hypokalemia; Z91.81 History of falling; Z65.3 Problems related to other legal circumstances; Z79.899 Other long term (current) drug therapy; Z83.3 Family history of diabetes mellitus; Z82.49 Family history of ischemic heart disease and other diseases of the circulatory system; Z81.1 Family history of alcohol abuse and dependence; Z81.3 Family history of other psychoactive substance abuse and dependence; Z81.8 Family history of other mental and behavioral disorders